=== PATIENT | female | born 1995 | race African-American/Black ===

== ENCOUNTER 2022-06-24 16:18 | Emergency (ER) | payer OTHER, SELFPAY ==
--- NOTE | 2022-06-24 16:21 | ED.SKABFB ---
HPI - Skin/Abscess/Foreign Bdy General Chief complaint: Skin/Abscess/Foreign Body Stated complaint: rash Time Seen by Provider: 06/24/22 16:21 Source: patient Mode of arrival: ambulatory Limitations: no limitations History of Present Illness HPI narrative: Pauline is a 27-year-old female patient presenting to the clinic today with complaints of a rash on her face. She reports she developed a rash approximately 3 days ago. States that the rash is a little irritating and itchy when she touches it otherwise it does not hurt. Related Data Allergies Allergy/AdvReac Type Severity Reaction Status Date / Time No Known Allergies Allergy Mild Verified 07/24/10 15:40 Review of Systems Review of Systems: Pertinent positives per HPI. Patient denies any fever, chills, headache, visual changes, dizziness, cough, runny nose, sore throat, shortness of breath, chest pain, palpitations, nausea, vomiting, diarrhea, constipation, abdominal pain, or any urinary issues. PMFSH Comments At the time of my signature, I reviewed and agree with the nursing past medical, surgical, social, and family history. There is no relevant family history pertinent to the patient complaint. Exam Narrative: General: Well-developed, well nourished, in no apparent distress Head: Normocephalic, atraumatic. Cardio: Regular rate and rhythm, s1 and s2 normal, no murmur appreciated. Resp: Clear to auscultation bilaterally, no rhonchi, rales, wheezing or rubs. Integumentary: [place], warm, and dry, intact without lesion, several acne pustules scattered on face Course Course Emergency Course: Portions of this record may have been created with voice recognition software. Level of Care: Express Care Visit Vital Signs Vital signs: Vital signs reviewed MDM - Skin/Abscess/Foreign Bdy MDM Narrative Medical decision making narrative: At the time of visit patient is resting comfortably on the exam table. I suspect patient may have acne. Prescription for benzyl peroxide and clindamycin gel was given and will have her follow-up with her PCP next week Differential Diagnosis Differential diagnosis: Likely abscess of skin or subcutaneous tissue, eczema, contact dermatitis and other (Acne vulgaris) Discharge Plan Discharge Clinical Impression: Acne vulgaris Patient Disposition: Home, Self-Care Condition: Stable Instructions: Antibiotic Form, Benzoyl Peroxide (On the skin) Additional Instructions: Wash face twice daily with benzyl peroxide and apply clindamycin gel Moisturize face daily using Cetaphil, Aquaphor, or Lubriderm Follow-up with your PCP in 1 week if symptoms persist or sooner if they worsen Prescriptions: New clindamycin phosphate 1 % gel 1 applic topical BID 30 Days Qty: 60 0RF benzoyl peroxide 4 % cleanser 1 applic topical BID 30 Days Qty: 150 0RF Follow-up/Referrals: UNKNOWN,DOCTOR [Non-Staff] - Time of Disposition: 16:47 Quality NIHSS Nursing Documentation ED NIHSS nursing documentation: reviewed/agree
[2022-06-24 16:29] VITALS: BP 109/64; PULSE 86; RESP 16; TEMP 36.5; O2SAT 100
== END 2022-06-24 16:54 | disposition home or self-care (01) ==
PROVIDERS: Emergency Provider Nurse Practitioner Family
DX: L70.0 Acne vulgaris (principal)
CPT/HCPCS: 99213; G0463

== ENCOUNTER 2023-08-19 08:28 | Emergency (ER) | payer OTHER, SELFPAY ==
[2023-08-19 08:32] VITALS: BP 121/68; PULSE 86; RESP 16; TEMP 36.4; O2SAT 100
[2023-08-19 08:56] VITALS: O2SAT 100
--- NOTE | 2023-08-19 09:01 | ED.URI ---
HPI - URI/Sore Throat General Chief Complaint: Upper Respiratory Infection Stated Complaint: strep throat? Time Seen by Provider: 08/19/23 08:45 History of Present Illness HPI Narrative: With a 28-year-old female presents to the emergency room for evaluation of a sore throat has been present for days. Patient denies fever, sinus congestion or of cough. Patient has been exposed to no known contacts of strep throat. Related Data Allergies Allergy/AdvReac Type Severity Reaction Status Date / Time amoxicillin [From Augmentin] AdvReac Nausea and Verified 08/19/23 08:58 Vomiting clavulanic acid AdvReac Nausea and Verified 08/19/23 08:58 [From Augmentin] Vomiting Review of Systems Review of Systems: CONSTITUTIONAL: Denies fever, chills, or sweats. EYES: Denies visual changes, redness, or discharge. ENT: Reports sore CARDIOVASCULAR: Denies chest pain, palpitations, or edema. RESPIRATORY: Denies cough or dyspnea. GASTROINTESTINAL: Denies abdominal pain, nausea, vomiting, or diarrhea. GENITOURINARY: Denies dysuria or hematuria. SKIN: Denies rash or itching. MUSCULOSKELETAL: Denies back pain, joint pain, or myalgia. NEUROLOGIC: Denies headache, numbness, dizziness, or weakness. PSYCHIATRIC: Denies anxiety or depression. Exam Narrative: GENERAL: Well-appearing, well-nourished, no physical limitations, and in no acute distress. HEAD: Normocephalic, atraumatic. EYES: Conjunctivae normal, PERRLA and EOMI. ENT: External nose normal, Nares clear, no rhinorrhea or epistaxis. Mucous membranes moist. Oropharynx without exudate, multiple tonsiliths NECK: Supple. CHEST: Clear to auscultation. No respiratory distress. No wheezes rales or rhonchi. HEART: Regular rate and rhythm. No murmur heard. Normal peripheral pulses. EXTREMITIES: Normal range of motion. No edema. No clubbing or cyanosis SKIN: Warm, dry, no rash. No noted wounds NEURO: No focal deficits. Alert and oriented x3. MAEW. CN's II-XI intact bilaterally, normal gait PSYCH: Cooperative. Normal mood and affect. Course Vital Signs Vital signs: Vital Signs Temperature 36.4 C 08/19/23 08:32 Pulse Rate 86 04/18/24 08:32 Respiratory Rate 16 08/19/23 08:32 Blood Pressure 121/68 08/19/23 08:32 Pulse Oximetry 100 08/19/23 08:32 Oxygen Delivery Room Air 08/19/23 08:32 Temperature 36.4 C 08/19/23 08:32 Pulse Rate 86 08/19/23 08:32 Respiratory Rate 16 08/19/23 08:32 Blood Pressure 121/68 08/19/23 08:32 Pulse Oximetry 100 08/19/23 08:56 Oxygen Delivery Room Air 08/19/23 08:56 MDM - URI/Sore Throat Lab Data Labs: Lab Results 08/19/23 08/19/23 Range/Units 08:39 09:33 Monoscreen Negative (Negative) Group A Strep (PCR) Not detected (Negative) Discharge Plan Discharge Clinical Impression: [place] Patient Disposition: Home, Self-Care Condition: Stable Instructions: Antibiotic Form Prescriptions: No Action clindamycin phosphate 1 % gel 1 applic topical BID 30 Days Qty: 60 0RF benzoyl peroxide 4 % cleanser 1 applic topical BID 30 Days Qty: 150 0RF Follow-up/Referrals: UNKNOWN,DOCTOR [Non-Staff] - Time of Disposition: 10:29
[2023-08-19 09:14] LABS: Strep Group A RT-PCR NOT DETECTED (Negative)
[2023-08-19 10:21] LABS: Monoscreen Negative (Negative); Negative Monotest Control Negative (Negative); Positive Monotest Control Positive (Positive)
[2023-08-19 10:30] VITALS: BP 129/80; PULSE 82; RESP 18; O2SAT 100
== END 2023-08-19 10:36 | disposition home or self-care (01) ==
PROVIDERS: Emergency Medicine; Emergency Provider Nurse Practitioner Family; Referring Provider Emergency Medicine
DX: J03.90 Acute tonsillitis, unspecified (principal)
CPT/HCPCS: 36415; 86308; 87651; 99283

== ENCOUNTER 2024-06-15 14:02 | Outpatient (CLI) | payer OTHER, SELFPAY ==
--- NOTE | ~2024-06-15 | US_ITS ---
EXAMINATION: US pelvic complete w TV DATE: 06/15/2024 15:08 INDICATION: Excessive and frequent menstruation TECHNIQUE: Multiple transabdominal and endovaginal sonographic images of the pelvis were obtained. COMPARISON: None. FINDINGS: The uterus measures 10.1 x 4.2 x 5.3 cm. The endometrial complex measures 14 mm in thickness. There are a few anechoic nabothian cysts at the cervix measuring up to 7 mm. The right ovary measures 2.3 x 1.9 x 1.6 cm. The left ovary measures 3.1 x 2.3 x 2.3 cm. Vascular flow identified at both ovaries o n color Doppler. There are prominent bilateral parametrial vessels. There is no free fluid in the pel vis. IMPRESSION: 1. Likely incidental prominent bilateral parametrial vessels and a few small nabothian cysts the cerv ix. Otherwise unremarkable pelvic ultrasound. Reviewed, dictated and finalized at location A. IONARY FIREMAN IMPRESSION: 1. Likely incidental prominent bilateral parametrial vessels and a few small na bothian cysts the cervix. Otherwise unremarkable pelvic ultrasound.
--- OUTSIDE RECORDS SUMMARY | 2024-06-15 14:08 | XMS_ITS | Patient Health Summary ---
Author Organization [facility] Address [address] [place] [address] Care Team Providers Care Internet Consultant Name Role Phone Pcp, Quin Mejia Im-Fm Primary Care Provider Unavailable Note from [facility],non-owned Affiliates and Associated Physician Practices is amultiple site organization consisting of ambulatory clinics and hospital sitesin [place], [place], [place] and [place]. This disclosure is being madepursuant to the Care Everywhere program and may not contain all information available regarding this patient. Last updated 18.[facility] Allergies * Amoxicillin-Pot Clavulanate(Vomiting) -Low Criticality Medications * Be aware that medications may not be up to date on this document. Alwaysverify current medications with the patient. * Multiple Vitamin (MULTI-VITAMIN DAILY PO) Take 2 Pieces by mouth once daily Active Problems Problem Noted Date Diagnosed Date Iron deficiency anemia 07/16/2021 Mechanical complication due to intrauterine contraceptive device Resolved Problems Problem Noted Date Diagnosed Date Resolved Date Gestational thrombocytopenia 09/11/2015 03/03/2021 IUGR (intrauterine growth restriction) 07/17/2015 09/25/2015 Encounter for supervision of normal first in second trimester 06/11/2015 09/25/2015 Small for gestational age fe tus affecting management of mother 09/25/2015 Encounter for supervision of normal first in third trimester 03/03/2021 Post-term , 40-42 weeks of gestation 03/03/2021 Arrest of descent, delivered , current hospitalization 03/03/2021 S/P 03/03/2021 Immunizations * Covid Pfizer primary monovalent 12+ yr 0.3mL Purple cap(Given 09/19/2020) * DTP(Given 07/20/1994, 1993, 1993, 1993) * DTaP VACCINE IM (6wk-6yrs)(Given 08/19/1998) * HEP A PED/ADULT VACCINE(Given 09/27/2007) * HEP A PEDS 2 DOSE(Given 12/30/2000) * HEP B VACCINE(Given 11/28/2007) * HEP B VACCINE, PED/ADOL(Given 09/27/2007) * HIB VACCINE(Given 1993, 1993, 1993) * Human Papilloma Virus Quadrivalent Vaccine(Given 04/10/2009) * INFLUENZA VACCINE(Given 02/01/2020) * INFLUENZA VACCINE, QUADR. (FLUZONE; FLULAVAL; FLUARIX; AFLURIA QUADRIVALENT; 6MO+), 0.5 ML (IIV4)(Given 04/11/2019, 04/06/2018, 06/11/2015) * MENINGOCOCCAL CONJUGATE (MCV4P)(Given 04/10/2009) * MMR(Given 08/19/1998, 02/11/1994) * POLIO OPV(Given 08/19/1998, 07/20/1994, 1993, 1993, 1993) * TDAP (7yrs+)(Given 08/07/2015, 04/10/2009, 09/27/2007) * VARICELLA(Given 04/10/2009) Social History Tobacco Use Types Packs/Day Years Used Date Smoking Tobacco: Never Smokeless Tobacco: Never Tobacco Cessation:Counseling Given: Not Answered Alcohol Use Standard Drinks/Week Comments No 0 (1 standard drink = 0.6 oz pur e alcohol) PHQ-2 Answer Date Recorded PHQ2 TOTAL SCORE 0 08/24/2022 Sex and Gender Information Value Date Recorded Sex Assigned at Not on file Gender Identity Not on file Sexual Orientation Not on file Last Filed Vital Signs Vital Sign Reading Time Taken Comments Blood Pressure 116/62 03/31/2023 10:18 AM BUILDING CERTIFIER Pulse 76 08/24/2022 9:25 AM CDT Temperature 36.6 C (97.8 F) 08/24/2022 8:51 AM CDT Respiratory Rate 16 08/24/2022 8:51 AM CDT Oxygen Saturation 100% 08/24/2022 8:51 AM CDT Inhaled Oxygen Concentration - - Weight 96.1 kg (211 lb 12.8 oz) 023 10:18 AM BUILDING CERTIFIER Height 170.2 cm (5' 7 ) 03/31/2023 10:1 8 AM BUILDING CERTIFIER Body Mass Index 33.17 03/31/2023 10:18 AM BUILDING CERTIFIER Procedures * US PELVIS W TRANSVAG NON OB(Performed 05/12/2023) Performed for Menorrhagia with regular cycle * URINALYSIS W/MICROSCOPIC REFLEX TO CULTURE(Performed 09/10/2022) Performed for Urinary incontinence, unspecified type * CULTURE URINE REFLEXED III(Performed 09/10/2022) * URINALYSIS W/MICROSCOPIC REFLEX TO CULTURE(Performed 09/01/2022) * CULTURE URINE(Performed 09/01/2022) * CULTURE URINE REFLEXED II(Performed 09/01/2022) * US PELVIS W TRANSVAG W DOP NON OB(Performed 04/08/2022) Performed for Menorrhagia with regular cycle * US PELVIS W TRANSVAG W DOP NON OB(Performed 02/06/2022) Performed for Menorrhagia with regular cycle, Urinary incontinence, unspecified type * URINALYSIS MICROSCOPIC ONLY REFLEXED(Performed 01/26/2022) Performed for Urinary incontinence, unspecified type * CULTURE URINE(Performed 01/26/2022) Performed for Urinary incontinence, unspecified type * URINALYSIS REFLEX MICROSCOPIC REFLEX CULTURE(Performed 01/20/2022) Performed for Urinary incontinence, unspecified type * PAP IG LB+HPV APTIMA(Performed 03/03/2021) Performed for Well woman exam with routine gynecological exam * TRICHOMONAS RAPID TEST(Performed 03/03/2021) Performed for Well woman exam with routine gynecological exam * CHLAMYDIA + GC AMPLIFIED PROBE(Performed 03/03/2021) Performed for Well woman exam with routine gynecological exam * CARDIAC RHYTHM STRIP ORDER(Performed 11/07/2018) * PATHOLOGY TISSUE EXAM (STL)(Performed 11/02/2018) Performed for Diagnosis unknown * DILATION AND CURETTAGE (D&C) / SUCTION(Performed 11/02/2018) Performed for Diagnosis unknown * HCG URINE QUALITATIVE - POCT (IP) INTERFACED(Performed 11/02/2018) * HCG URINE QUAL POCT NOTIFICATION(Performed 11/02/2018) Performed for Preop examination * WA REMOVE INTRAUTERINE DEVICE(Performed 10/30/2018) Performed for Attempted IUD removal, unsuccessful * HCG URINE QUALITATIVE - POINT OF CARE (AMB)(Performed 10/28/2018) Performed for Attempted IUD removal, unsuccessful * HEPATITIS SCREEN ACUTE(Performed 01/07/2018) Performed for Healthcare maintenance * RPR(Performed 01/07/2018) Performed for Healthcare maintenance * HIV-1 HIV-2 ANTIBODY + HIV P24 AG PANEL(Performed 01/07/2018) Performed for Healthcare maintenance * TRICHOMONAS RAPID TEST(Performed 01/07/2018) Performed for Healthcare maintenance * CHLAMYDIA + GC AMPLIFIED PROBE(Performed 01/07/2018) Performed for Healthcare maintenance * HCG URINE QUALITATIVE - POCT (IP) SLH(Performed 01/29/2017) * PAP LB RFLX HPV ASCU(Performed 12/29/2016) Performed for Well woman exam * HPV DNA PROBE HIGH RISK(Performed 12/29/2016) Performed for Well woman exam * CHLAMYDIA + GC AMPLIFIED PROBE(Performed 12/29/2016) Performed for Well woman exam * PATHOLOGY/GENETICS HISTORICAL-ONBASE(Performed 12/29/2016) * CBC W AUTO DIFFERENTIAL(Performed 12/24/2015) * HCG URINE QUALITATIVE - POINT OF CARE(Performed 12/24/2015) * LAB RESULTS ORDER(Performed 11/18/2015) * IMAGING/RADIOLOGY/XRAY RESULTS ORDER(Performed 11/18/2015) * CBC W AUTO DIFFERENTIAL(Performed 11/14/2015) * GENTAMICIN LEVEL RANDOM(Performed 11/14/2015) * CROSSMATCH RBC LEUKOREDUCED(Performed 11/13/2015) Performed for Post-term , 40-42 weeks of gestation ([facility]), Encounter for supervision of normal first in third trimester ([facility]), Gestational thrombocytopenia, third trimester ([facility]) * CROSSMATCH RBC LEUKOREDUCED(Performed 11/13/2015) Performed for Post-term , 40-42 weeks of gestation ([facility]), Encounter for supervision of normal first in third trimester ([facility]), Gestational thrombocytopenia, third trimester ([facility]) * PATHOLOGY TISSUE EXAM (STL)(Performed 11/13/2015) Performed for Diagnosis unknown * BLOOD GASES CORD GALINDO (ISTAT)(Performed 11/13/2015) * BLOOD GASES CORD ART (ISTAT)(Performed 11/13/2015) * NEURAXIAL BLOCK(Performed 11/12/2015) * TYPE + SCREEN PANEL(Performed 11/11/2015) * CBC W AUTO DIFFERENTIAL(Performed 11/11/2015) * CBC W AUTO DIFFERENTIAL(Performed 11/06/2015) * GLUCOSE PROTEIN KETONE URINE - POINT OF CAR(Performed 11/06/2015) * CBC W AUTO DIFFERENTIAL(Performed 10/30/2015) * GLUCOSE PROTEIN KETONE URINE - POINT OF CAR(Performed 10/30/2015) * PLATELET COUNT AUTO(Performed 10/23/2015) * GLUCOSE PROTEIN KETONE URINE - POINT OF CAR(Performed 10/23/2015) * GLUCOSE PROTEIN KETONE URINE - POINT OF CAR(Performed 10/16/2015) * CBC W AUTO DIFFERENTIAL(Performed 10/09/2015) * CULTURE STREP B(Performed 10/09/2015) * GLUCOSE PROTEIN KETONE URINE - POINT OF CAR(Performed 10/09/2015) * GLUCOSE PROTEIN KETONE URINE - POINT OF CAR(Performed 09/25/2015) * GLUCOSE PROTEIN KETONE URINE - POINT OF CAR(Performed 09/11/2015) * GLUCOSE PROTEIN KETONE URINE - POINT OF CAR(Performed 08/21/2015) * GLUCOSE CHALLENGE(Performed 08/07/2015) * HIV-1 HIV-2 ANTIBODY + HIV P24 AG PANEL(Performed 08/07/2015) * RPR(Performed 08/07/2015) * CBC W AUTO DIFFERENTIAL(Performed 08/07/2015) * SONOGRAM - COMPLETE(Performed 08/07/2015) Performed for Encounter for supervision of normal first in second trimester ([facility]) * GLUCOSE PROTEIN KETONE URINE - POINT OF CAR(Performed 08/07/2015) * GLUCOSE PROTEIN KETONE URINE - POINT OF CAR(Performed 07/17/2015) * SONOGRAM - COMPLETE(Performed 07/17/2015) * SONOGRAM - COMPLETE(Performed 06/11/2015) * SECTION (EMERGENCY) Results * US PELVIS W TRANSVAG NON OB (05/12/2023 12:59 PM BUILDING CERTIFIER) Anatomical Region Laterality Modality Pelvis Ultrasound 05/12/2023 2:45 PM BUILDING CERTIFIER Impressions 05/12/2023 2:52 PM BUILDING CERTIFIER IMPRESSION: Endometrium measures about 1.1 cm. Otherwise, unremarkable ultrasound of the uterus and both ovaries, visualized only transvaginally. Edited by Jaz Pollack on 05/12/2023 2:51 PM > Interpreting Provider: Alma Lim MD on 05/12/2023 2:52 PM Narrative 05/12/2023 2:52 PM BUILDING CERTIFIER ULTRASOUND OF THE PELVIS WITH TRANSVAGINAL EVALUATION DATE: 05/12/2023 12:59 PM HISTORY: N92.0: Excessive and frequent menstruation with regular cycle. COMPARISON: None available. FINDINGS: TRANSABDOMINAL STUDY: Multiple transverse, longitudinal and oblique images of the pelvis were obtained with the bladder suboptimally distended. Anteverted uterus identified. The ovaries are not visualized. No free fluid seen. TRANSVAGINAL STUDY: After the patient voided, transvaginal ultrasound showed the endometrium measuring 1.1 cm. The uterus measures 9.0 x 4.9 x 4.7 cm. The left ovary measures 2.2 x 2.5 x 2.3 cm. The right ovary measures 1.9 x 1.5 x 1.7 cm. No free fluid seen. Procedure Note Alma Lim MD - 05/12/2023 ULTRASOUND OF THE PELVIS WITH TRANSVAGINAL EVALUATION DATE: 05/12/2023 12:59 PM HISTORY: N92.0: Excessive and frequent menstruation with regular cycle. COMPARISON: None available. FINDINGS: TRANSABDOMINAL STUDY: Multiple transverse, longitudinal and obliqueimages of the pelvis were obtained with the bladder suboptimally distended. Anteverted uterus identified. The ovaries are not visualized. No freefluid seen. TRANSVAGINAL STUDY: After the patient voided, transvaginal ultrasound showed the endometrium measuring 1.1 cm. The uterus measures 9.0 x 4.9 x 4.7 cm. The left ovary measures 2.2 x 2.5 x 2.3 cm. The right ovary measures 1.9 x 1.5 x 1.7 cm. No free fluid seen. IMPRESSION: Endometrium measures about 1.1 cm. Otherwise, unremarkable ultrasound of the uterus and both ovaries, visualized only transvaginally. Edited by Jaz Pollack on 05/12/2023 2:51 PM > Interpreting Provider: Alma Lim MD on 05/12/2023 2:52 PM Todd Pettit MD US ORDERABLES * CULTURE URINE REFLEXED III (09/10/2022 8:36 AM CDT) Reflexive Urine Culture See Below [facility] Comment: NO CULTURE INDICATED Test Performed at: [address] [address] NEYMAR POLLACK MD 09/10/2022 8:36 AM CDT 09/10/2022 8:36 AM CDT Jeannette Mcghee MD LAB - MICROBIOLOGY O RDERABLES Performing Organization Address City/[facility]/ZIP Co de Phone Number [address] [address] * (ABNORMAL) URINALYSIS W/MICROSCOPIC REFLEX TO CULTURE (09/10/2022 8:36 AM CDT) Only the most recent of2 resultswithin the time period is included. Pathologist [facility] Color UA DARK YELLOW YELLOW [facility] Appearance CLEAR CLEAR [facility] Specific [place] UA 1.029 1.001 - 1.035 [facility] pH UA 7.5 5.0 - 8.0 [facility] Glucose UA NEGATIVE NEGATIVE [facility] Bilirubin UA NEGATIVE NEGATIVE [facility] Ketone UA TRACE(A) NEGATIVE [facility] Blood UA NEGATIVE NEGATIVE [facility] Protein UA TRACE(A) NEGATIVE [facility] Nitrite NEGATIVE NEGATIVE [facility] Leukocyte Esterase NEGATIVE NEGATIVE [facility] WBC UA 0-5 < OR = 5 /HPF [facility] RBC UA NONE SEEN < OR = 2 /HPF [facility] Epithelial Cell UA 0-5 < OR = 5 /HPF [facility] Bacteria UA NONE SEEN NONE SEEN /HPF [facility] Hyaline Casts NONE SEEN NONE SEEN /LPF [facility] Comment: Test Performed at: [address] [id number] NEYMAR POLLACK MD Urine URINE SPECIMEN OBTAINED BY CLEAN CATCH PROCEDURE / Unknown 09/10/2022 8:36 AM CDT 09/10/2022 8:36 AM CDT Jeannette Mcghee MD LAB - URINALYSIS ORD ERABLES Performing Organization Address [facility] Co de Phone Number [address] [address] * CULTURE URINE REFLEXED II (09/01/2022 8:10 AM CDT) [facility] Reflexive Urine Culture See Below [facility] Comment: CULTURE INDICATED - RESULTS TO FOLLOW Test Performed at: [facility] [address] NEYMAR POLLACK MD 09/01/2022 8:10 AM CDT 09/01/2022 8:11 AM CDT Victorina Leahy APRN-SLIDE FASTENER REPAIRER LAB - MICROBIO LOGY ORDERABLES Performing Organization Address [facility] de Phone Number [address] [address] * CULTURE URINE (09/01/2022 8:10 AM CDT) Only the most recent of2 resultswithin the time period is included. Culture [facility] Comment: CULTURE, URINE, ROUTINE Micro Number: [id number] Test Status: Final Specimen Source: Urine Specimen Quality: Adequate Result: No Growth Test Performed at: [facility] [address] NEYMAR POLLACK MD 09/01/2022 8:10 AM CDT 09/01/2022 8:11 AM CDT Victorina Leahy APRN-SLIDE FASTENER REPAIRER LAB - MICROBIO LOGY ORDERABLES Performing Organization Address [facility] de Phone Number [place] [phone] * US PELVIS W TRANSVAG W DOP NON OB (04/08/2022 11:39 AM BUILDING CERTIFIER) Only the most recent of2 resultswithin the time period is included. Anatomical Region Laterality Modality Pelvis Ultrasound 04/08/2022 11:4 2 AM BUILDING CERTIFIER Impressions 04/08/2022 11:44 AM BUILDING CERTIFIER IMPRESSION: Thickening of the endometrium without discrete endometrial or uterine mass. 2.1 cm resolving hemorrhagic cyst within the ovary. > Interpreting Provider: Ar Diop MD on 04/08/2022 11:44 AM Narrative 04/08/2022 11:44 AM BUILDING CERTIFIER Procedure: US PELVIS W TRANSVAG W DOP NON OB Exam Date: 04/08/2022 11:39 AM Location: [facility] INDICATION: N92.0: Excessive and frequent menstruation with regular cycle FINDINGS: The study is compared to the exam from January 2022. The uterus measured 0.8 x 5.2 x 6.5 cm. There is no uterine mass. Endometrial stripe is thickened measuring 2.3 mm. There is no endometrial mass. The right ovary measured 3.5 x 1.7 x 3.7 cm. There is no mass. Normal color Doppler and spectral waveforms are noted. The left ovary measured 4.5 x 2.7 x 1.8 cm. There appears to be a 2.1 cm resolving hemorrhagic cyst within the left ovary. Normal color Doppler and spectral waveforms are noted. No significant free fluid is seen within the pelvis. Procedure Note Ar Diop MD - 04/08/2022 Procedure: US PELVIS W TRANSVAG W DOP NON OB Exam Date: 1:39 AM Location: [facility] INDICATION: N92.0: Excessive and frequent menstruation with regularcycle FINDINGS: The study is compared to the exam from January 2022. The uterus measured 0.8 x 5.2 x 6.5 cm. There is no uterine mass. Endometrial stripe is thickened measuring 2.3 mm. There is noendometrial mass. The right ovary measured 3.5 x 1.7 x 3.7 cm. There is no mass. Normalcolor Doppler and spectral waveforms are noted. The left ovary measured 4.5 x 2.7 x 1.8 cm. There appears to be a 2.1 cm resolving hemorrhagic cyst within the left ovary. Normal color Dopplerand spectral waveforms are noted. No significant free fluid is seen within the pelvis. IMPRESSION: Thickening of the endometrium without discrete endometrial or uterinemass. 2.1 cm resolving hemorrhagic cyst within the ovary. > Interpreting Provider: Ar Diop MD on 04/08/2022 11:44 AM Jeannette Mcghee MD US ORDERABLES * URINALYSIS MICROSCOPIC ONLY REFLEXED (01/26/2022 10:21 AM CDT) WBC UA None seen 0 - 5 /hpf [facility] INSURANCE BILL RBC UA None seen 0 - 2 /hpf [facility] INSURANCE BILL Epithelial Cells (non renal) 0-10 0 - 10 /hpf [facility] INSURANCE BILL Epithelial Cells (renal) NOT AVAILABLE [facility] INSURANCE BILL Comment:Result cannot be obt ained for this observation. Casts ua None seen None seen /lpf [facility] INSURANCE BILL Casts UA NOT AVAILABLE [facility] INSURANCE BILL Comment:Result cannot be obt ained for this observation. Crystals UA NOT AVAILABLE [facility] INSURANCE BILL Comment:Result cannot be obt ained for this observation. Crystals UA NOT AVAILABLE [facility] INSURANCE BILL Comment:Result cannot be obt ained for this observation. Mucus UA NOT AVAILABLE [facility] INSURANCE BILL Comment:Result cannot be obt ained for this observation. Bacteria UA None seen None seen/Few [facility] INSURANCE BILL Yeast UA NOT AVAILABLE [facility] INSURANCE BILL Comment:Result cannot be obt ained for this observation. Trichomonas UA NOT AVAILABLE [facility] BILL Comment:Result cannot be obt ained for this observation. Comment Urine NOT AVAILABLE [facility] INSURANCE BILL Comment:Result cannot be obt ained for this observation. 01/26/2022 10:2 1 AM CDT 01/26/2022 Narrative Resulting Agency Comment [facility] [address] [id number] Jeannette Mcghee MD LAB - URINALYSIS ORD ERABLES [facility] INSURANCE BILL [address] [place] [address] * (ABNORMAL) URINALYSIS REFLEX MICROSCOPIC REFLEX CULTURE (01/20/2022 3:30 PM CDT) Specific [place] UA 1.012 1.005 - 1.030 [facility] INSURANCE BILL pH UA 7.5 5.0 - 7.5 [facility] INSURANCE BILL Color UA Yellow Yellow [facility] INSURANCE BILL Appearance Clear Clear [facility] INSURANCE BILL Leukocyte UA Trace(A) Negative [facility] INSURANCE BILL Protein UA Negative Negative/Tr tam [facility] INSURANCE BILL Glucose UA Negative Negative [facility] INSURANCE BILL Ketone UA Negative Negative [facility] INSURANCE BILL Occult Blood Urine Negative Negative [facility] INSURANCE BILL Bilirubin UA Negative Negative [facility] INSURANCE BILL Urobilinogen 0.2 0.2 - 1.0 mg/dL [facility] INSURANCE BILL Nitrite UA Negative Negative [facility] INSURANCE BILL Microscopic Examination Urine See below: [facility] INSURANCE BILL Comment:Microscopic was dona cated and was performed. Microscopic Examination Urine NOT AVAILABLE [facility] INSURANCE BILL Comment:Result cannot be obt ained for this observation. Urinalysis Reflex [facility] INSURANCE BILL Comment:This specimen has re flexed to a Urine Culture. Urine URINE SPECIMEN OBTAINED BY CLEAN CATCH PROCEDURE / Unknown 01/20/2022 3:30 PM CDT 01/26/2022 Narrative Resulting Agency Comment [facility] performed at: [facility] [address] [id number] Jeannette Mcghee MD LAB - URINALYSIS ORD ERABLES Performing Organization Address City/[facility]/ZIP Co de Phone Number [facility] [employer] INSURANCE BILL [address] [place] [address] * CHLAMYDIA + GC AMPLIFIED PROBE (STL) (03/03/2021 2:01 PM CDT) Chlamydia Amplified Probe Negative Negative 03/03/2021 10:40 PM CDT [facility] GC Amplified Probe Negative Negative 03/03/2021 10:40 PM CDT [facility] Microbiology PART OF UTERINE CERVIX / Unknown Collection / Unknown 03/03/2021 2:01 PM CDT 03/03/2021 2:15 PM CDT Narrative [facility] - 03/03/2021 10:40 PM CDT Results based on detection/no detection of ribosomal RNA by amplified method. Anuradha Kumar MD LAB - MICROBIOLOGY O RDERABLES [facility] [address] [place] [address], [facility] [phone] * PAP IG LB+HPV APTIMA (03/03/2021 2:01 PM CDT) Diagnosis Comment 03/07/2021 5:08 AM CDT [facility] ([facility]) Comment:NEGATIVE FOR INTRAEP ITHELIAL LESION OR MALIGNANCY. Specimen Adequacy Comment 5:08 AM CDT [facility] ([facility]) Comment: Satisfactory for evaluation. Endocervical and/or squamous metaplastic cells (endocervical component) are present. Performed by Comment 03/07/2021 5:08 AM CDT [facility] ([facility]) Comment:Yann Miles, Cyto technologist (ASCP) Comment . 03/07/2021 5:08 AM CDT [facility] ([facility]) Note Comment 03/07/2021 5:08 AM CDT [facility] ([facility]) Comment: The Pap smear is a screening test designed to aid in the detection of premalignant and malignant conditions of the uterine cervix. It is not a diagnostic procedure and should not be used as the sole means of detecting cervical cancer. Both false-positive and false-negative reports do occur. [facility] CPT Code Automation Comment 03/07/2021 5:08 AM CDT [facility] ([facility]) Comment: This liquid based ThinPrep(R) pap test was screened with the use of an image guided system. Human papillomavirus Aptima Negative Negative 03/07/2021 5:08 AM CDT [facility] ([facility]) Comment: This nucleic acid amplification test detects fourteen high-risk HPV types (16,18,31,33,35,39,45,51,52,56,58,59,66,68) without differentiation. Pathology/Cytolo gy PART OF UTERINE CERVIX / Unknown Collection / Unknown 03/03/2021 2:01 PM CDT 03/03/2021 2:14 PM CDT Narrative [facility] ([facility]) - 03/07/2021 5:08 AM CDT Performed at: 01 - [address] [id number] Marking Room Supervisor: Joy Pyle MD, Phone: [phone] Performed at: 02 - [facility] [id number] Marking Room Supervisor: Joy Pyle MD, Phone: [phone] Specimen Comment: No. of containers..01 ThinPrep Vial Anuradha Kumar MD LAB - PATHOLOGY/CYTO LOGY ORDERABLES [facility] ([facility]) [address] [place] [address] * TRICHOMONAS RAPID TEST (03/03/2021 2:01 PM CDT) Only the most recent of2 resultswithin the time period is included. Trichomonas Rapid Test Negative Negative 03/03/2021 2:45 PM CDT [facility] Microbiology VAGINAL SWAB / Unknown Collection / Unknown 03/03/2021 2:01 PM CDT 03/03/2021 2:15 PM CDT Anuradha Kumar MD LAB - MICROBIOLOGY O RDERABLES [facility] [address] [place] [address] * CARDIAC RHYTHM STRIP ORDER (11/07/2018 12:24 PM CDT) Narrative 11/07/2018 12:24 PM CDT Ordered by an unspecified provider. Scanned Document CARDIAC SERVICES ORD ERABLES * GROSS + MICRO EXAM (STL) (11/02/2018 1:38 PM CDT) Only the most recent of2 resultswithin the time period is included. Case Report Surgical Pathology Report Case: [id number] Authorizing Provider: Anuradha Kumar MD Collected: 11/02/2018 01:38 PM Ordering Location: [facility]TRA Received: 11/02/2018 02:06 PM Pathologist: Sandi Vick MD Specimen: IUD, For gross only please 11/04/2018 10:16 AM CDT [facility] Final Diagnosis 1. Foreign object, intrauterine device, removal: -- Intrauterine device /AQ/jam 11/04/2018 10:16 AM CDT [facility] Clinical History 23 year old female 11/04/2018 10:16 AM CDT [facility] Gross Description The requisition and specimen labels are identified with the patient's name, Pauline Gallego. Specimen A intrauterine device, for gross examination only consists of a T-shaped white plastic copper device with horizontal arm measuring 3.1 cm and vertical arm measuring 2.9 cm. There is a metallic wire attached measuring 2.2 cm. No soft tissue is identified attached to the specimen. No sections are taken. /KS/jam 11/04/2018 10:16 AM CDT [facility] Disclaimer All histochemical and/or immunohistochemical results are interpreted with controls that demonstrate appropriate staining reactions before reporting results. Note on use of immunocytochemistry reagents: This test was developed and its performance characteristic determined by [facility] [facility] Department of Laboratory Medicine. It has not been cleared or approved by the U.S. Food and Drug Administration (FDA). The FDA has determined that such clearance or approval is not necessary. The test is used for clinical purpose. It should not be regarded as investigational or for research. This laboratory is certified to perform high complexity testing. 11/04/2018 10:16 AM CDT [facility] Embedded Images 11/04/2018 10:16 AM CDT [facility] Pathology/Cytolo gy INTRAUTERINE CONTRACEPTIVE DEVICE SUBMITTED SPECIMEN / Unknown 11/02/2018 1:38 PM CDT 11/02/2018 2:06 PM CDT Anuradha Kumar MD LAB - PATHOLOGY/CYTO LOGY ORDERABLES [facility] [address] [place] [phone] * HCG URINE QUALITATIVE - POCT (IP) INTERFACED (11/02/2018 12:09 PM CDT) HCG Qual Urine Negative Negative 11/02/2018 12:11 PM CDT [facility] Urine URINE / Unknown 11/02/2018 1 2:09 PM CDT 11/02/2018 12:11 PM CDT Anuradha Kumar MD LAB - POINT OF CARE ORDERABLES [facility] [address] [place] [id number] * HCG URINE QUAL POCT NOTIFICATION (11/02/2018 11:59 AM CDT) Comment Notification Label Only - See Separate Report 11/02/2018 1:00 PM CDT [facility] Urine URINE / Unknown 11/02/2018 1 1:59 AM CDT 11/02/2018 11:59 AM CDT Carlos Pina MD LAB - URINALYSIS OR DERABLES Performing Organization Address City/[facility]/ZIP Co de Phone Number [facility] [address] [place] [address] * [place] REMOVE INTRAUTERINE DEVICE (10/30/2018 6:24 PM CDT) Narrative Lisa Contreras MD - 10/30/2018 6:24 PM CDT Lisa Contreras MD 10/30/2018 6:24 PM See PN Lisa Contreras MD PROCEDURE/MINOR SURG ICAL ORDERABLES * HCG URINE QUALITATIVE - POINT OF CARE (AMB) (10/28/2018) Pathologist [facility] HCG Qual Urine Negative Negative QC Verified Yes Yes Urine URINE / Unknown 10/28/2018 Lisa Contreras MD LAB - POINT OF CARE ORDERABLES * HIV-1 HIV-2 ANTIBODY + HIV P24 AG PANEL (01/07/2018 1:40 PM CDT) Only the most recent of2 resultswithin the time period is included. Pathologist [facility] HIV1/2 Ab + P24 Ag Non Reactive Non Reactive 01/07/2018 4:39 PM CDT [facility] Blood BLOOD SPECIMEN / Unknown Venipuncture / Unknown 01/07/2018 1:40 PM CDT 01/07/2018 1:47 PM CDT Narrative [facility] - 01/07/2018 4:39 PM CDT No Laboratory evidence of HIV infection. Terrie Saez MD LAB - CHEMISTRY HUGO JENKINS [facility] [address] [place] [address] * RPR (01/07/2018 1:40 PM CDT) Only the most recent of2 resultswithin the time period is included. RPR Non Reactive Non Reactive 01/08/2018 11:32 AM CDT [facility] Blood BLOOD SPECIMEN / Unknown Venipuncture / Unknown 01/07/2018 1:40 PM CDT 01/07/2018 1:47 PM CDT Terrie Saez MD LAB - CHEMISTRY HUGO GREGORY Performing Organization Address City/[facility]/ZIP Co de Phone Number [facility] [address] [place] [address] * CHLAMYDIA + GC AMPLIFIED PROBE (01/07/2018 1:40 PM CDT) Only the most recent of2 resultswithin the time period is included. [facility] Chlamydia Amplified Probe Negative Negative 01/10/2018 10:24 AM CDT [facility] GC Amplified Probe Negative Negative 01/10/2018 10:24 AM CDT [facility] Microbiology ENTIRE ENDOCERVIX / Unknown Collection / Unknown 01/07/2018 1:40 PM CDT 01/07/2018 1:47 PM CDT Narrative [facility] - 01/10/2018 10:24 AM CDT Results based on detection/no detection of ribosomal RNA by amplified method. Terrie Saez MD LAB - MICROBIOLOGY O RDERABLES Performing Organization Address City/[facility]/ZIP Co de Phone Number [facility] [address] [phone] * HEPATITIS SCREEN ACUTE (01/07/2018 1:40 PM CDT) Pathologist [facility] HAV Antibody IgM Non Reactive Non Reactive 01/07/2018 3:12 PM CDT [facility] HBsAg Non Reactive Non Reactive 01/07/2018 3:12 PM CDT [facility] HBc Antibody IgM Non Reactive Non Reactive 01/07/2018 3:12 PM CDT [facility] HCV Antibody Screen Non Reactive Non Reactive 01/07/2018 3:12 PM CDT [facility] HCV S/C Ratio 0.05 0.00 - 0.79 01/07/2018 3:12 PM CDT [facility] Comment: Fpabig-dz-faeykm ratio (S/CO) <0.80: Non Reactive Blood BLOOD SPECIMEN / Unknown Venipuncture / Unknown 01/07/2018 1:40 PM CDT 01/07/2018 1:47 PM CDT Narrative [facility] - 01/07/2018 3:12 PM CDT Non Reactive - Antibodies to Hepatitis C virus (HCV) were not detected, result does not exclude early acute HCV infection. Non Reactive - Antibodies to Hepatitis C virus (HCV) were not detected, result does not exclude early acute HCV infection. Terrie Saez MD LAB - CHEMISTRY ORDE GREGORY [facility] [address] [place] [phone] * HCG URINE QUALITATIVE - POCT (IP) [facility] (01/29/2017) Test Urine [facility] Comment:neg Urine specimen (specimen) 01/29/2017 Lisa Contreras MD LAB - POINT OF CARE ORDERABLES Performing Organization Address [facility]/ZIP Co de Phone Number [facility] * (ABNORMAL) PAP LB RFLX HPV ASCU (12/29/2016 10:29 AM CDT) Diagnosis Comment(A) 01/12/2017 8:11 PM CDT [facility] ([facility]) Comment: EPITHELIAL CELL ABNORMALITY. ATYPICAL SQUAMOUS CELLS OF UNDETERMINED SIGNIFICANCE. Recommendation Comment(A) 01/12/2017 8:11 PM CDT [facility] ([facility]) Comment:Suggest follow up as clinically appropriate. Specimen Adequacy Comment 017 8:11 PM CDT [facility] ([facility]) Comment: Satisfactory for evaluation. Endocervical and/or squamous metaplastic cells (endocervical component) are present. Areas of partially obscuring blood are present. Performed by Comment 01/12/2017 8:11 PM CDT [facility] ([facility]) Comment:Giselle Bateman, Cyto technologist (ASCP) Electronically Signed by Comment 01/12/2017 8:11 PM CDT [facility] ([facility]) Comment:Ann Santos MD, Pa thologist Comment . 01/12/2017 8:11 PM CDT [facility] Pathologist Provided ICD10 Comment 01/12/2017 8:11 PM CDT [facility] ([facility]) Comment:R87.610 Note Comment 01/12/2017 8:11 PM CDT [facility] Comment: The Pap smear is a screening test designed to aid in the detection of premalignant and malignant conditions of the uterine cervix. It is not a diagnostic procedure and should not be used as the sole means of detecting cervical cancer. Both false-positive and false-negative reports do occur. Note Comment 01/12/2017 8:11 PM CDT [facility] ([facility]) Comment:See below for HPV te sting results. Pathology/Cytolo gy PART OF UTERINE CERVIX / Unknown Collection / Unknown 12/29/2016 10:29 AM CDT 12/29/2016 10:43 AM CDT Narrative [facility] ([facility]) - 01/12/2017 8:11 PM CDT Performed at: [address] [place] [id number] Marking Room Supervisor: Joy Pyle MD, Phone: [phone] Specimen Comment: Source.............Cervix Specimen Comment: LMP / Prev Treat...None Specimen Comment: No. of containers..01 ThinPrep Vial Lisa Contreras MD LAB - PATHOLOGY/CYTO LOGY ORDERABLES [facility] ([facility]) [address] [place] [address] * HPV DNA PROBE HIGH RISK (12/29/2016 10:29 AM CDT) Human papillomavirus High Risk Negative Negative 01/12/2017 8:11 PM CDT [facility] Comment: This high-risk HPV test detects thirteen high-risk types (16/18/31/33/35/39/45/51/52/56/58/59/68) without differentiation. Pathology/Cytolo gy PART OF UTERINE CERVIX / Unknown Collection / Unknown 12/29/2016 10:29 AM CDT 12/29/2016 10:43 AM CDT Narrative [facility] ([facility]) - 01/12/2017 8:11 PM CDT Performed at: [address] [id number] Marking Room Supervisor: Joy Pyle MD, Phone: [phone] Lisa Contreras MD LAB - MICROBIOLOGY O NORMA [facility] ([facility]) [address] [place] [address] * PATHOLOGY/GENETICS HISTORICAL-ONBASE (12/29/2016) 12/29/2016 Historical Provider LAB - CHEMISTRY O [facility]MA [facility] [address] [place] [address], [facility] * (ABNORMAL) CBC W AUTO DIFFERENTIAL (12/24/2015 1:44 PM CDT) Only the most recent of7 resultswithin the time period is included. WBC 3.0(L) 4.4 - 10.7 x10E9/L 12/24/2015 2:00 PM CDT [facility] WBC Corrected x10E9/L 12/24/2015 2:00 PM CDT [facility] RBC 4.38 3.80 - 5.20 x10E12/L 12/24/2015 2:00 PM CDT [facility] Hemoglobin 12.3 12.0 - 15.6 gm/dL 12/24/2015 2:00 PM CDT [facility] Hematocrit 38.6 35.9 - 45.5 % 12/24/2015 2:00 PM CDT [facility] MCV 88.1 80.7 - 98.3 fl 12/24/2015 2:00 PM CDT [facility] MCH 28.1 26.7 - 34.0 pg 12/24/2015 2:00 PM CDT [facility] MCHC 31.9 30.8 - 35.9 gm/dL 12/24/2015 2:00 PM CDT [facility] Platelet Count 149(L) 153 - 416 x10E9/L 12/24/2015 2:00 PM CDT [facility] RDW-CV 13.0 12.1 - 14.9 % 12/24/2015 2:00 PM T [facility] MPV 10.8 9.4 - 12.9 fl 12/24/2015 2:00 PM T [facility] Neutrophils % 37.4(L) 44.0 - 73.0 % 12/24/2015 2:00 PM T [facility] Lymphocytes % 48.5(H) 20.0 - 43.0 % 12/24/2015 2:00 PM T [facility] Monocytes % 5.4 5.0 - 13.0 % 12/24/2015 2:00 PM T [facility] Eosinophils % 8.1(H) 0.0 - 6.0 % 12/24/2015 2:00 PM [facility] Basophils % 0.3 0.0 - 2.0 % 12/24/2015 2:00 PM [facility] Immature Granulocytes 0.3 0 - 1 % 12/24/2015 2:00 PM [facility] Neutrophil Absolute 1.11(L) 2.01 - 7.14 x10E9/L 12/24/2015 2:00 PM T [facility] Lymphocytes Absolute 1.44 1.07 - 3.94 x10E9/L 12/24/2015 2:00 PM T [facility] Monocytes Absolute 0.16(L) 0.26 - 1.07 x10E9/L 12/24/2015 2:00 PM T [facility] Eosinophils Absolute 0.24 0 - 0.47 x10E9/L 12/24/2015 2:00 PM [facility] Basophils Absolute 0.01 0 - 0.08 x10E9/L 12/24/2015 2:00 PM [facility] Immature Granulocytes Absolute 0.01 0.00 - 0.06 x10E9/L 12/24/2015 2:00 PM [facility] nRBC Auto 0 /100 WBC 12/24/2015 2:00 PM [facility] Blood BLOOD SPECIMEN / Unknown Venipuncture / Unknown 12/24/2015 1:44 PM CDT 12/24/2015 1:52 PM CDT Ekaterina Joseph WAREHOUSE SUPERVISOR 3RD SHIFT-SLIDE FASTENER REPAIRER LAB - HEMATOLO GY ORDERABLES Performing Organization Address [facility]/ZIP Co de Phone Number [facility] [address] [place] [address] * HCG URINE QUALITATIVE - POINT OF CARE (IP) (12/24/2015 1:29 PM CDT) HCG Qual Urine Negative Negative [facility] POCT TESTING QC Verified Yes Yes [facility] POC T TESTING Urine specimen (specimen) URINE / Unknown 12/24/2015 1:29 PM CDT Roula Moses WAREHOUSE SUPERVISOR 3RD SHIFT-SLIDE FASTENER REPAIRER LAB - POINT OF CA RE ORDERABLES Performing Organization Address [facility] Co de Phone Number [facility] POCT TESTING [address] [place] [address] * LAB RESULTS ORDER (11/18/2015 10:36 PM CDT) Narrative 11/18/2015 10:36 PM CDT Ordered by an unspecified provider. Scanned Document LAB - THERAPEUTIC DR UG MONITORING ORDERABLES * IMAGING/RADIOLOGY/XRAY RESULTS ORDER (11/18/2015 8:48 PM CDT) Anatomical Region Laterality Modality Other Narrative 11/18/2015 8:48 PM CDT Ordered by an unspecified provider. Scanned Document IMAGING * GENTAMICIN LEVEL RANDOM (11/14/2015 12:24 AM CDT) Gentamicin Random 2.7 ug/mL 11/14/2015 1:14 AM CDT [facility] Blood BLOOD SPECIMEN / Unknown Venipuncture / Unknown 11/14/2015 12:24 AM CDT 11/14/2015 1:02 AM CDT Shanice Sepulveda MD LAB - CHEMISTRY O RDERABLES Performing Organization Address City/[facility]/ZIP Co de Phone Number [facility] [address] [place] [address] * CROSSMATCH RBC (11/13/2015 6:45 AM CDT) Only the most recent of2 resultswithin the time period is included. Pathologist [facility] Unit Donor # [id number] 11/15/2015 7:02 AM CDT [facility] Product Code E0336 11/15/2015 7:02 AM CDT [facility] Unit Description E0336 RBC, LR, CPD>AS1 11/15/2015 7:02 AM CDT [facility] ABO Donor Type A 11/15/2015 7:02 AM CDT [facility] Rh Type Unit POS 11/15/2015 7:02 AM CDT [facility] Crossmatch Interpretation Compatible 11/15/2015 7:02 AM T [facility] Unit Status Returned 11/15/2015 7:02 AM T [facility] Miscellaneous samples (specimen) BLOOD SPECIMEN / Unknown Venipuncture / Unknown 11/13/2015 6:45 AM CDT 11/13/2015 6:50 AM CDT Carlos Pina MD LAB - BLOOD BANK OR DERABLES [facility] [address] * (ABNORMAL) BLOOD GASES CORD GALINDO (ISTAT) (11/13/2015 6:26 AM CDT) [facility] pH Cord Venous POCT 7.26(L) 7.28 - 7.40 pH 11/13/2015 6:33 AM T [facility] pCO2 Cord Venous POCT 46(H) 35 - 45 mmHg 11/13/2015 6:33 AM [facility] pO2 Cord Venous POCT 21(L) 22 - 33 mmHg 11/13/2015 6:33 AM T [facility] HCO3 Cord Arterial POCT 21(L) 22 - 24 mmol/L 11/13/2015 6:33 AM [facility] BE Cord Venous POCT Calc -6 -6 - 2 mmol/L 11/13/2015 6:33 AM [facility] TCO2 Cord Venous POCT 22 22 - 30 mmol/L 11/13/2015 6:33 AM [facility] O2 Saturation % Cord Venous Calc POCT 28 % 11/13/2015 6:33 AM CDT [facility] Site CORD GALINDO 11/13/2015 6:33 AM CDT [facility] Sample iSTAT CORD V 11/13/2015 6:33 AM CDT [facility] Blood CORD BLOOD SPECIMEN / Unknown 11/13/2015 6:26 AM CDT 11/13/2015 6:33 AM CDT Shanice Sepulveda MD LAB - POINT OF CA RE ORDERABLES Performing Organization Address [facility] Co de Phone Number [facility] [address] [place] [address] * (ABNORMAL) BLOOD GASES CORD ART (ISTAT) (11/13/2015 6:22 AM CDT) pH Cord Arterial POCT 7.17(L) 7.20 - 7.34 pH 11/13/2015 6:33 AM [facility] pCO2 Cord Arterial POCT 61.5(H) 45 - 55 mmHg 11/13/2015 6:33 AM T [facility] pO2 Cord Arterial POCT <5(LL) 12 - 25 mmHg 11/13/2015 6:33 AM T [facility] HCO3 Cord Arterial POCT 22.5 15 - 29 mmol/L 11/13/2015 6:33 AM T [facility] BE Cord Arterial POCT -7(L) -2.9 - 8.3 mmol/L 11/13/2015 6:33 AM T [facility] TCO2 Cord Arterial POCT 24 mmol/L 11/13/2015 6:33 AM T [facility] O2 Saturation Cord Art % Calc POCT % 11/13/2015 6:33 AM CDT [facility] Site CORD ART 11/13/2015 6:33 AM CDT [facility] Sample iSTAT CORD A 11/13/2015 6:33 AM T [facility] Blood CORD BLOOD SPECIMEN / Unknown 11/13/2015 6:22 AM CDT 11/13/2015 6:33 AM CDT Shanice Sepulveda MD LAB - POINT OF CA RE ORDERABLES [facility] [address] [place] [phone] * NEURAXIAL BLOCK (11/12/2015 2:50 PM CDT) Narrative Deon Escalante APRN-CRNA - 11/12/2015 2:50 PM CDT Deon Escalante APRN-CRNA 11/12/2015 2:50 PM NEURAXIAL BLOCK Patient Location: OB Pre Procedure Indication: labor analgesia Anticoagulation /Antithrombosis Status Confirmed: Yes Preanesthetic Checklist: patient identified, IV checked, site marked, risks and benefits discussed, surgical consent verified, monitors and equipment checked, pre-op evaluation done, timeout performed, informed consent obtained and questions answered / anesthesia plan accepted Monitors: BP and Pulse Ox Patient Condition: awake Patient Position: sitting Procedure Block Performed: epidural Prep: Betadine Sterile Field: mask, cap/hat, sterile field established and sterile gloves Approach: midline Skin Numbed with: lidocaine 1% Epidural Needle Type: Tuohy Needle Gauge: 18 Needle Length: 3.5 in Placement Site: L3-L4 Number of Attempts: 1 Loss of ResistanceTechnique: air Loss of Resistance: 9 cm Catheter Length at Skin: 15 cm CSF Aspirated from Catheter: negative Blood Aspirated from Catheter: negative Test Dose: lidocaine 1.5% with 1 200 k epinephrine 3 ml at 11/12/2015 2:41 PM Test Dose Response: negative Local Anesthetic: ropivacaine 0.2% 10 ml Events CSF return negative injection not painful no paresthesia Degree of Difficulty: none Position Post Procedure: left uterine displacement Vital signs monitored and stable throughout. See Anesthesia Intraop record for details. Block Start Time: 11/12/2015 2:37 PM Block End Time: 11/12/2015 2:41 PM Block Performed by: Joshua Escalante CRNA Shanice Sepulveda MD GENERAL ANESTHESI A ORDERABLES * TYPE + SCREEN PANEL (11/11/2015 10:03 PM CDT) ABO A 11/11/2015 11:24 PM CDT [facility] Rh Type Positive 11/11/2015 11:24 PM CDT [facility] Comment:History check perfor med. Retype required. Antibody Screen Negative 11/11/2015 11:24 PM CDT [facility] Miscellaneous samples (specimen) BLOOD SPECIMEN / Unknown Venipuncture / Unknown 11/11/2015 10:03 PM CDT 11/11/2015 10:41 PM CDT Elzbieta Momin MD LAB - BLOOD BANK ORD ERABLES Performing Organization Address [facility] Co de Phone Number [facility] [address] [place] [address] * GLUCOSE PROTEIN KETONE URINE - POINT OF CAR (11/06/2015 8:38 AM CDT) Only the most recent of10 resultswithin the time period is included. Glucose UA neg Negative [facility] POCT TESTING Protein UA neg Negative [facility] POCT TESTING Ketone UA neg Negative [facility] POCT TESTING QC Verified Yes Yes [facility] POC T TESTING Urine specimen (specimen) URINE / Unknown 11/06/2015 8:38 AM CDT Judson Cole MD LAB - POINT OF CARE ORDERABLES Performing Organization Address [facility] Co de Phone Number [facility] POCT TESTING [address] [place] [address] * (ABNORMAL) PLATELET COUNT AUTO (10/23/2015 9:19 AM CDT) Platelet Count 109(L) 153 - 416 x10E9/L 10/23/2015 9:29 AM CDT [facility] Blood BLOOD SPECIMEN / Unknown Venipuncture / Unknown 10/23/2015 9:19 AM CDT 10/23/2015 9:25 AM CDT Elzbieta Momin MD LAB - HEMATOLOGY ORD ERABLES Performing Organization Address City/[facility]/ZIP Co de Phone Number [facility] [address] [place] [address] * CULTURE STREP B (10/09/2015 9:00 AM CDT) Culture Negative for Beta Hemolytic Streptococcus Group B TAHIRA 10/12/2015 9:05 AM CDT [facility] Microbiology MISCELLANEOUS SAMPLES / Unknown Collection / Unknown 10/09/2015 9:00 AM CDT 10/09/2015 9:04 AM CDT Katelynn Alvarado MD LAB - MICROBIOLOGY O RDERABLES Performing Organization Address City/[facility]/ZIP Co de Phone Number [facility] [address] [phone] * GLUCOSE CHALLENGE (08/07/2015 9:19 AM CDT) [facility] Glucose Challenge 77 64 - 140 mg/dL 08/07/2015 10:33 AM CDT [facility] Glucose Challenge Time 08/07/2015 10:33 AM CDT [facility] Blood BLOOD SPECIMEN / Unknown Venipuncture / Unknown 08/07/2015 9:19 AM CDT 08/07/2015 9:55 AM CDT Michelle Bingham MD LAB - CHEMISTRY HUGO JENKINS Performing Organization Address City/[facility] Co de Phone Number [facility] [address] [place] [address] * SONOGRAM - COMPLETE (08/07/2015 8:47 AM CDT) Only the most recent of3 resultswithin the time period is included. Anatomical Region Laterality Modality Other 08/07/2015 8:47 AM CDT Narrative 08/07/2015 10:52 AM CDT [facility] PHONE: FAX: Pat. Name: PAULINE GALLEGO Pat. No: [id number] Study Date: 08/07/2015 8:47am , Age: 09 1995, 20 Pregnancies: 1 Height: 67 in Weight: 220 lb LMP: 01/21/2015 GA by LMP: 28w2d GA by 1st: 27w2d GA by US: 26w6d GA Selected: 27w2d (From First S) DAMIÁN: 11/04/2015 Referring MD: [facility] Worker: Saima Santiago RDMS/LIVE CPT4: 13798 BMI: 34.45 Hist/Ind: Small for gestational age MEASUREMENTS & AGE GROWTH EVALUATION Measurement GA Range Srce %for GA Ratios ----- ---- ------- BPD 6.7 cm 27w0d (92f9c-94j7m) Hadl BPD 45% FL/BPD 0.77 (0.71 - 0.87) HC 24.6 cm 26w5d (90f4h-72o5l) Hadl HC 37% FL/AC 0.24 (0.20 - 0.24) AC 21.9 cm 26w3d (67g5q-10o8a) Hadl AC 31% HC/AC 1.12 (1.00 - 1.18) FL 5.2 cm 27w4d (12t9h-47h3p) Hadl FL 55% CI 0.76 (0.70 - 0.86) HL 4.5 cm 26w6d (01b1v-52f1p) Adi HL 42% GA for sonogram 26w6d (20f0d-45w0x) Weight Estimate: based on (BPD,HC,AC,FL) Avg Weight: 990 gm (846-1135) [place]lock : 2lbs, 2oz Normal: 1099 gm (824-1374) Hadloc Wt% 31% for 27w2d Heart Rate: 138 bpm Amniotic Fluid Index: 14.9cm (09.5-22.7) Q1: 5.2cm Q2: 5.4cm Q3: 1.6cm Q4: 2.7cm CLINICAL SUMMARY Study Number: 3 A single fetus is identified in cephalic presentation. The measurements today are consistent with appropriate growth compared to previous examination. The DAMIÁN selected is based on a prior ultrasound examination. The amniotic fluid volume is within normal limits. The placenta is anterior. No major malformations are seen. The patient was advised that ultrasound does not allow detection of all structural or chromosomal abnormalities. IMPRESSION: Single, live, IUP 27w2d No anomalies identified Appropriate interval growth q Normal fluid assessment RECOMMEND: Follow up ultrasound as clinically indicated Thank you for allowing us the opportunity to care for your patient. Larry Bennett MD <Electronic Signature> 08/07/2015 10:48am Ronaldo Truong MD [facility] ORDERABLES Care Teams Internet Consultant Relationship Specialty Start Date End Date Quin Winter [facility] PCP - General 11/12/22
--- OUTSIDE RECORDS SUMMARY | 2024-06-15 14:08 | XMS_ITS | Clinical Summary ---
Author Organization [facility] Address [address] [place] [phone] Care Team Providers Care Hand Driller Name Role Phone No, Physician Primary Care Provider [phone] Allergies Active Allergy Reactions Criticality Noted Date Comments Amoxicillin-Pot Clavulanate Vomiting Low 05/26/2018 Clavulanic Acid Stomach upset Low 05/18/2018 Stomach/GI Upset Iron Dextran Other (See comments) Medium 11/06/2021 Itchy throat and rigors Medications ergocalciferol (VITAMIN D) 50,000 unit capsuleIndicati ons:Vitamin D Deficiency Take 1 capsule (50,000 Units total) by mouth every 30 (thirty) days 12 capsule 03/17/2024 Active ergocalciferol (VITAMIN D) 50,000 unit capsuleIndicati ons:Vitamin D Deficiency Take 1 capsule (50,000 Units total) by mouth once a week 4 capsule 02/16/2024 Active Active Problems Problem Noted Date Diagnosed Date Iron deficiency anemia 07/16/2021 Arrest of descent, delivered, current hospitaliz ation 07/10/2018 S/P 07/10/2018 Morbid obesity due to excess calories 05/26/2018 Overview (05/26/2018): Added automatically from request for surgery [id number] 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[facility]/HCC) 6 Overview (07/10/2018): Overview: Platelets 132 on 08/07/15 112 at 36w 109 on 10/22 Repeat on 11/05 105k Will treat if below 100k Resolved Problems Problem Noted Date Diagnosed Date Resolved Date Encounter for supervision of normal first in third trimester 07/10/2018 12/16/2018 Overview (07/10/2018): Overview: 19 wk scan A+/I/-/- NR GCT 77 GBS neg Pap: negative cytology and HPV 05/06/13 Morbid obesity 05/26/2018 10/09/2018 Encounters Date Type Department Care Team Description 05/31/2024 12:15 PM SIX PACK PACKER [facility] [address] [place] [address] Iron deficiency anemia, unspecified iron deficiency anemia type (Primary Dx) 05/18/2024 Telephone [facility]ology [address] [place] [phone] Shanon Ortiz RN 05/18/2024 Orders Only [facility]ology [address] [place] [phone] Shanon Ortiz RN Iron deficiency anemia, unspecified iron deficiency anemia type (Primary Dx) 05/16/2024 Orders Only [facility] [address] [place] [phone] Nasra Anguiano Iron deficiency anemia, unspecified iron deficiency anemia type (Primary Dx) 03/17/2024 Orders Only [facility]ology [address] [place] [phone] Shanon Ortiz RN Iron deficiency anemia, unspecified iron deficiency anemia type (Primary Dx) from Last 3 Months Immunizations Name Administration Dates Next Due DTP 07/20/1994, 4,1993,03/25 DTaP 08/19/1998 HPV, Quadrivalent 04/10/2009 Hep A, Pediatric 12/30/2000 Hep A, Unspecified 09/27/2007 Hep B, Adolescent or Pediatric 09/27/2007 Hep B, Unspecified 11/28/2007 HiB 1993,1993,1993 Influenza, Quadrivalent, Spl it, Preservative Free, Intramuscular 04/11/2019,04/06/2018,06/11/2015 Influenza, Unspecified 02/01/2020 MMR 08/19/1998,02/11/1994 Meningococcal MCV4P (Menactra) 04/10/2009 OPV 08/19/1998, 5,1993,05/12,1993 Pfizer SARS-CoV-2 Monovalent Vaccination (12+ Yrs) PURPLE 09/19/2020,08/28/2020 Tdap 08/07/2015,04/10/2009,09/27/2007 Varicella 04/10/2009 Surgical History Surgery Date Site/Laterality Comments SECTION 05/03/2015 - 05/02/2016 HYMENECTOMY 05/03/2010 - 05/02/2011 INTRAUTERINE DEVICE INSERTION removal SLEEVE GASTROPLASTY Medical History Medical History Date Comments Obesity Family History Medical History Relation Name Comments overweight Brother Hypertension Father morbid obesity Father Thyroid cancer Mother overweight Mother overweight Sister Relation Name Status Comments Brother Father Mother Sister Social History Tobacco Use Types Packs/Day Years Used Date Smoking Tobacco: Unknown Hookah Passive Smoke Exposure: Never Smokeless Tobacco: Never Tobacco Cessation:Counseling Given: Not Answered Comments:Socially - 1-2 times in a year Alcohol Use Standard Drinks/Week Comments No 0 (1 standard drink = 0.6 oz pur e alcohol) AUDIT-C Answer Date Recorded Q1: How often do you have a drink containing alc ohol? Monthly or less 01/21/2023 Average Number of Drinks Not on file 023 Frequency of Binge Drinking Not on file 01/02 Comments No Sex and Gender Information Value Date Recorded Sex Assigned at Not on file Legal Sex Female 11:25 AM SIX PACK PACKER Gender Identity Not on file Sexual Orientation Not on file Obstetrics History Para Term AB IAB SAB Ectopic Multiple Livin g Live Births 1 Date Outcome GA Total Labor Labor/2nd/3rd Weight Sex Type Anes PTL Clau A1 A5 Name Clin Last Filed Vital Signs Vital Sign Reading Time Taken Comments Blood Pressure 103/68 05/31/2024 3:00 PM SIX PACK PACKER Pulse 93 05/31/2024 3:00 PM SIX PACK PACKER Temperature 37 C (98.6 F) 05/31/2024 3:00 PM SIX PACK PACKER Respiratory Rate 16 05/31/2024 3:00 PM SIX PACK PACKER Oxygen Saturation 100% 05/31/2024 3:00 PM SIX PACK PACKER Inhaled Oxygen Concentration - - Weight 97.4 kg (214 lb 12.8 oz) 025 12:18 PM SIX PACK PACKER Height 170.2 cm (5' 7 ) 02/15/2024 9:39 AM CDT Body Mass Index 33.64 02/15/2024 9:39 AM CDT Plan of Treatment Health Maintenance Due Date Last Done Comments Depression Screening 1995 Hepatitis C Screening 1995 HPV Vaccines (2 - 3-dose series) 05/08/2009 04/10/2009 Varicella Vaccines (2 of 2 - 13+ 2-dose series) 05/08/2009 04/10/2009 Regular Well Visit/Exam 18-64 2011 Cervical Cancer Screening 12/18/2020 12/19/2019 Covid-19 Vaccine ( season) 2024 05/07/2021, 09/19/2020, 08/28/2020 Influenza Vaccine (#1) 2024 , 04/11/2019, 04/06/2018, Additional history exists DTaP/Tdap/Td Vaccine (9 - Td or Tdap) 08/06/2025 08/07/2015, 04/10/2009, 09/27/2007, Additional history exists Pneumococcal vaccine <65 Aged Out No longer eligible based on patient's age to complete this topic Procedures Procedure Name Priority Date/Time Associated Diagnosis Comments IRON PROFILE W/ IBC Routine 05/17/2024 3:04 PM SIX PACK PACKER Iron deficiency anemia, unspecified iron deficiency anemia type RETICULOCYTES Routine 05/17/2024 3:04 PM SIX PACK PACKER Iron deficiency anemia, unspecified iron deficiency anemia type FERRITIN Routine 05/17/2024 3:04 PM SIX PACK PACKER Iron deficiency anemia, unspecified iron deficiency anemia type CBC WITH AUTO DIFFERENTIAL Routine 05/17/2024 3:04 PM SIX PACK PACKER Iron deficiency anemia, unspecified iron deficiency anemia type RETICULOCYTES Routine 03/16/2024 9:15 AM SIX PACK PACKER Iron deficiency anemia, unspecified iron deficiency anemia type IRON PROFILE W/ IBC Routine 03/16/2024 9 :15 AM SIX PACK PACKER Iron deficiency anemia, unspecified iron deficiency anemia type FERRITIN Routine 03/16/2024 9:15 AM SIX PACK PACKER Iron deficiency anemia, unspecified iron deficiency anemia type CBC WITH AUTO DIFFERENTIAL Routine 03/16/2024 9:15 AM SIX PACK PACKER Iron deficiency anemia, unspecified iron deficiency anemia type PAP ONLY Routine 12/19/2019 12:00 PM CDT from Last 3 Months or Most Recently Relevant to Health Maintenance Results * (ABNORMAL) Iron profile w/ IBC (05/17/2024 3:04 PM SIX PACK PACKER) Iron 22(L) 40 - 190 mcg/dL [facility] TIBC 370 250 - 450 mcg/dL (calc) [facility] Iron saturation 6(L) 16 - 45 % (calc) [facility] Blood 05/17/2024 3:04 PM SIX PACK PACKER 05/17/2024 3:04 PM SIX PACK PACKER us Lisa Eagle PULMONOLOGY PHYSICIAN LAB BLOOD ORDERABLES F inal Result [facility] [address] [place] [address] * (ABNORMAL) CBC with auto differential (05/17/2024 3:04 PM SIX PACK PACKER) WBC 4.3 3.8 - 10.8 Thousand/u L [facility] RBC, POC 4.14 3.80 - 5.10 Million/uL [facility] Hgb 11.1(L) 11.7 - 15.5 g/dL [facility] Hct 35.5 35.0 - 45.0 % [facility] MCV 85.7 80.0 - 100.0 fL [facility] MCH 26.8(L) 27.0 - 33.0 pg [facility] MCHC 31.3(L) 32.0 - 36.0 g/dL [facility] Comment: For adults, a slight decrease in the calculated MCHC value (in the range of 30 to 32 g/dL) is most likely not clinically significant; however, it should be interpreted with caution in correlation with other red cell parameters and the patient's clinical condition. Rdw 15.7(H) 11.0 - 15.0 % [facility] Platelets 263 140 - 400 Thousand/u L [facility] MPV 10.5 7.5 - 12.5 fL [facility] Neutrophils, abs 2,335 1,500 - 7,800 cells/uL [facility] Lymphocytes, abs 1,595 850 - 3,900 cells/uL [facility] Monocyte abs 228 200 - 950 cells/uL [facility] Eosinophils, abs 120 15 - 500 cells/uL [facility] Basophils, abs 22 0 - 200 cells/uL [facility] Neutrophils 54.3 % [facility] Lymphocyte pct 37.1 % [facility] Monocytes 5.3 % [facility] Eosinophils 2.8 % [facility] Basophils 0.5 % [facility] Blood 05/17/2024 3:04 PM SIX PACK PACKER 05/17/2024 3:04 PM SIX PACK PACKER us Lisa Eagle PULMONOLOGY PHYSICIAN LAB BLOOD ORDERABLES F inal Result [facility] [address] [address] [phone] * Reticulocyte Count (05/17/2024 3:04 PM SIX PACK PACKER) Pathologist [facility] Reticulocyte count, automated 0.9 % [facility] Reticulocyte, absolute 37,260 20,000 - 80,000 cells/uL [facility] Blood 05/17/2024 3:04 PM SIX PACK PACKER 05/17/2024 3:04 PM SIX PACK PACKER Lisa Eagle PULMONOLOGY PHYSICIAN LAB BLOOD ORDERABLES F inal Result Performing Organization Address [facility]/ZIP Co de Phone Number [facility] [address] [place] [address] * (ABNORMAL) Ferritin (05/17/2024 3:04 PM SIX PACK PACKER) Pathologist [facility] Ferritin 8(L) 16 - 154 ng/mL [facility] Comment: Your request to have a duplicate copy faxed has been acknowledged. Queued to: [id number] Blood 05/17/2024 3:04 PM SIX PACK PACKER 05/17/2024 3:04 PM SIX PACK PACKER Lisa Eagle NP LAB BLOOD ORDERABLES F inal Result Performing Organization Address [facility] de Phone Number [facility] [address] [place] [address] * Iron profile w/ IBC (03/16/2024 9:15 AM SIX PACK PACKER) [facility] Iron Bind.Cap.(TIBC) 321 250 - 450 ug/dL [facility] - 01 UIBC 238 131 - 425 ug/dL [facility] - 01 Iron 83 27 - 159 ug/dL [facility] - 01 Iron saturation 26 15 - 55 % [facility] - 01 Blood 03/16/2024 9:15 AM SIX PACK PACKER 03/16/2024 Narrative [facility] - 03/17/2024 8:21 AM SIX PACK PACKER Performed at: 01 - [facility] [id number] Almond Grinder: Inocente James PhD, Phone: [phone] Fabienne Baker MD LAB BLOOD ORDERABLES Final Resul t Performing Organization Address City/[facility]/ZIP Co de Phone Number [facility] - 01 * (ABNORMAL) CBC with auto differential (03/16/2024 9:15 AM SIX PACK PACKER) [facility] WBC 2.4(LL) 3.4 - 10.8 x10E3/uL [facility] - 01 RBC 4.78 3.77 - 5.28 x10E6/uL [facility] - 01 Hgb 11.7 11.1 - 15.9 g/dL [facility] - 01 Hct 38.7 34.0 - 46.6 % [facility] - 01 MCV 81 79 - 97 fL [facility] - 01 MCH 24.5(L) 26.6 - 33.0 pg [facility] - 01 MCHC 30.2(L) 31.5 - 35.7 g/dL [facility] - 01 Rdw 21.9(H) 11.7 - 15.4 % [facility] - 01 Platelets 231 150 - 450 x10E3/uL [facility] - 01 Neutrophils pct 49 Not Estab. % [facility] - 01 Lymphs pct 38 Not Estab. % [facility] - 01 Monocytes pct 8 Not Estab. % [facility] - 01 Eosinophils pct 4 Not Estab. % [facility] - 01 Basophil pct 1 Not Estab. % [facility] - 01 Neutrophil abs 1.2(L) 1.4 - 7.0 x10E3/uL [facility] - 01 Lymphs (Absolute) 0.9 0.7 - 3.1 x10E3/uL [facility] - 01 Monocyte abs 0.2 0.1 - 0.9 x10E3/uL [facility] - 01 Eosinophils, abs 0.1 0.0 - 0.4 x10E3/uL [facility] - 01 Basophils, abs 0.0 0.0 - 0.2 x10E3/uL [facility] - 01 Immature Granulocytes 0 Not Estab. % [facility] - 01 Immature Grans (Abs) 0.0 0.0 - 0.1 x10E3/uL [facility] - 01 Blood 03/16/2024 9:15 AM SIX PACK PACKER 03/16/2024 Narrative [facility] - 03/17/2024 7:13 AM SIX PACK PACKER Performed at: [address] [place] [id number] Almond Grinder: Inocente James PhD, Phone: [phone] Fabienne Baker MD LAB BLOOD ORDERABLES Final Resul t Performing Organization Address [facility] de Phone Number [facility] - 01 * Reticulocyte Count (03/16/2024 9:15 AM SIX PACK PACKER) Reticulocyte Count 0.9 0.6 - 2.6 % [facility] - 01 Blood 03/16/2024 9:15 AM SIX PACK PACKER 03/16/2024 Narrative [facility] - 03/17/2024 7:13 AM SIX PACK PACKER Performed at: [address] [place] [id number] Almond Grinder: Inocente James PhD, Phone: [phone] Fabienne Baker MD LAB BLOOD ORDERABLES Final Resul t Performing Organization Address [facility] de Phone Number [facility] - 01 * Ferritin (03/16/2024 9:15 AM SIX PACK PACKER) Ferritin 88 15 - 150 ng/mL [facility] - 01 Blood 03/16/2024 9:15 AM SIX PACK PACKER 03/16/2024 Narrative [facility] - 03/17/2024 8:21 AM SIX PACK PACKER Performed at: [address] [place] [id number] Almond Grinder: Inocente James PhD, Phone: [phone] Faibenne Baker MD LAB BLOOD ORDERABLES Final Resul t Performing Organization Address [facility] Co de Phone Number [facility] - 01 * Pap Only (12/19/2019 12:00 PM CDT) 12/19/2019 12:0 0 PM CDT 12/19/2019 12:41 PM CDT Narrative 12/22/2019 2:30 PM CDT EPIC results best viewed via link to PDF [facility] [place] [address] CYTOPATHOLOGY REPORT FINAL Patient Name: RASTA WARE Gender: F : 1995 (Age: 24) Address: [address] [place] [address] Hospital #: [id number] Service: SAW REPAIRER Location: [facility] Patient Type: [facility] Ref Lab Taken: 12/19/2019 Received: 12/19/2019 Accessioned: 12/20/2019 Reported: 12/22/2019 Physician(s): Mary Faulkner M.D. FINAL INTERPRETATION SOURCE OF SPECIMEN: Liquid based Thin Prep pap STATEMENT OF ADEQUACY: - Satisfactory for evaluation - Endocervical cells/transformation zone sample present GENERAL CATEGORY: - Negative for squamous intraepithelial lesion or malignancy cad/12/22/2019 14:30 Leni Braga M.S.,LUCIANO(ASCP) Report Electronically Reviewed and Signed Out By Leni Braga M.S.,LUCIANO(ASCP) 12/22/2019 14:30:17 Cervicovaginal Cytology (Pap Test) Disclaimer: The Pap test is a screening test used to detect cervical cancer and its precursors; it is not a diagnostic procedure. False negative and false positive results do occur. Pap test results should be interpreted in the context of pertinent clinical information and biopsy results as indicated. Gross Description A. Liquid based Thin Prep pap: Cervical/vaginal - Screening ThinPrep Clinical Diagnosis and History Last Menstrual Period: Not Provided. ICD-9 code Z12.4, Z11.3, N76.0 per requisition. Report Images and scanned documents, if included only viewable in PDF version The performance characteristics of some immunohistochemical stains, in-situ hybridization and fluorescence in-situ hybridization tests and immunophenotyping by flow cytometry cited in this report (if any) were determined by the Surgical Pathology Department at [facility] as part of an ongoing ethanol quality leader program and in compliance with federally mandated regulations drawn from the Clinical Laboratory Improvement Act of 1988 (CLIA '88). Some of these tests rely on the use of analyte specific reagents and are subject to specific labeling requirements by the US Food and Drug Administration. Such diagnostic tests may only be performed in a facility that is certified by the Department of Health and Human Services as a high complexity laboratory under CLIA '88. The FDA has determined that such clearance or approval is not necessary. This test is used for clinical purposes. It should not be regarded as investigational or for research. Nevertheless, federal rules concerning the medical use of analyte specific reagents require that the following disclaimer be attached to the report: This test was developed and its performance characteristics determined by the Surgical Pathology Department of [facility]. It has not been cleared or approved by the U. S. Food and Drug Administration. Mary Faulkner MD LAB CYTOLOGY ORDERABLES Fin al Result from Last 3 Months or Most Recently Relevant to Health Maintenance Insurance [employer] [employer] [employer] Address: [facility] [id number] [place] [address] [facility] [employer] [facility] Advance Directives For more information, please contact: [phone] * Full Code (Latest Code Status on File) Date Activated Date Inactivated Comments 12/16/2018 8:56 PM 12/20/2018 6:08 PM * Full Code Date Activated Date Inactivated Comments 07/06/2018 2:35 PM 07/06/2018 8:21 PM Care Teams Hand Driller Relationship Specialty Start Date End Date No, Physician PCP - General 01/03/20
--- OUTSIDE RECORDS SUMMARY | 2024-06-15 14:08 | XMS_ITS | Clinical Summary ---
Author Organization [facility] Address [address] [place] [address] Care Team Providers Care Air Tube Releaser Name Role Phone Pcp, Quin Mejia Im-Fm Primary Care Provider Unavailable Source Comments [facility],non-owned Affiliates and Associated Physician Practices is amultiple site organization consisting of ambulatory clinics and hospital sitesin [place], [place], [place] and [place]. This disclosure is being madepursuant to the Care Everywhere program and may not contain all information available regarding this patient. Last updated 18.[facility] Allergies Active Allergy Reactions Criticality Noted Date Comments Amoxicillin-Pot Clavulanate Vomiting Low 05/26/19 19 Medications * Be aware that medications may not be up to date on this document. Alwaysverify current medications with the patient. Medication Sig Dispensed Refills Start Date End Date Status Multiple Vitamin (MULTI-VITAMIN DAILY PO) Take 2 Pieces by mouth once daily Active Active Problems Patient Care Coordination No te Formatting of this note migh t be different from the original. NOPP-CC 2015 Problem Noted Date Diagnosed Date Iron deficiency anemia 07/16/2021 Mechanical complication due to intrauterine contraceptive device Resolved Problems Problem Noted Date Diagnosed Date Resolved Date Gestational thrombocytopenia 09/11/2015 03/03/2021 Overview (11/06/2015): Platelets 132 on 08/07/15 112 at 36w 109 on 10/22 Repeat on 11/05 105k Will treat if below 100k IUGR (intrauterine growth restriction) 07/17/2015 09/25/2015 Encounter for supervision of normal first in second trimester 06/11/2015 09/25/2015 Small for gestational age fe tus affecting management of mother 09/25/2015 Encounter for supervision of normal first in third trimester 03/03/2021 Overview (11/28/2015): 19 wk scan A+/I/-/- NR GCT 77 GBS neg Pap: negative cytology and HPV 05/06/13 Post-term , 40-42 weeks of gestation 03/03/2021 Arrest of descent, delivered , current hospitalization 03/03/2021 S/P 03/03/2021 Immunizations Name Administration Dates Next Due Scioderm primary monoval ent 12+ yr 0.3mL Purple cap 09/19/2020 DTP 07/20/1994, 4,1993,03/25 DTaP VACCINE IM (6wk-6yrs) 08/19/1998 HEP A PED/ADULT VACCINE 09/27/2007 HEP A PEDS 2 DOSE 12/30/2000 HEP B VACCINE 11/28/2007 HEP B VACCINE, PED/ADOL 09/27/2007 HIB VACCINE 1993,1993,1993 Human Papilloma Virus Rasheeda valent Vaccine 04/10/2009 INFLUENZA VACCINE 02/01/2020 INFLUENZA VACCINE, QUADR. (F LUZONE; FLULAVAL; FLUARIX; AFLURIA QUADRIVALENT; 6MO+), 0.5 ML (IIV4) 04/11/2019,04/06/2018,06/11/2015 MENINGOCOCCAL CONJUGATE (MCV4P) 04/10/2009 MMR 08/19/1998,02/11/1994 POLIO OPV 08/19/1998, 5,1993,05/12,1993 TDAP (7yrs+) 08/07/2015,04/10/2009,09/27/2007 VARICELLA 04/10/2009 Family History Medical History Relation Name Comments Arthritis - Osteo Father Hyperlipidemia Father Hypertension Maternal Grandmother Thyroid Disease Mother Relation Name Status Comments Brother 1 Alive Brother 2 Alive Father Alive Maternal Grandmother Alive Mother Alive Sister 1 Alive Sister 2 Alive Social History Tobacco Use Types Packs/Day Years [...] Comments Blood Pressure 116/62 03/31/2023 10:18 AM REIMBURSEMENT SPEC Pulse 76 08/24/2022 9:25 AM CDT Temperature 36.6 C (97.8 F) 08/24/2022 8:51 AM CDT Respiratory Rate 16 08/24/2022 8:51 AM CDT Oxygen Saturation 100% 08/24/2022 8:51 AM CDT Inhaled Oxygen Concentration - - Weight 96.1 kg (211 lb 12.8 oz) 023 10:18 AM REIMBURSEMENT SPEC Height 170.2 cm (5' 7 ) 03/31/2023 10:1 8 AM REIMBURSEMENT SPEC Body Mass Index 33.17 03/31/2023 10:18 AM REIMBURSEMENT SPEC Plan of Treatment Health Maintenance Due Date Last Done Comments HEPATITIS B VACCINE (3 of 3 - 3-dose series) 01/23/2008 11/28/2007, 09/27/2007 HPV VACCINE (2 - 3-dose series) 05/08/2009 04/10/2009 COVID-19 VACCINE ( season) 2024 05/07/2021, 09/19/2020, 08/28/2020 INFLUENZA VACCINE (#1) 2024 , 04/11/2019, 04/06/2018, Additional history exists DEPRESSION SCREENING 05/03/2024 08/24/2022, 01/21/20 22 DTAP/TDAP/TD VACCINES (9 - Td or Tdap) 08/06/2025 08/07/2015, 04/10/2009, 09/27/2007, Additional history exists PAP with HPV 03/03/2026 03/03/2021, 12/29/2016 ZOSTER VACCINE (1 of 2) 2043 HIB VACCINE Aged Out 1993, 05/03, 1993 No longer eligible based on patient's age to complete this topic MENINGOCOCCAL VACCINE Completed 04/10/2009 HEPATITIS C SCREENING Completed 01/07/2018 HIV SCREENING Completed 01/07/2018, 08/07/2015 MENINGOCOCCAL (Group B) VACCINE Aged Out No longer eligible based on patient's age to complete this topic PNEUMOCOCCAL VACCINE Aged Out No long er eligible based on patient's age to complete this topic Procedures Procedure Name Priority Date/Time Associated Diagnosis Comments PAP IG LB+HPV APTIMA Routine 03/03/2021 2:01 PM CDT Well woman exam with routine gynecological exam HEPATITIS SCREEN ACUTE Routine 01/07/2018 1:40 PM CDT Healthcare maintenance HIV-1 HIV-2 ANTIBODY + HIV P24 AG PANEL Routine 01/07/2018 1:40 PM CDT Healthcare maintenance from Last 3 Months or Most Recently Relevant to Health Maintenance Results * PAP IG LB+HPV APTIMA (03/03/2021 2:01 PM CDT) Diagnosis Comment 03/07/2021 5:08 AM CDT [facility] ([facility]) Comment:NEGATIVE FOR INTRAEP ITHELIAL LESION OR MALIGNANCY. Specimen Adequacy Comment 5:08 AM CDT [facility] ([facility]) Comment: Satisfactory for evaluation. Endocervical and/or squamous metaplastic cells (endocervical component) are present. Performed by Comment 03/07/2021 5:08 AM CDT [facility] ([facility]) Comment:Yann Miles, Cyto technologist (ASCP) Comment . 03/07/2021 5:08 AM CDT [facility] ([facility]) Note Comment 03/07/2021 5:08 AM CDT [facility] ([facility]) Comment: The Pap smear is a screening test designed to aid in the detection of premalignant and malignant conditions of the uterine cervix. It is not a diagnostic procedure and should not be used as the sole means of detecting cervical cancer. Both false-positive and false-negative reports do occur. IGLBP CPT Code Automation Comment 03/07/2021 5:08 AM CDT [facility] ([facility]) Comment: This liquid based ThinPrep(R) pap test was screened with the use of an image guided system. Human papillomavirus Aptima Negative Negative 03/07/2021 5:08 AM CDT [facility] ([facility]) Comment: This nucleic acid amplification test detects fourteen high-risk HPV types (16,18,31,33,35,39,45,51,52,56,58,59,66,68) without differentiation. Pathology/Cytolo gy PART OF UTERINE CERVIX / Unknown Collection / Unknown 03/03/2021 2:01 PM CDT 03/03/2021 2:14 PM CDT Narrative [facility] ([facility]) - 03/07/2021 5:08 AM CDT Performed at: 01 - [address] [id number] Electronic Gluer: Joy Pyle MD, Phone: [phone] Performed at: 02 - [address] [id number] Electronic Gluer: Joy Pyle MD, Phone: [phone] Specimen Comment: No. of containers..01 ThinPrep Vial Anuradha Kumar MD LAB - PATHOLOGY/CYTO LOGY ORDERABLES Performing Organization Address City/[facility]/ZIP Co de Phone Number [facility] ([facility]) [address] [place] [address] * HIV-1 HIV-2 ANTIBODY + HIV P24 AG PANEL (01/07/2018 1:40 PM CDT) HIV1/2 Ab + P24 Ag Non Reactive Non Reactive 01/07/2018 4:39 PM CDT [facility] Blood BLOOD SPECIMEN / Unknown Venipuncture / Unknown 01/07/2018 1:40 PM CDT 01/07/2018 1:47 PM CDT Narrative [facility] - 01/07/2018 4:39 PM CDT No Laboratory evidence of HIV infection. Terrie Saez MD LAB - CHEMISTRY HUGO JENKINS [facility] [address] [place] [id number] * HEPATITIS SCREEN ACUTE (01/07/2018 1:40 PM CDT) HAV Antibody IgM Non Reactive Non Reactive 01/07/2018 3:12 PM CDT [facility] HBsAg Non Reactive Non Reactive 01/07/2018 3:12 PM CDT [facility] HBc Antibody IgM Non Reactive Non Reactive 01/07/2018 3:12 PM CDT [facility] HCV Antibody Screen Non Reactive Non Reactive 01/07/2018 3:12 PM CDT [facility] HCV S/C Ratio 0.05 0.00 - 0.79 01/07/2018 3:12 PM CDT [facility] Comment: Dtfkpp-yb-igyllf ratio (S/CO) <0.80: Non Reactive Blood BLOOD SPECIMEN / Unknown Venipuncture / Unknown 01/07/2018 1:40 PM CDT 01/07/2018 1:47 PM CDT Narrative [facility] - 01/07/2018 3:12 PM CDT Non Reactive - Antibodies to Hepatitis C virus (HCV) were not detected, result does not exclude early acute HCV infection. Non Reactive - Antibodies to Hepatitis C virus (HCV) were not detected, result does not exclude early acute HCV infection. Terrie Saez MD LAB - CHEMISTRY HUGO JENKINS [facility] Organization Address City/State/ZIP Co de Phone Number [facility] [address] [phone] from Last 3 Months or Most Recently Relevant to Health Maintenance Advance Directives * Full Code (Latest Code Status on File) Date Activated Date Inactivated Comments 11/13/2015 5:38 AM 11/17/2015 2:07 PM * Full Code Date Activated Date Inactivated Comments 11/11/2015 9:48 PM 11/13/2015 5:38 AM Care Teams Air Tube Releaser Relationship Specialty Start Date End Date Quin Winter Russ PCP - General 11/12/22
--- OUTSIDE RECORDS SUMMARY | 2024-06-15 14:08 | XMS_ITS | Encounter Summary ---
Author Organization [facility] Address [address] [place] [address] Phone Care Team Providers Care Tape Recording Machine Operator Name Role Phone No, Physician Primary Care Provider [phone] Miscellaneous, Not In File Primary Care Provider Unavailable No, Physician Primary Care Provider Karen Mosley MD Primary Care Provider [phone] No, Physician Primary Care Provider [phone] Encounter Details Date Type Department Care Team (Late st Contact Info) Description 07/20/2018 Documentation 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 Gender Identity Not on file Sexual Orientation Not on file documented as of this encounter Plan of Treatment Not on file documented as of this encounter Visit Diagnoses Not on filedocumented in this encounter Additional Health Concerns Infection Onset Date Last Indicated Resolved Time COVID: Suspected 02/07/2020 02/07/2020 02/08/2020 1:03 PM CDT COVID19 02/07/2020 02/07/2020 02/21/2020 3:07 AM CDT documented as of this encounter Care Teams Tape Recording Machine Operator Relationship Specialty Start Date End Date No, Physician PCP - General 11/30/17 12/04/18 Miscellaneous, Not In File PCP - General 12/05/18 9 No, Physician PCP - General 12/06/18 07/13/19 Karen Mosley MD [address] [place] [address] DR Francisca SHELTON [address] [place] [id number] PCP - General Internal Medicine 07/14/19 01/02/20 No, Physician PCP - General 01/03/20 documented as of this encounter
--- OUTSIDE RECORDS SUMMARY | 2024-06-15 14:08 | XMS_ITS | Encounter Summary ---
Author Organization [facility] Address [address] [place] [address] Phone Care Team Providers Care Dispersion Mixer Name Role Phone No, Physician Primary Care Provider [phone] Miscellaneous, Not In File Primary Care Provider Unavailable No, Physician Primary Care Provider [phone] Karen Mosley MD Primary Care Provider [phone] No, Physician Primary Care Provider [phone] Encounter Details Date Type Department Care Team (Late st Contact Info) Description 09/01/2018 Telephone [facility] Pain Management [address] [place] [address] Penelope Alan Social History Tobacco Use Types Packs/Day Years Used Date Smoking Tobacco: Never Smokeless Tobacco: Never Alcohol Use Standard Drinks/Week Comments No 0 (1 standard drink = 0.6 oz pur e alcohol) Comments Unknown Sex and Gender Information Value Date Recorded Sex Assigned at Not on file 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
--- OUTSIDE RECORDS SUMMARY | 2024-06-15 14:08 | XMS_ITS | Referral Summary ---
Author Organization [facility] Address [address] [place] [address] Care Team Providers Care Coating And Embossing Unit Operator Name Role Phone Pcp, Quin Mejia Im-Fm Primary Care Provider Unavailable Source Comments [facility],non-owned Affiliates and Associated Physician Practices is amultiple site organization consisting of ambulatory clinics and hospital sitesin [place], [place], [place] and [place]. This disclosure is being madepursuant to the Care Everywhere program and may not contain all information available regarding this patient. Last updated 18.[facility] Allergies Active Allergy Reactions Criticality Noted Date [...] 03/03/2021 Immunizations Name Administration Dates Next Due [employer]ceuticals primary monoval ent 12+ yr 0.3mL Purple [...] 08/19/1998, 5,1993,05/12,1993 TDAP (7yrs+) 08/07/2015,04/10/2009,09/27/2007 VARICELLA 04/10/2009 Social History Tobacco Use Types Packs/Day Years [...] Comments Blood Pressure 116/62 03/31/2023 10:18 AM COMPONENT LAB TECH Pulse 76 08/24/2022 9:25 AM CDT Temperature 36.6 C (97.8 F) 08/24/2022 8:51 AM CDT Respiratory Rate 16 08/24/2022 8:51 AM CDT Oxygen Saturation 100% 08/24/2022 8:51 AM CDT Inhaled Oxygen Concentration - - Weight 96.1 kg (211 lb 12.8 oz) 023 10:18 AM COMPONENT LAB TECH Height 170.2 cm (5' 7 ) 03/31/2023 10:1 8 AM COMPONENT LAB TECH Body Mass Index 33.17 03/31/2023 10:18 AM COMPONENT LAB TECH Functional Status Functional Status Response Date of Assess ment Is person deaf or have serious hearing difficult y? No 11/11/2015 Is person blind or have serious difficulty seein g? No 11/11/2015 Does person have serious dif ficulty walking/climbing stairs? No 11/11/2015 Does person have difficulty dressing/bathing? No 11/11/2015 Does person have difficulty doing errands alone? No 11/11/2015 Cognitive Status Response Date of Assessm ent Does person have difficulty concentrating/remembering/making decisions? No 11/11/2015 Plan of Treatment Not on file Procedures Procedure Name Priority Date/Time Associated Diagnosis [...] Diagnosis Comment 03/07/2021 5:08 AM CDT [facility] ([facility]) Comment:NEGATIVE FOR INTRAEP ITHELIAL LESION OR MALIGNANCY. Specimen Adequacy Comment 021 5:08 AM CDT [facility] ([facility]) Comment: Satisfactory for evaluation. Endocervical and/or squamous metaplastic cells (endocervical component) are present. Performed by Comment 03/07/2021 5:08 AM CDT [facility] ([facility]) Comment:Yann Miles, Cyto technologist (ASCP) Comment . 03/07/2021 5:08 AM CDT [facility] ([facility]) Note Comment 03/07/2021 5:08 AM CDT [facility] ([facility]) Comment: The Pap smear is a screening test designed to aid in the detection of premalignant and malignant conditions of the uterine cervix. It is not a diagnostic procedure and should not be used as the sole means of detecting cervical cancer. Both false-positive and false-negative reports do occur. IGLBP CPT Code Automation Comment 03/07/2021 5:08 AM CDT [facility] ([facility]) Comment: This liquid based ThinPrep(R) pap test was screened with the use of an image guided system. Human papillomavirus Aptima Negative Negative 03/07/2021 5:08 AM CDT [facility] ([facility]) Comment: This nucleic acid amplification test detects fourteen high-risk HPV types (16,18,31,33,35,39,45,51,52,56,58,59,66,68) without differentiation. Pathology/Cytolo gy PART OF UTERINE CERVIX / Unknown Collection / Unknown 03/03/2021 2:01 PM CDT 03/03/2021 2:14 PM CDT Narrative [facility] ([facility]) - 03/07/2021 5:08 AM CDT Performed at: 01 - [address] [id number] Global Engineering Manager: Joy Pyle MD, Phone: [phone] Performed at: 02 - [address] [id number] Global Engineering Manager: Joy Pyle MD, Phone: [phone] Specimen Comment: No. of containers..01 ThinPrep Vial Anuradha Kumar MD LAB - PATHOLOGY/CYTO LOGY ORDERABLES [facility] ([facility]) [address] [place] [address] * HIV-1 HIV-2 ANTIBODY + HIV P24 AG PANEL (01/07/2018 1:40 PM CDT) [facility] HIV1/2 Ab + P24 Ag Non Reactive Non Reactive 01/07/2018 4:39 PM CDT [facility] Blood BLOOD SPECIMEN / Unknown Venipuncture / Unknown 01/07/2018 1:40 PM CDT 01/07/2018 1:47 PM CDT Narrative [facility] - 01/07/2018 4:39 PM CDT No Laboratory evidence of HIV infection. Terrie Saez MD LAB - CHEMISTRY HUGO JENKINS [facility] [address] [place] [id number] * HEPATITIS SCREEN ACUTE (01/07/2018 1:40 PM CDT) [facility] HAV Antibody IgM Non Reactive Non Reactive 01/07/2018 3:12 PM CDT [facility] HBsAg Non Reactive Non Reactive 01/07/2018 3:12 PM CDT [facility] HBc Antibody IgM Non Reactive Non Reactive 01/07/2018 3:12 PM CDT [facility] HCV Antibody Screen Non Reactive Non Reactive 01/07/2018 3:12 PM CDT [facility] HCV S/C Ratio 0.05 0.00 - 0.79 01/07/2018 3:12 PM CDT [facility] Comment: Tnehjy-bz-cketzd ratio (S/CO) <0.80: Non Reactive Blood BLOOD SPECIMEN / Unknown Venipuncture / Unknown 01/07/2018 1:40 PM CDT 01/07/2018 1:47 PM CDT Narrative [facility] - 01/07/2018 3:12 PM CDT Non Reactive - Antibodies to Hepatitis C virus (HCV) were not detected, result does not exclude early acute HCV infection. Non Reactive - Antibodies to Hepatitis C virus (HCV) were not detected, result does not exclude early acute HCV infection. Terrie Saez MD LAB - CHEMISTRY HUGO Benitez Organization Address City/State/ZIP Co de Phone Number [facility] [address] [place], [place] [phone] from Last 3 Months or Most Recently Relevant to Health Maintenance Advance Directives * Full Code (Latest Code Status on File) Date Activated Date Inactivated Comments 11/13/2015 5:38 AM 11/17/2015 2:07 PM * Full Code Date Activated Date Inactivated Comments 11/11/2015 9:48 PM 11/13/2015 5:38 AM Care Teams Coating And Embossing Unit Operator Relationship Specialty Start Date End Date PcpQuin PCP - General 11/12/22
--- OUTSIDE RECORDS SUMMARY | 2024-06-15 14:09 | XMS_ITS | Referral Summary ---
Author Organization [facility] Address [address] [place] [id number] Care Team Providers Care Worm Packer Name Role Phone No, Physician Primary Care Provider [phone] Encounters Date Type Department Care Team Description 05/31/2024 12:15 PM ARCHITECTURAL TECHNOLOGIST [facility] [address] [place] [id number] Iron deficiency anemia, unspecified iron deficiency anemia type (Primary Dx) 05/18/2024 Telephone [facility] [address] [place] [phone] Shanon Ortiz RN 05/18/2024 Orders Only [facility] [address] [place] [phone] Shanon Ortiz RN Iron deficiency anemia, unspecified iron deficiency anemia type (Primary Dx) 05/16/2024 Orders Only [facility] [address] [place] [phone] Nasra Anguiano Iron deficiency anemia, unspecified iron deficiency anemia type (Primary Dx) 03/17/2024 Orders Only [facility] [address] [place] [phone] Shanon Ortiz RN Iron deficiency anemia, unspecified iron deficiency anemia type (Primary Dx) from Last 3 Months Allergies Active Allergy Reactions Criticality Noted Date [...] (05/26/2018): Added automatically from request for surgery [id number] 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[facility]) 6 Overview (07/10/2018): Overview: Platelets 132 on [...] and HPV 05/06/13 Morbid obesity 05/26/2018 10/09/2018 Immunizations Name Administration Dates Next Due DTP [...] Yrs) PURPLE 09/19/2020,08/28/2020 Tdap 08/07/2015,04/10/2009,09/27/2007 Varicella 04/10/2009 Social History Tobacco Use Types Packs/Day [...] on file Legal Sex Female 11:25 AM ARCHITECTURAL TECHNOLOGIST Gender Identity Not on file Sexual Orientation Not on file Last Filed Vital Signs Vital Sign Reading Time Taken Comments Blood Pressure 103/68 05/31/2024 3:00 PM ARCHITECTURAL TECHNOLOGIST Pulse 93 05/31/2024 3:00 PM ARCHITECTURAL TECHNOLOGIST Temperature 37 C (98.6 F) 05/31/2024 3:00 PM ARCHITECTURAL TECHNOLOGIST Respiratory Rate 16 05/31/2024 3:00 PM ARCHITECTURAL TECHNOLOGIST Oxygen Saturation 100% 05/31/2024 3:00 PM ARCHITECTURAL TECHNOLOGIST Inhaled Oxygen Concentration - - Weight 97.4 kg (214 lb 12.8 oz) 025 12:18 PM ARCHITECTURAL TECHNOLOGIST Height 170.2 cm (5' 7 ) 02/15/2024 9:39 AM CDT Body Mass Index 33.64 02/15/2024 9:39 AM CDT Plan of Treatment Not on file Procedures Procedure Name Priority Date/Time Associated Diagnosis Comments IRON PROFILE W/ IBC Routine 05/17/2024 3 :04 PM ARCHITECTURAL TECHNOLOGIST Iron deficiency anemia, unspecified iron deficiency anemia type RETICULOCYTES Routine 05/17/2024 3:04 PM ARCHITECTURAL TECHNOLOGIST Iron deficiency anemia, unspecified iron deficiency anemia type FERRITIN Routine 05/17/2024 3:04 PM ARCHITECTURAL TECHNOLOGIST Iron deficiency anemia, unspecified iron deficiency anemia type CBC WITH AUTO DIFFERENTIAL Routine 05/17/2024 3:04 PM ARCHITECTURAL TECHNOLOGIST Iron deficiency anemia, unspecified iron deficiency anemia type RETICULOCYTES Routine 03/16/2024 9:15 AM ARCHITECTURAL TECHNOLOGIST Iron deficiency anemia, unspecified iron deficiency anemia type IRON PROFILE W/ IBC Routine 03/16/2024 9 :15 AM ARCHITECTURAL TECHNOLOGIST Iron deficiency anemia, unspecified iron deficiency anemia type FERRITIN Routine 03/16/2024 9:15 AM ARCHITECTURAL TECHNOLOGIST Iron deficiency anemia, unspecified iron deficiency anemia type CBC WITH AUTO DIFFERENTIAL Routine 03/16/2024 9:15 AM ARCHITECTURAL TECHNOLOGIST Iron deficiency anemia, unspecified iron deficiency anemia type PAP ONLY Routine 12/19/2019 12:00 PM CDT from Last 3 Months or Most Recently Relevant to Health Maintenance Results * (ABNORMAL) Iron profile w/ IBC (05/17/2024 3:04 PM ARCHITECTURAL TECHNOLOGIST) Iron 22(L) 40 - 190 mcg/dL [facility] TIBC 370 250 - 450 mcg/dL (calc) [facility] Iron saturation 6(L) 16 - 45 % (calc) [facility] Blood 05/17/2024 3:04 PM ARCHITECTURAL TECHNOLOGIST 05/17/2024 3:04 PM ARCHITECTURAL TECHNOLOGIST us Lisa Eagle WHARF LABORER LAB BLOOD ORDERABLES F inal Result [facility] [address] [address] [phone] * (ABNORMAL) CBC with auto differential (05/17/2024 3:04 PM ARCHITECTURAL TECHNOLOGIST) Pathologist [facility] WBC 4.3 3.8 - 10.8 Thousand/u L [...] [facility] Blood 05/17/2024 3:04 PM ARCHITECTURAL TECHNOLOGIST 05/17/2024 3:04 PM ARCHITECTURAL TECHNOLOGIST Lisa Eagle WHARF LABORER LAB BLOOD ORDERABLES F inal Result Performing Organization Address [facility] de Phone Number [facility] [address] [place] [address] * Reticulocyte Count (05/17/2024 3:04 PM ARCHITECTURAL TECHNOLOGIST) [facility] Reticulocyte count, automated 0.9 % [facility] Reticulocyte, absolute 37,260 20,000 - 80,000 cells/uL [facility] Blood 05/17/2024 3:04 PM ARCHITECTURAL TECHNOLOGIST 05/17/2024 3:04 PM ARCHITECTURAL TECHNOLOGIST Lisa Eagle WHARF LABORER LAB BLOOD ORDERABLES F inal Result Performing Organization Address [facility] Phone Number [facility] [address] [place] [address] * (ABNORMAL) Ferritin (05/17/2024 3:04 PM ARCHITECTURAL TECHNOLOGIST) [facility] Ferritin 8(L) 16 - 154 ng/mL [facility] Comment: Your request to have a duplicate copy faxed has been acknowledged. Queued to: [id number] Blood 05/17/2024 3:04 PM ARCHITECTURAL TECHNOLOGIST 05/17/2024 3:04 PM ARCHITECTURAL TECHNOLOGIST Lisa Eagle WHARF LABORER LAB BLOOD ORDERABLES F inal Result Performing Organization Address [facility] de Phone Number [facility] [address] [place] [address] * Iron profile w/ IBC (03/16/2024 9:15 AM ARCHITECTURAL TECHNOLOGIST) [facility] Iron Bind.Cap.(TIBC) 321 250 - 450 ug/dL [facility] - 01 UIBC 238 131 - 425 ug/dL [facility] - 01 Iron 83 27 - 159 ug/dL [facility] - 01 Iron saturation 26 15 - 55 % [facility] - 01 Blood 03/16/2024 9:15 AM ARCHITECTURAL TECHNOLOGIST 03/16/2024 Narrative [facility] - 03/17/2024 8:21 AM ARCHITECTURAL TECHNOLOGIST Performed at: - [address] [id number] Pick Up Worker: Inocente James PhD, Phone: [phone] us Fabienne Baker MD LAB BLOOD ORDERABLES Final Resul t [facility] - 01 * (ABNORMAL) CBC with auto differential (03/16/2024 9:15 AM ARCHITECTURAL TECHNOLOGIST) WBC 2.4(LL) 3.4 - 10.8 x10E3/uL [facility] [...] [facility] - 01 Blood 03/16/2024 9:15 AM ARCHITECTURAL TECHNOLOGIST 03/16/2024 Narrative [facility] - 03/17/2024 7:13 AM ARCHITECTURAL TECHNOLOGIST Performed at: [address] [id number] Pick Up Worker: Inocente James PhD, Phone: [phone] Fabienne Baker MD LAB BLOOD ORDERABLES Final Resul t Performing Organization Address [facility] de Phone Number [facility] - * Reticulocyte Count (03/16/2024 9:15 AM ARCHITECTURAL TECHNOLOGIST) Reticulocyte Count 0.9 0.6 - 2.6 % [facility] - 01 Blood 03/16/2024 9:15 AM ARCHITECTURAL TECHNOLOGIST 03/16/2024 Narrative [facility] - 03/17/2024 7:13 AM ARCHITECTURAL TECHNOLOGIST Performed at: [address] [id number] Pick Up Worker: Inocente James PhD, Phone: [phone] Fabienne Baker MD LAB BLOOD ORDERABLES Final Resul t Performing Organization Address [facility] Co de Phone Number [facility] - * Ferritin (03/16/2024 9:15 AM ARCHITECTURAL TECHNOLOGIST) Ferritin 88 15 - 150 ng/mL [facility] - 01 Blood 03/16/2024 9:15 AM ARCHITECTURAL TECHNOLOGIST 03/16/2024 Narrative [facility] - 03/17/2024 8:21 AM ARCHITECTURAL TECHNOLOGIST Performed at: [address] [place] [id number] Pick Up Worker: Inocente James PhD, Phone: [phone] Fabienne Baker MD LAB BLOOD ORDERABLES Final Resul t [facility] - 01 * Pap Only (12/19/2019 12:00 PM CDT) 12/19/2019 12:0 0 PM CDT 12/19/2019 12:41 PM CDT Narrative 12/22/2019 2:30 PM CDT EPIC results best viewed via link to PDF [facility] [place] [address] CYTOPATHOLOGY REPORT FINAL Patient Name: PAULINE WARE Gender: F : 1995 (Age: 24) Address: [address] [place] [address] Hospital #: [id number] Service: DIRECTOR LEARNING SERVICES Location: [facility] Patient Type: [facility] Ref Lab Taken: 12/19/2019 Received: 12/19/2019 Accessioned: [...] determined by the Surgical Pathology Department at [facility] as part of an ongoing design quality engineer program and in compliance with federally mandated [...] determined by the Surgical Pathology Department of [facility]. It has not been cleared or approved by the U. S. Food and Drug Administration. Mary Faulkner MD LAB CYTOLOGY ORDERABLES Fin al Result from Last 3 Months or Most Recently Relevant to Health Maintenance Insurance [facility] Advance Directives For more information, please contact: [phone] * Full Code (Latest Code Status on File) Date Activated Date Inactivated Comments 12/16/2018 8:56 PM 12/20/2018 6:08 PM * Full Code Date Activated Date Inactivated Comments 07/06/2018 2:35 PM 07/06/2018 8:21 PM Care Teams Worm Packer Relationship Specialty Start Date End Date No, Physician PCP - General 01/03/20
--- OUTSIDE RECORDS SUMMARY | 2024-06-15 14:09 | XMS_ITS | Clinical Summary ---
Author Organization [facility] Address [address] [place] [address] Care Team Providers Care Pediatrics Physician Name Role Phone Unavailable Primary Care Provider Unavailabl e Immunizations Immunization Administration Dates Next Due Covid-19, Mrna, Lnp-s, Pf, 30 Mcg/0.3 Ml Dose (P fizer) 05/07/2021 Social History Tobacco Use Types Packs/Day Years Used Date Smoking Tobacco: Never Assessed Comments Unknown Sex and Gender Information Value Date Recorded Sex Assigned at Not on file Legal Sex Female 12:40 AM CDT Gender Identity Not on file Sexual Orientation Not on file Plan of Treatment Health Maintenance Due Date Last Done Comments Hepatitis C Virus (HCV) Screening 1995 Hepatitis B Immunization (3 of 3 - 3-dose series) 01/23/2008 11/28/2007, 09/27/2007 HPV/Cotest 2023 Influenza Immunization (#1) 2024 10/0 05/2019, 04/11/2019, 04/06/2018, Additional history exists SARS-COV-2 Immunization ( season) 2024 05/07/2021, 09/19/2020 Cervical Cancer Screening (CCS) 03/03/2024 Pap Smear 03/03/2024 03/03/2021 Respiratory Syncytial Virus (RSV) Immunization (Adult) (1 - 1-dose 75+ series) 01/14/2068 Meningococcal Immunization (ACWY) Completed 04/10/2009 DTaP/Tdap/Td Immunization Discontinued 2015, 04/10/2009, 09/27/2007, Additional history exists TdaP Immunization Completed 08/07/2015, , 09/27/2007 Pneumococcal Immunization Combined Aged Out No longer eligible based on patient's age to complete this topic Rotavirus Immunization Aged Out No lo nger eligible based on patient's age to complete this topic
== END 2024-06-15 14:03 | disposition home or self-care (01) ==
PROVIDERS: Visit Provider Obstetrics & Gynecology
DX: N92.0 Excessive and frequent menstruation with regular cycle (principal)
CPT/HCPCS: 76830; 76856

== ENCOUNTER 2024-06-20 08:37 | Emergency (ER) | payer OTHER, SELFPAY ==
--- OUTSIDE RECORDS SUMMARY | 2024-06-20 08:41 | XMS_ITS | Encounter Summary ---
Author Organization [facility] Address [address] [place] [address] Phone Care Team Providers Care Manager Winter Name Role Phone No, Physician Primary Care Provider [phone] Miscellaneous, Not In File Primary Care Provider Unavailable No, Physician Primary Care Provider [phone] Karen Mosley MD Primary Care Provider [phone] No, Physician Primary Care Provider [phone] Encounter Details Date Type Department Care Team (Late st Contact Info) Description 09/01/2018 Telephone [facility] [address] [place] [phone] [address] Alan Social History Tobacco Use Types Packs/Day Years Used Date Smoking Tobacco: Never Smokeless Tobacco: Never Alcohol Use Standard Drinks/Week Comments No 0 (1 standard drink = 0.6 oz pur e alcohol) Comments Unknown Sex and Gender Information Value Date Recorded Sex Assigned at Not on file Legal Sex Female 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
--- OUTSIDE RECORDS SUMMARY | 2024-06-20 08:41 | XMS_ITS | Patient Health Summary ---
Author Organization [facility] Address [address] [place] [address] Care Team Providers Care Adult Neuropsychologist Name Role Phone Pcp, Quin Mejia Im-Fm Primary Care Provider Unavailable Note from [facility],non-owned Affiliates and Associated Physician Practices is amultiple site organization consisting of ambulatory clinics and hospital sitesin [place], [place], [place] and [place]. This disclosure is being madepursuant to the Care Everywhere program and may not contain all information available regarding this patient. Last updated 18.[facility] Allergies * Amoxicillin-Pot Clavulanate(Vomiting) -Low Criticality Medications [...] Comments Blood Pressure 116/62 03/31/2023 10:18 AM PERFUME AND TOILET WATER MAKER Pulse 76 08/24/2022 9:25 AM CDT Temperature 36.6 C (97.8 F) 08/24/2022 8:51 AM CDT Respiratory Rate 16 08/24/2022 8:51 AM CDT Oxygen Saturation 100% 08/24/2022 8:51 AM CDT Inhaled Oxygen Concentration - - Weight 96.1 kg (211 lb 12.8 oz) 023 10:18 AM [employer] Height 170.2 cm (5' 7 ) 03/31/2023 10:1 8 AM [employer] AND [employer] WATER [employer]KER Body Mass Index 33.17 03/31/2023 10:18 AM [employer] AND TOILET WATER MAKER Procedures * US PELVIS W TRANSVAG NON [...] NOTIFICATION(Performed 11/02/2018) Performed for Preop examination * NM REMOVE INTRAUTERINE DEVICE(Performed 10/30/2018) Performed for Attempted [...] for Post-term , 40-42 weeks of gestation ([facility]), Encounter for supervision of normal first in third trimester ([facility]), Gestational thrombocytopenia, third trimester ([facility]) * CROSSMATCH RBC LEUKOREDUCED(Performed 11/13/2015) Performed for Post-term , 40-42 weeks of gestation ([facility]), Encounter for supervision of normal first in third trimester ([facility]), Gestational thrombocytopenia, third trimester ([facility]) * PATHOLOGY TISSUE EXAM (STL)(Performed 11/13/2015) Performed [...] W TRANSVAG NON OB (05/12/2023 12:59 PM PER[employer] TOILE[employer] WATER [employer]KER) Anatomical Region Laterality Modality Pelvis Ultrasound 05/12/2023 2:45 PM [employer]KER Impressions 05/12/2023 2:52 PM [employer] TOILE[employer] WATER MAKER IMPRESSION: Endometrium measures about 1.1 cm. Otherwise, unremarkable ultrasound of the uterus and both ovaries, visualized only transvaginally. Edited by Jaz Pollack on 05/12/2023 2:51 PM > Interpreting Provider: Alma Lim MD on 05/12/2023 2:52 PM Narrative 05/12/2023 2:52 PM PER[employer]ME [employer] TOILE[employer] WATER [employer]KER ULTRASOUND OF THE PELVIS WITH TRANSVAGINAL EVALUATION [...] Comment: NO CULTURE INDICATED Test Performed at: [address] [address] NEYMAR POLLACK MD 09/10/2022 8:36 AM CDT 09/10/2022 8:36 AM CDT Jeannette Mcghee MD LAB - MICROBIOLOGY O RDERABLES Performing Organization Address City/[facility]/ZIP Co de Phone Number [address] [address] * (ABNORMAL) URINALYSIS W/MICROSCOPIC REFLEX TO CULTURE (09/10/2022 8:36 AM CDT) Only the most recent of2 resultswithin the time period is included. Pathologist [facility] Color UA DARK YELLOW YELLOW [facility] Appearance CLEAR CLEAR [facility] Specific Herman UA 1.029 1.001 - 1.035 [facility] pH [...] SEEN /LPF [facility] Comment: Test Performed at: [address] [address] NEYMAR POLLACK MD Urine URINE SPECIMEN OBTAINED BY CLEAN CATCH PROCEDURE / Unknown 09/10/2022 8:36 AM CDT 09/10/2022 8:36 AM CDT Jeannette Mcghee MD LAB - URINALYSIS ORD ERABLES Performing Organization Address [facility] Co de Phone Number [address] [address] * CULTURE URINE REFLEXED II (09/01/2022 8:10 AM CDT) [facility] Reflexive Urine Culture See Below [facility] Comment: CULTURE INDICATED - RESULTS TO FOLLOW Test Performed at: [facility] [address] NEYMAR POLLACK MD 09/01/2022 8:10 AM CDT 09/01/2022 8:11 AM CDT Victorina Leahy APRN-CUT PLUG PACKER LAB - MICROBIO LOGY ORDERABLES Performing Organization Address [facility] de Phone Number [address] [address] * CULTURE URINE (09/01/2022 8:10 AM CDT) Only the most recent of2 resultswithin the time period is included. Culture [facility] Comment: CULTURE, URINE, ROUTINE Micro Number: [id number] Test Status: Final Specimen Source: Urine Specimen Quality: Adequate Result: No Growth Test Performed at: [facility] [address] NEYMAR POLLACK MD 09/01/2022 8:10 AM CDT 09/01/2022 8:11 AM CDT Victorina Leahy APRN-CUT PLUG PACKER LAB - MICROBIO LOGY ORDERABLES Performing Organization Address [facility] de Phone Number [place] [phone] * US PELVIS W TRANSVAG W DOP NON OB (04/08/2022 11:39 AM PERFUME AND TOILET WATER MAKER) Only the most recent of2 resultswithin the time period is included. Anatomical Region Laterality Modality Pelvis Ultrasound 04/08/2022 11:4 2 AM PERFUME AND TOILET WATER MAKER Impressions 04/08/2022 11:44 AM PERFUME AND TOILET WATER MAKER IMPRESSION: Thickening of the endometrium without discrete endometrial or uterine mass. 2.1 cm resolving hemorrhagic cyst within the ovary. > Interpreting Provider: Ar Diop MD on 04/08/2022 11:44 AM Narrative 04/08/2022 11:44 AM PER[employer]ME AND TOILE[employer] WATER MAKER Procedure: US PELVIS W TRANSVAG W DOP NON OB Exam Date: 04/08/2022 11:39 AM Location: [facility] INDICATION: N92.0: Excessive and frequent menstruation [...] NON OB Exam Date: 1:39 AM Location: [facility] INDICATION: N92.0: Excessive and frequent menstruation [...] Resulting Agency Comment [facility] performed at: [facility] [address] [id number] Jeannette Mcghee MD LAB - URINALYSIS ORD ERABLES [facility] INSURANCE BILL [address] [place] [address] * (ABNORMAL) URINALYSIS REFLEX MICROSCOPIC REFLEX CULTURE (01/20/2022 3:30 PM CDT) Specific Herman UA 1.012 1.005 - 1.030 [facility] INSURANCE [...] Resulting Agency Comment Lab Testing performed at: [facility] [address] [phone] Jeannette Mcghee MD LAB - URINALYSIS ORD ERABLES Performing Organization Address City/[facility]/ZIP Co de Phone Number [facility] INSURANCE BILL [address] [place] [address] * CHLAMYDIA + GC AMPLIFIED PROBE (STL) (03/03/2021 2:01 PM CDT) Chlamydia Amplified Probe Negative Negative 03/03/2021 10:40 PM CDT [facility] GC Amplified Probe Negative Negative 03/03/2021 10:40 PM CDT [facility] Microbiology PART OF UTERINE CERVIX / Unknown Collection / Unknown 03/03/2021 2:01 PM CDT 03/03/2021 2:15 PM CDT Narrative [facility] - 03/03/2021 10:40 PM CDT Results based on detection/no detection of ribosomal RNA by amplified method. Anuradha Kumar MD LAB - MICROBIOLOGY O RDERABLES [facility] [address] [place] [address], [facility] [phone] * PAP IG LB+HPV APTIMA (03/03/2021 2:01 PM CDT) Diagnosis Comment 03/07/2021 5:08 AM CDT [facility] ([facility]) Comment:NEGATIVE FOR INTRAEP ITHELIAL LESION OR MALIGNANCY. Specimen Adequacy Comment 5:08 AM CDT [facility] ([facility]) Comment: Satisfactory for evaluation. Endocervical and/or squamous metaplastic cells (endocervical component) are present. Performed by Comment 03/07/2021 5:08 AM CDT [facility] ([facility]) Comment:Yann Miles, Cyto technologist (ASCP) Comment . 03/07/2021 5:08 AM CDT [facility] ([facility]) Note Comment 03/07/2021 5:08 AM CDT [facility] ([facility]) Comment: The Pap smear is a screening test designed to aid in the detection of premalignant and malignant conditions of the uterine cervix. It is not a diagnostic procedure and should not be used as the sole means of detecting cervical cancer. Both false-positive and false-negative reports do occur. [facility] CPT Code Automation Comment 03/07/2021 5:08 AM CDT [facility] ([facility]) Comment: This liquid based ThinPrep(R) pap test was screened with the use of an image guided system. Human papillomavirus Aptima Negative Negative 03/07/2021 5:08 AM CDT [facility] ([facility]) Comment: This nucleic acid amplification test detects fourteen high-risk HPV types (16,18,31,33,35,39,45,51,52,56,58,59,66,68) without differentiation. Pathology/Cytolo gy PART OF UTERINE CERVIX / Unknown Collection / Unknown 03/03/2021 2:01 PM CDT 03/03/2021 2:14 PM CDT Narrative [facility] ([facility]) - 03/07/2021 5:08 AM CDT Performed at: 01 - [address] [id number] Sap Hana Architect: Joy Pyle MD, Phone: [phone] Performed at: 02 - [facility] [id number] S[employer] [place] Architect: Joy Pyle MD, Phone: [phone] Specimen Comment: No. of containers..01 ThinPrep Vial Anuradha Kumar MD LAB - PATHOLOGY/CYTO LOGY ORDERABLES [facility] ([facility]) [address] [place] [address] * TRICHOMONAS RAPID TEST (03/03/2021 2:01 PM CDT) Only the most recent of2 resultswithin the time period is included. Trichomonas Rapid Test Negative Negative 03/03/2021 2:45 PM CDT [facility] Microbiology VAGINAL SWAB / Unknown Collection / Unknown 03/03/2021 2:01 PM CDT 03/03/2021 2:15 PM CDT Anuradha Kumar MD LAB - MICROBIOLOGY O RDERABLES [facility] [address] [place] [address] * CARDIAC RHYTHM STRIP ORDER (11/07/2018 12:24 PM CDT) Narrative 11/07/2018 12:24 PM CDT Ordered by an unspecified provider. Scanned Document CARDIAC SERVICES ORD ERABLES * GROSS + MICRO EXAM (STL) (11/02/2018 1:38 PM CDT) Only the most recent of2 resultswithin the time period is included. Case Report Surgical Pathology Report Case: [id number] Authorizing Provider: Anuradha Kumar MD Collected: 11/02/2018 01:38 PM Ordering Location: [facility] INTRA Received: 11/02/2018 02:06 PM Pathologist: Sandi Vick MD Specimen: IUD, For gross only please 11/04/2018 10:16 AM CDT [facility] Final Diagnosis 1. Foreign object, intrauterine device, removal: -- Intrauterine device /AQ/jam 11/04/2018 10:16 AM CDT [facility] Clinical History 23 year old female 11/04/2018 10:16 AM CDT [facility] Gross Description The requisition and specimen [...] are taken. /KS/jam 11/04/2018 10:16 AM CDT [facility] Disclaimer All histochemical and/or immunohistochemical results are interpreted with controls that demonstrate appropriate staining reactions before reporting results. Note on use of immunocytochemistry reagents: This test was developed and its performance characteristic determined by [facility], Department of Laboratory Medicine. It has not been cleared or approved by the U.S. Food and Drug Administration (FDA). The FDA has determined that such clearance or approval is not necessary. The test is used for clinical purpose. It should not be regarded as investigational or for research. This laboratory is certified to perform high complexity testing. 11/04/2018 10:16 AM CDT [facility] Embedded Images 11/04/2018 10:16 AM CDT [facility] Pathology/Cytolo gy INTRAUTERINE CONTRACEPTIVE DEVICE SUBMITTED SPECIMEN / Unknown 11/02/2018 1:38 PM CDT 11/02/2018 2:06 PM CDT Anuradha Kumar MD LAB - PATHOLOGY/CYTO LOGY ORDERABLES [facility] [address] [place] [phone] * HCG URINE QUALITATIVE - POCT (IP) INTERFACED (11/02/2018 12:09 PM CDT) HCG Qual Urine Negative Negative 11/02/2018 12:11 PM CDT [facility] Urine URINE / Unknown 11/02/2018 1 2:09 PM CDT 11/02/2018 12:11 PM CDT Anuradha Kumar MD LAB - POINT OF CARE ORDERABLES [facility] [address] [place] [id number] * HCG URINE QUAL POCT NOTIFICATION (11/02/2018 11:59 AM CDT) Comment Notification Label Only - See Separate Report 11/02/2018 1:00 PM CDT [facility] Urine URINE / Unknown 11/02/2018 1 1:59 AM CDT 11/02/2018 11:59 AM CDT Carlos Pina MD LAB - URINALYSIS OR DERABLES Performing Organization Address City/[facility]/ZIP Co de Phone Number [facility] [address] [place] [address] * NM REMOVE INTRAUTERINE DEVICE (10/30/2018 6:24 PM CDT) Narrative Lisa Contreras MD - 10/30/2018 6:24 PM CDT Lisa Contreras MD 10/30/2018 6:24 PM See PN Lisa Contreras MD PROCEDURE/MINOR SURG ICAL ORDERABLES * HCG URINE QUALITATIVE - POINT OF CARE (AMB) (10/28/2018) Pathologist [facility] HCG Qual Urine Negative Negative QC Verified Yes Yes Urine URINE / Unknown 10/28/2018 Lisa Contreras MD LAB - POINT OF CARE ORDERABLES * HIV-1 HIV-2 ANTIBODY + HIV P24 AG PANEL (01/07/2018 1:40 PM CDT) Only the most recent of2 resultswithin the time period is included. Pathologist [facility] HIV1/2 Ab + P24 Ag Non Reactive Non Reactive 01/07/2018 4:39 PM CDT [facility] Blood BLOOD SPECIMEN / Unknown Venipuncture / Unknown 01/07/2018 1:40 PM CDT 01/07/2018 1:47 PM CDT Narrative [facility] - 01/07/2018 4:39 PM CDT No Laboratory evidence of HIV infection. Terrie Saez MD LAB - CHEMISTRY HUGO JENKINS [facility] [address] [place] [address] * RPR (01/07/2018 1:40 PM CDT) Only the most recent of2 resultswithin the time period is included. RPR Non Reactive Non Reactive 01/08/2018 11:32 AM CDT [facility] Blood BLOOD SPECIMEN / Unknown Venipuncture / Unknown 01/07/2018 1:40 PM CDT 01/07/2018 1:47 PM CDT Terrie Saez MD LAB - CHEMISTRY HUGO GREGORY Performing Organization Address City/[facility]/ZIP Co de Phone Number [facility] [address] [place] [address] * CHLAMYDIA + GC AMPLIFIED PROBE (01/07/2018 1:40 PM CDT) Only the most recent of2 resultswithin the time period is included. [facility] Chlamydia Amplified Probe Negative Negative 01/10/2018 10:24 AM CDT [facility] GC Amplified Probe Negative Negative 01/10/2018 10:24 AM CDT [facility] Microbiology ENTIRE ENDOCERVIX / Unknown Collection / Unknown 01/07/2018 1:40 PM CDT 01/07/2018 1:47 PM CDT Narrative [facility] - 01/10/2018 10:24 AM CDT Results based on detection/no detection of ribosomal RNA by amplified method. Terrie Saez MD LAB - MICROBIOLOGY O RDERABLES Performing Organization Address City/[facility]/ZIP Co de Phone Number [facility] [address] [phone] * HEPATITIS SCREEN ACUTE (01/07/2018 1:40 PM CDT) Pathologist [facility] HAV Antibody IgM Non Reactive Non Reactive 01/07/2018 3:12 PM CDT [facility] HBsAg Non Reactive Non Reactive 01/07/2018 3:12 PM CDT [facility] HBc Antibody IgM Non Reactive Non Reactive 01/07/2018 3:12 PM CDT [facility] HCV Antibody Screen Non Reactive Non Reactive 01/07/2018 3:12 PM CDT [facility] HCV S/C Ratio 0.05 0.00 - 0.79 01/07/2018 3:12 PM CDT [facility] Comment: Blhgcn-ly-xkvwru ratio (S/CO) <0.80: Non Reactive Blood BLOOD SPECIMEN / Unknown Venipuncture / Unknown 01/07/2018 1:40 PM CDT 01/07/2018 1:47 PM CDT Narrative [facility] - 01/07/2018 3:12 PM CDT Non Reactive - Antibodies to Hepatitis C virus (HCV) were not detected, result does not exclude early acute HCV infection. Non Reactive - Antibodies to Hepatitis C virus (HCV) were not detected, result does not exclude early acute HCV infection. Terrie Saez MD LAB - CHEMISTRY ORDE GREGORY [facility] [address] [place] [phone] * HCG URINE QUALITATIVE - POCT (IP) [facility] (01/29/2017) Test Urine [facility] Comment:neg Urine specimen (specimen) 01/29/2017 Lisa Contreras MD LAB - POINT OF CARE ORDERABLES Performing Organization Address [facility]/ZIP Co de Phone Number [facility] * (ABNORMAL) PAP LB RFLX HPV ASCU (12/29/2016 10:29 AM CDT) Diagnosis Comment(A) 01/12/2017 8:11 PM CDT [facility] ([facility]) Comment: EPITHELIAL CELL ABNORMALITY. ATYPICAL SQUAMOUS CELLS OF UNDETERMINED SIGNIFICANCE. Recommendation Comment(A) 01/12/2017 8:11 PM CDT [facility] ([facility]) Comment:Suggest follow up as clinically appropriate. Specimen Adequacy Comment 017 8:11 PM CDT [facility] ([facility]) Comment: Satisfactory for evaluation. Endocervical and/or squamous metaplastic cells (endocervical component) are present. Areas of partially obscuring blood are present. Performed by Comment 01/12/2017 8:11 PM CDT [facility] ([facility]) Comment:Giselle Bateman, Cyto technologist (ASCP) Electronically Signed by Comment 01/12/2017 8:11 PM CDT [facility] ([facility]) Comment:Ann Santos MD, Pa thologist Comment . 01/12/2017 8:11 PM CDT [facility]) Pathologist Provided ICD10 Comment 01/12/2017 8:11 PM CDT [facility] ([facility]) Comment:R87.610 Note Comment 01/12/2017 8:11 PM CDT [facility]) Comment: The Pap smear is a screening test designed to aid in the detection of premalignant and malignant conditions of the uterine cervix. It is not a diagnostic procedure and should not be used as the sole means of detecting cervical cancer. Both false-positive and false-negative reports do occur. Note Comment 01/12/2017 8:11 PM CDT [facility] ([facility]) Comment:See below for HPV te sting results. Pathology/Cytolo gy PART OF UTERINE CERVIX / Unknown Collection / Unknown 12/29/2016 10:29 AM CDT 12/29/2016 10:43 AM CDT Narrative [facility] ([facility]) - 01/12/2017 8:11 PM CDT Performed at: [address] [place] [id number] Sap Hana Architect: Joy Pyle MD, Phone: [phone] Specimen Comment: Source.............Cervix Specimen Comment: LMP / Prev Treat...None Specimen Comment: No. of containers..01 ThinPrep Vial Lisa Contreras MD LAB - PATHOLOGY/CYTO LOGY ORDERABLES [facility] ([facility]) [address] [place] [address] * HPV DNA PROBE HIGH RISK (12/29/2016 10:29 AM CDT) Human papillomavirus High Risk Negative Negative 01/12/2017 8:11 PM CDT [facility]) Comment: This high-risk HPV test detects thirteen high-risk types (16/18/31/33/35/39/45/51/52/56/58/59/68) without differentiation. Pathology/Cytolo gy PART OF UTERINE CERVIX / Unknown Collection / Unknown 12/29/2016 10:29 AM CDT 12/29/2016 10:43 AM CDT Narrative [facility] ([facility]) - 01/12/2017 8:11 PM CDT Performed at: [address] [id number] Sap Hana Architect: Joy Pyle MD, Phone: [phone] Lisa Contreras MD LAB - MICROBIOLOGY O NORMA [facility] ([facility]) [address] [place] [address] * PATHOLOGY/GENETICS HISTORICAL-ONBASE (12/29/2016) 12/29/2016 Historical Provider LAB - CHEMISTRY O NOR[place] [facility] [address] [place] [address], [facility] * (ABNORMAL) CBC W AUTO DIFFERENTIAL (12/24/2015 1:44 PM CDT) Only the most recent of7 resultswithin the time period is included. WBC 3.0(L) 4.4 - 10.7 x10E9/L 12/24/2015 2:00 PM CDT [facility] WBC Corrected x10E9/L 12/24/2015 2:00 PM CDT [facility] RBC 4.38 3.80 - 5.20 x10E12/L 12/24/2015 2:00 PM CDT [facility] Hemoglobin 12.3 12.0 - 15.6 gm/dL 12/24/2015 2:00 PM CDT [facility] Hematocrit 38.6 35.9 - 45.5 % 12/24/2015 2:00 PM CDT [facility] MCV 88.1 80.7 - 98.3 fl 12/24/2015 2:00 PM CDT [facility] MCH 28.1 26.7 - 34.0 pg 12/24/2015 2:00 PM CDT [facility] MCHC 31.9 30.8 - 35.9 gm/dL 12/24/2015 2:00 PM CDT [facility] Platelet Count 149(L) 153 - 416 x10E9/L 12/24/2015 2:00 PM CDT [facility] RDW-CV 13.0 12.1 - 14.9 % 12/24/2015 2:00 PM T [facility] MPV 10.8 9.4 - 12.9 fl 12/24/2015 2:00 PM T [facility] Neutrophils % 37.4(L) 44.0 - 73.0 % 12/24/2015 2:00 PM T [facility] Lymphocytes % 48.5(H) 20.0 - 43.0 % 12/24/2015 2:00 PM T [facility] Monocytes % 5.4 5.0 - 13.0 % 12/24/2015 2:00 PM T [facility] Eosinophils % 8.1(H) 0.0 - 6.0 % 12/24/2015 2:00 PM [facility] Basophils % 0.3 0.0 - 2.0 % 12/24/2015 2:00 PM [facility] Immature Granulocytes 0.3 0 - 1 % 12/24/2015 2:00 PM [facility] Neutrophil Absolute 1.11(L) 2.01 - 7.14 x10E9/L 12/24/2015 2:00 PM T [facility] Lymphocytes Absolute 1.44 1.07 - 3.94 x10E9/L 12/24/2015 2:00 PM T [facility] Monocytes Absolute 0.16(L) 0.26 - 1.07 x10E9/L 12/24/2015 2:00 PM T [facility] Eosinophils Absolute 0.24 0 - 0.47 x10E9/L 12/24/2015 2:00 PM [facility] Basophils Absolute 0.01 0 - 0.08 x10E9/L 12/24/2015 2:00 PM [facility] Immature Granulocytes Absolute 0.01 0.00 - 0.06 x10E9/L 12/24/2015 2:00 PM [facility] nRBC Auto 0 /100 WBC 12/24/2015 2:00 PM [facility] Blood BLOOD SPECIMEN / Unknown Venipuncture / Unknown 12/24/2015 1:44 PM CDT 12/24/2015 1:52 PM CDT Ekaterina Joseph MANAGER ACCESS-CUT PLUG PACKER LAB - HEMATOLO GY ORDERABLES Performing Organization Address [facility]/ZIP Co de Phone Number [facility] [address] [place] [address] * HCG URINE QUALITATIVE - POINT OF CARE (IP) (12/24/2015 1:29 PM CDT) HCG Qual Urine Negative Negative [facility] POCT TESTING QC Verified Yes Yes [facility] POC T TESTING Urine specimen (specimen) URINE / Unknown 12/24/2015 1:29 PM CDT Roula Moses MANAGER [employer] [facility] [facility] - POINT OF CA RE ORDERABLES Performing Organization Address [facility] Co de Phone Number [facility] [address] [place] [address] * LAB RESULTS ORDER (11/18/2015 10:36 PM [...] Random 2.7 ug/mL 11/14/2015 1:14 AM CDT [facility] Blood BLOOD SPECIMEN / Unknown Venipuncture / Unknown 11/14/2015 12:24 AM CDT 11/14/2015 1:02 AM CDT Shanice Sepulveda MD LAB - CHEMISTRY O RDERABLES Performing Organization Address City/[facility]/ZIP Co de Phone Number [facility] [address] [place] [address] * CROSSMATCH RBC (11/13/2015 6:45 AM CDT) Only the most recent of2 resultswithin the time period is included. Pathologist [facility] Donor # [id number] [id number] 11/15/2015 7:02 AM CDT [facility] Product Code E0336 11/15/2015 7:02 AM CDT [facility] Unit Description [id number] RBC, LR, CPD>AS1 11/15/2015 7:02 AM CDT [facility] ABO Donor Type A 11/15/2015 7:02 AM CDT [facility] Rh Type Unit POS 11/15/2015 7:02 AM CDT [facility] Crossmatch Interpretation Compatible 11/15/2015 7:02 AM T [facility] Unit Status Returned 11/15/2015 7:02 AM T [facility] Miscellaneous samples (specimen) BLOOD SPECIMEN / Unknown Venipuncture / Unknown 11/13/2015 6:45 AM CDT 11/13/2015 6:50 AM CDT Carlos Pina MD LAB - BLOOD BANK OR DERABLES [facility] [address] * (ABNORMAL) BLOOD GASES CORD GALINDO (ISTAT) (11/13/2015 6:26 AM CDT) [facility] pH Cord Venous POCT 7.26(L) 7.28 - 7.40 pH 11/13/2015 6:33 AM T [facility] pCO2 Cord Venous POCT 46(H) 35 - 45 mmHg 11/13/2015 6:33 AM [facility] pO2 Cord Venous POCT 21(L) 22 - 33 mmHg 11/13/2015 6:33 AM T [facility] HCO3 Cord Arterial POCT 21(L) 22 - 24 mmol/L 11/13/2015 6:33 AM [facility] BE Cord Venous POCT Calc -6 -6 - 2 mmol/L 11/13/2015 6:33 AM [facility] TCO2 Cord Venous POCT 22 22 - 30 mmol/L 11/13/2015 6:33 AM [facility] O2 Saturation % Cord Venous Calc POCT 28 % 11/13/2015 6:33 AM CDT [facility] Site CORD GALINDO 11/13/2015 6:33 AM CDT [facility] Sample iSTAT CORD V 11/13/2015 6:33 AM CDT [facility] Blood CORD BLOOD SPECIMEN / Unknown 11/13/2015 6:26 AM CDT 11/13/2015 6:33 AM CDT Shanice Sepulveda MD LAB - POINT OF CA RE ORDERABLES Performing Organization Address [facility] Co de Phone Number [facility] [address] [place] [address] * (ABNORMAL) BLOOD GASES CORD ART (ISTAT) (11/13/2015 6:22 AM CDT) pH Cord Arterial POCT 7.17(L) 7.20 - 7.34 pH 11/13/2015 6:33 AM [facility] pCO2 Cord Arterial POCT 61.5(H) 45 - 55 mmHg 11/13/2015 6:33 AM T [facility] pO2 Cord Arterial POCT <5(LL) 12 - 25 mmHg 11/13/2015 6:33 AM T [facility] HCO3 Cord Arterial POCT 22.5 15 - 29 mmol/L 11/13/2015 6:33 AM T [facility] BE Cord Arterial POCT -7(L) -2.9 - 8.3 mmol/L 11/13/2015 6:33 AM T [facility] TCO2 Cord Arterial POCT 24 mmol/L 11/13/2015 6:33 AM T [facility] O2 Saturation Cord Art % Calc POCT % 11/13/2015 6:33 AM CDT [facility] Site CORD ART 11/13/2015 6:33 AM CDT [facility] Sample iSTAT CORD A 11/13/2015 6:33 AM T [facility] Blood CORD BLOOD SPECIMEN / Unknown 11/13/2015 6:22 AM CDT 11/13/2015 6:33 AM CDT Shanice Sepulveda MD LAB - POINT OF CA RE ORDERABLES [facility] [address] [place] [phone] * NEURAXIAL BLOCK (11/12/2015 2:50 PM CDT) [...] CDT) ABO A 11/11/2015 11:24 PM CDT [facility] Rh Type Positive 11/11/2015 11:24 PM CDT [facility] Comment:History check perfor med. Retype required. Antibody Screen Negative 11/11/2015 11:24 PM CDT [facility] Miscellaneous samples (specimen) BLOOD SPECIMEN / Unknown Venipuncture / Unknown 11/11/2015 10:03 PM CDT 11/11/2015 10:41 PM CDT Elzbieta Momin MD LAB - BLOOD BANK ORD ERABLES Performing Organization Address [facility] Co de Phone Number [facility] [address] [place] [address] * GLUCOSE PROTEIN KETONE URINE - POINT [...] POINT OF CARE ORDERABLES Performing Organization Address [facility] Co de Phone Number [facility] TEST[facility] [address] [place] [address] * (ABNORMAL) PLATELET COUNT AUTO (10/23/2015 9:19 AM CDT) Platelet Count 109(L) 153 - 416 x10E9/L 10/23/2015 9:29 AM CDT [facility] Blood BLOOD SPECIMEN / Unknown Venipuncture / Unknown 10/23/2015 9:19 AM CDT 10/23/2015 9:25 AM CDT Elzbieta Momin MD LAB - HEMATOLOGY ORD ERABLES Performing Organization Address City/[facility]/ZIP Co de Phone Number [facility] [address] [place] [address] * CULTURE STREP B (10/09/2015 9:00 AM CDT) Culture Negative for Beta Hemolytic Streptococcus Group B TAHIRA 10/12/2015 9:05 AM CDT [facility] MICRO[facility] Microbiology MISCELLANEOUS SAMPLES / Unknown Collection / Unknown 10/09/2015 9:00 AM CDT 10/09/2015 9:04 AM CDT Katelynn Alvarado MD LAB - MICROBIOLOGY O RDERABLES Performing Organization Address City/[facility]/ZIP Co de Phone Number [facility]CRO[facility] [address] [phone] * GLUCOSE CHALLENGE (08/07/2015 9:19 AM CDT) [facility] Glucose Challenge 77 64 - 140 mg/dL 08/07/2015 10:33 AM CDT [facility] Glucose Challenge Time 08/07/2015 10:33 AM CDT [facility] Blood BLOOD SPECIMEN / Unknown Venipuncture / Unknown 08/07/2015 9:19 AM CDT 08/07/2015 9:55 AM CDT Michelle Bingham MD LAB - CHEMISTRY HUOG JENKINS Performing Organization Address City/[facility] Co de Phone Number [facility] [address] [place] [address] * SONOGRAM - COMPLETE (08/07/2015 8:47 AM CDT) Only the most recent of3 resultswithin the time period is included. Anatomical Region Laterality Modality Other 08/07/2015 8:47 AM CDT Narrative 08/07/2015 10:52 AM CDT [facility] PHONE: FAX: Pat. Name: PAULINE GALLEGO Pat. No: [id number] Study Date: 08/07/2015 8:47am , Age: 09 1995, 20 Pregnancies: 1 Height: 67 in Weight: 220 lb LMP: 01/21/2015 GA by LMP: 28w2d GA by 1st: 27w2d GA by US: 26w6d GA Selected: 27w2d (From First S) DAMIÁN: 11/04/2015 Referring MD: MD NATALIIA Windows Desktop Support: Saima Santiago RDMS/LIVE CPT4: 27443 BMI: 34.45 Hist/Ind: Small for gestational age MEASUREMENTS & AGE GROWTH EVALUATION Measurement GA Range Srce %for GA Ratios ----- ---- ------- BPD 6.7 cm 27w0d (38v0q-70v6f) Hadl BPD 45% FL/BPD 0.77 (0.71 - 0.87) HC 24.6 cm 26w5d (20m9g-05y3a) Hadl HC 37% FL/AC 0.24 (0.20 - 0.24) AC 21.9 cm 26w3d (06o0m-24k9d) Hadl AC 31% HC/AC 1.12 (1.00 - 1.18) FL 5.2 cm 27w4d (00e9k-25e7y) Hadl FL 55% CI 0.76 (0.70 - 0.86) HL 4.5 cm 26w6d (31k4r-18w8m) Adi HL 42% GA for sonogram 26w6d (24i4l-47b7i) Weight Estimate: based on (BPD,HC,AC,FL) Avg Weight: [...] <Electronic Signature> 08/07/2015 10:48am Ronaldo Truong MD [facility] ORDERABLES Care Teams Adult Neuropsychologist Relationship Specialty Start Date End Date Quin Winter [facility] PCP - General 11/12/22
--- OUTSIDE RECORDS SUMMARY | 2024-06-20 08:41 | XMS_ITS | Clinical Summary ---
Author Organization [facility] Address [address] [place] [address] Care Team Providers Care Pcat Instructor Name Role Phone Unavailable Primary Care Provider [...]
--- OUTSIDE RECORDS SUMMARY | 2024-06-20 08:41 | XMS_ITS | Referral Summary ---
Author Organization [facility] Address [facility] [place] [address] Care Team Providers Care Assistant Baseball Coach Name Role Phone No, Physician Primary Care Provider [phone] Encounters Date Type Department Care Team Description 05/31/2024 12:15 PM WELDER PIPE MAKING [facility] [address] [place] [phone] Iron deficiency anemia, unspecified iron deficiency anemia type (Primary Dx) 05/18/2024 Telephone [facility] Hematology [address] [place] [phone] Shanon Ortiz RN 05/18/2024 Orders Only [facility]ematology [address] [place] [phone] Shanon Ortiz RN Iron deficiency anemia, unspecified iron deficiency anemia type (Primary Dx) 05/16/2024 Orders Only [facility]ematology [address] [place] [phone] Nasra Anguiano Iron deficiency anemia, unspecified [...] (05/26/2018): Added automatically from request for surgery [id number] 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[facility]) 6 Overview (07/10/2018): Overview: Platelets 132 on [...] HPV 05/06/13 Morbid obesity 05/26/2018 10/09/2018 Immunizations Immunization Administration Dates Next Due DTP 07/20/1994, 4,1993,03/25 [...] on file Legal Sex Female 11:25 AM WELDER PIPE MAKING Gender Identity Not on file Sexual Orientation Not on file Last Filed Vital Signs Vital Sign Reading Time Taken Comments Blood Pressure 103/68 05/31/2024 3:00 PM WELDER PIPE MAKING Pulse 93 05/31/2024 3:00 PM WELDER PIPE MAKING Temperature 37 C (98.6 F) 05/31/2024 3:00 PM WELDER PIPE MAKING Respiratory Rate 16 05/31/2024 3:00 PM WELDER PIPE MAKING Oxygen Saturation 100% 05/31/2024 3:00 PM WELDER PIPE MAKING Inhaled Oxygen Concentration - - Weight 97.4 kg (214 lb 12.8 oz) 025 12:18 PM WELDER PIPE MAKING Height 170.2 cm (5' 7 ) 02/15/2024 9:39 AM CDT Body Mass Index 33.64 02/15/2024 9:39 AM CDT Plan of Treatment Not on file Procedures Procedure Name Priority Date/Time Associated Diagnosis Comments IRON PROFILE W/ IBC Routine 05/17/2024 3 :04 PM WELDER PIPE MAKING Iron deficiency anemia, unspecified iron deficiency anemia type RETICULOCYTES Routine 05/17/2024 3:04 PM WELDER PIPE MAKING Iron deficiency anemia, unspecified iron deficiency anemia type FERRITIN Routine 05/17/2024 3:04 PM WELDER PIPE MAKING Iron deficiency anemia, unspecified iron deficiency anemia type CBC WITH AUTO DIFFERENTIAL Routine 05/17/2024 3:04 PM WELDER PIPE MAKING Iron deficiency anemia, unspecified iron deficiency anemia type PAP ONLY Routine 12/19/2019 12:00 PM CDT from Last 3 Months or Most Recently Relevant to Health Maintenance Results * (ABNORMAL) Iron profile w/ IBC (05/17/2024 3:04 PM WELDER PIPE MAKING) Pathologist [facility] Iron 22(L) 40 - 190 mcg/dL [facility] TIBC 370 250 - 450 mcg/dL (calc) [facility] Iron saturation 6(L) 16 - 45 % (calc) [facility] Blood 05/17/2024 3:04 PM WELDER PIPE MAKING 05/17/2024 3:04 PM WELDER PIPE MAKING us Lisa Eagle DEVELOPER ADVOCATE LAB BLOOD ORDERABLES F inal Result [facility] [address] [place] [address] * (ABNORMAL) CBC with auto differential (05/17/2024 3:04 PM WELDER PIPE MAKING) Pathologist [facility] WBC 4.3 3.8 - 10.8 Thousand/u L [...] [facility] Blood 05/17/2024 3:04 PM WELDER PIPE MAKING 05/17/2024 3:04 PM WELDER PIPE MAKING Lisa Eagle NP LAB BLOOD ORDERABLES F inal Result [facility] [address] [place] [address] * Reticulocyte Count (05/17/2024 3:04 PM WELDER PIPE MAKING) Reticulocyte count, automated 0.9 % [facility] Reticulocyte, absolute 37,260 20,000 - 80,000 cells/uL [facility] Blood 05/17/2024 3:04 PM WELDER PIPE MAKING 05/17/2024 3:04 PM WELDER PIPE MAKING Lisa Tyesha Eagle DEVELOPER ADVOCATE LAB BLOOD ORDERABLES F inal Result Performing Organization Address City/[facility]/ZIP Co de Phone Number [facility] [address] [facility] [place] [address] * (ABNORMAL) Ferritin (05/17/2024 3:04 PM WELDER PIPE MAKING) Ferritin 8(L) 16 - 154 ng/mL [facility] Comment: Your request to have a duplicate copy faxed has been acknowledged. Queued to: [id number] Blood 05/17/2024 3:04 PM WELDER PIPE MAKING 05/17/2024 3:04 PM WELDER PIPE MAKING Lisa Eagle DEVELOPER ADVOCATE LAB BLOOD ORDERABLES F inal Result Performing Organization Address [facility] Co de Phone Number [facility] [address] [place] [address] * Pap Only (12/19/2019 12:00 PM CDT) 12/19/2019 12:0 0 PM CDT 12/19/2019 12:41 PM CDT Narrative 12/22/2019 2:30 PM CDT EPIC results best viewed via link to PDF [facility] Lisa Moon [facility] [place] [address] CYTOPATHOLOGY REPORT FINAL Patient Name: RASTA WARE Gender: F : 1995 (Age: 24) Address: [address] [place] [address] Hospital #: [id number] Service: KILN OPERATOR Location: [facility] Patient Type: [facility] Ref Lab Taken: 12/19/2019 Received: 12/19/2019 Accessioned: 12/20/2019 Reported: 12/22/2019 Physician(s): Mary Faulkner M.D. FINAL INTERPRETATION SOURCE OF SPECIMEN: Liquid based Thin Prep pap STATEMENT OF ADEQUACY: - Satisfactory for evaluation - Endocervical cells/transformation zone sample present GENERAL CATEGORY: - Negative for squamous intraepithelial lesion or malignancy /12/22/2019 14:30 Leni Braga M.S.,CT(ASCP) Report Electronically Reviewed and Signed Out By [...] determined by the Surgical Pathology Department at [facility] as part of an ongoing supplier quality program and in compliance with federally mandated [...] determined by the Surgical Pathology Department of [facility]. It has not been cleared or approved by the U. S. Food and Drug Administration. Mary Faulkner MD LAB CYTOLOGY ORDERABLES Fin al Result from Last 3 Months or Most Recently Relevant to Health Maintenance Insurance [facility] [employer] Address: [address] [place] [address] [facility] [employer] [facility] Advance Directives For more information, please contact: [phone] * Full Code (Latest Code Status on File) Date Activated Date Inactivated Comments 12/16/2018 8:56 PM 12/20/2018 6:08 PM * Full Code Date Activated Date Inactivated Comments 07/06/2018 2:35 PM 07/06/2018 8:21 PM Care Teams Assistant Baseball Coach Relationship Specialty Start Date End Date No, Physician PCP - General 01/03/20
--- OUTSIDE RECORDS SUMMARY | 2024-06-20 08:41 | XMS_ITS | Encounter Summary ---
Author Organization [facility] Address [address] [place] [address] Phone Care Team Providers Care Aircraft Steel Fabricator Name Role Phone No, Physician Primary Care Provider [phone] Miscellaneous, Not In File Primary Care Provider Unavailable No, Physician Primary Care Provider [phone] Karen Mosley MD Primary Care Provider [phone] No, Physician Primary Care Provider [phone] Encounter Details Date Type Department Care Team (Late st Contact Info) Description 07/20/2018 Documentation [facility] Pain Management [facility] [place] [address] Penelope Alan Social History Tobacco Use Types Packs/Day Years Used Date Smoking Tobacco: Never Smokeless Tobacco: Never Alcohol Use Standard Drinks/Week Comments No 0 (1 standard drink = 0.6 oz pur e alcohol) Comments Unknown Sex and Gender Information Value Date Recorded Sex Assigned at Not on file Legal Sex Female 11:25 AM COMPUTER SYSTEMS HARDWARE ANALYST Gender Identity Not on file Sexual Orientation [...] documented as of this encounter Care Teams Aircraft Steel Fabricator Relationship Specialty Start Date End Date No, Physician PCP - General 11/30/17 12/04/18 Miscellaneous, Not In File PCP - General 12/05/18 9 No, Physician PCP - General 12/06/18 07/13/19 Karen Mosley MD [address] [place] [address] DR Francisca SHELTON [address] [place] [address] PCP - General Internal Medicine 07/14/19 01/02/20 No, Physician PCP - General 01/03/20 documented as of this encounter
--- OUTSIDE RECORDS SUMMARY | 2024-06-20 08:41 | XMS_ITS | Clinical Summary ---
Author Organization [facility] Address [address] [place] [address] Care Team Providers Care Community Dietitian Name Role Phone Unavailable Primary Care Provider Unavailabl e Social History Tobacco Use Types Packs/Day Years Used Date Smoking Tobacco: Never Assessed Comments Unknown Sex and Gender Information Value Date Recorded Sex Assigned at Not on file Legal Sex Female 11:04 AM OVERHEAD CRANE INSPECTOR Gender Identity Not on file Sexual Orientation Not on file Plan of Treatment Health Maintenance Due Date Last Done Comments HEPATITIS B VACCINES (1 of 3 - 19+ 3-dose series) 01/14/2012 CERVICAL CANCER SCREENING 2023 INFLUENZA VACCINE (#1) 2023 06/11/2015 DTAP/TDAP/TD VACCINES (2 - T d or Tdap) 08/06/2025 08/07/2015 HPV VACCINES Aged Out No longer eligi ble based on patient's age to complete this topic
--- OUTSIDE RECORDS SUMMARY | 2024-06-20 08:41 | XMS_ITS | Clinical Summary ---
Author Organization [facility] Address [address] [place] [address] Care Team Providers Care Podiatric Aide Name Role Phone Pcp, Quin Mejia Im-Fm Primary Care Provider Unavailable Source Comments [facility],non-owned Affiliates and Associated Physician Practices is amultiple site organization consisting of ambulatory clinics and hospital sitesin [place], [place] and [place]. This disclosure is being madepursuant to the Care Everywhere program and may not contain all information available regarding this patient. Last updated 18.[facility] Allergies Active Allergy Reactions Criticality Noted Date [...] 03/03/2021 Immunizations Name Administration Dates Next Due Doyenz primary monoval ent 12+ yr 0.3mL Purple [...] Comments Blood Pressure 116/62 03/31/2023 10:18 AM SATURATION EQUIPMENT OPERATOR Pulse 76 08/24/2022 9:25 AM CDT Temperature 36.6 C (97.8 F) 08/24/2022 8:51 AM CDT Respiratory Rate 16 08/24/2022 8:51 AM CDT Oxygen Saturation 100% 08/24/2022 8:51 AM CDT Inhaled Oxygen Concentration - - Weight 96.1 kg (211 lb 12.8 oz) 023 10:18 AM SATURATION EQUIPMENT OPERATOR Height 170.2 cm (5' 7 ) 03/31/2023 10:1 8 AM SATURATION EQUIPMENT OPERATOR Body Mass Index 33.17 03/31/2023 10:18 AM SATURATION EQUIPMENT OPERATOR Plan of Treatment Health Maintenance Due Date [...] Diagnosis Comment 03/07/2021 5:08 AM CDT [facility] ([facility]) Comment:NEGATIVE FOR INTRAEP ITHELIAL LESION OR MALIGNANCY. Specimen Adequacy Comment 5:08 AM CDT [facility] ([facility]) Comment: Satisfactory for evaluation. Endocervical and/or squamous metaplastic cells (endocervical component) are present. Performed by Comment 03/07/2021 5:08 AM CDT [facility] ([facility]) Comment:Yann Miles, Cyto technologist (ASCP) Comment . 03/07/2021 5:08 AM CDT [facility] ([facility]) Note Comment 03/07/2021 5:08 AM CDT [facility] ([facility]) Comment: The Pap smear is a screening test designed to aid in the detection of premalignant and malignant conditions of the uterine cervix. It is not a diagnostic procedure and should not be used as the sole means of detecting cervical cancer. Both false-positive and false-negative reports do occur. IGL[facility] CPT Code Automation Comment 03/07/2021 5:08 AM CDT [facility] ([facility]) Comment: This liquid based ThinPrep(R) pap test was screened with the use of an image guided system. Human papillomavirus Aptima Negative Negative 03/07/2021 5:08 AM CDT [facility] ([facility]) Comment: This nucleic acid amplification test detects fourteen high-risk HPV types (16,18,31,33,35,39,45,51,52,56,58,59,66,68) without differentiation. Pathology/Cytolo gy PART OF UTERINE CERVIX / Unknown Collection / Unknown 03/03/2021 2:01 PM CDT 03/03/2021 2:14 PM CDT Narrative [facility] ([facility]) - 03/07/2021 5:08 AM CDT Performed at: 01 - [address] [id number] Medical Records Manager: Joy Pyle MD, Phone: [phone] Performed at: 02 - [address] [id number] Medical Records Manager: Joy Pyle MD, Phone: [phone] Specimen Comment: No. of containers..01 ThinPrep Vial Anuradha Kumar MD LAB - PATHOLOGY/CYTO LOGY ORDERABLES Performing Organization Address City/[facility]/ZIP Co de Phone Number [facility] ([facility]) [address] [place] [address] * HIV-1 HIV-2 ANTIBODY + HIV P24 AG PANEL (01/07/2018 1:40 PM CDT) HIV1/2 Ab + P24 Ag Non Reactive Non Reactive 01/07/2018 4:39 PM CDT [facility] Blood BLOOD SPECIMEN / Unknown Venipuncture / Unknown 01/07/2018 1:40 PM CDT 01/07/2018 1:47 PM CDT Narrative [facility] - 01/07/2018 4:39 PM CDT No Laboratory evidence of HIV infection. Terrie Saez MD LAB - CHEMISTRY HUGO JENKINS [facility] [address] [place] [address] * HEPATITIS SCREEN ACUTE (01/07/2018 1:40 PM CDT) HAV Antibody IgM Non Reactive Non Reactive 01/07/2018 3:12 PM CDT [facility] HBsAg Non Reactive Non Reactive 01/07/2018 3:12 PM CDT [facility] HBc Antibody IgM Non Reactive Non Reactive 01/07/2018 3:12 PM CDT [facility] HCV Antibody Screen Non Reactive Non Reactive 01/07/2018 3:12 PM CDT [facility] HCV S/C Ratio 0.05 0.00 - 0.79 01/07/2018 3:12 PM CDT [facility] Comment: Liqqbv-mm-vopalx ratio (S/CO) <0.80: Non Reactive Blood BLOOD SPECIMEN / Unknown Venipuncture / Unknown 01/07/2018 1:40 PM CDT 01/07/2018 1:47 PM CDT Narrative [facility] - 01/07/2018 3:12 PM CDT Non Reactive - Antibodies to Hepatitis C virus (HCV) were not detected, result does not exclude early acute HCV infection. Non Reactive - Antibodies to Hepatitis C virus (HCV) were not detected, result does not exclude early acute HCV infection. Terrie Saez MD LAB - CHEMISTRY HUGO JENKINS [facility] Organization Address City/State/ZIP Co de Phone Number [facility] [address] [phone] from Last 3 Months or Most Recently Relevant to Health Maintenance Advance Directives * Full Code (Latest Code Status on File) Date Activated Date Inactivated Comments 11/13/2015 5:38 AM 11/17/2015 2:07 PM * Full Code Date Activated Date Inactivated Comments 11/11/2015 9:48 PM 11/13/2015 5:38 AM Care Teams Podiatric Aide Relationship Specialty Start Date End Date Quin Winter Russ PCP - General 11/12/22
--- OUTSIDE RECORDS SUMMARY | 2024-06-20 08:41 | XMS_ITS | Clinical Summary ---
Author Organization [facility] Address [address] [place] [id number] Care Team Providers Care Explosives Detonator Name Role Phone No, Physician Primary Care Provider [phone] Allergies Active Allergy Reactions Criticality Noted Date [...] (05/26/2018): Added automatically from request for surgery [id number] 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[facility]/HCC) 6 Overview (07/10/2018): Overview: Platelets 132 on [...] Department Care Team Description 05/31/2024 12:15 PM NAIL POLISH BRUSH MACHINE FEEDER [facility] [address] [place] [address] Iron deficiency anemia, unspecified iron deficiency anemia type (Primary Dx) 05/18/2024 Telephone [facility] [address] [place] [phone] Shanon Ortiz RN 05/18/2024 Orders Only [facility] [address] [place] [phone] Shanon Ortiz RN Iron deficiency anemia, unspecified iron deficiency anemia type (Primary Dx) 05/16/2024 Orders Only [facility] [address] [place] [phone] Nasra Anguiano Iron deficiency anemia, unspecified iron deficiency anemia type (Primary Dx) from Last 3 Months Immunizations Immunization Administration Dates Next Due DTP [...] on file Legal Sex Female 11:25 AM NAIL POLISH BRUSH MACHINE FEEDER Gender Identity Not on file Sexual Orientation Not on file Obstetrics History Para Term AB IAB SAB Ectopic Multiple Livin g Live Births 1 Date Outcome GA Total Labor Labor/2nd/3rd Weight Sex Type Anes PTL Clau A1 A5 Name Clin Last Filed Vital Signs Vital Sign Reading Time Taken Comments Blood Pressure 103/68 05/31/2024 3:00 PM NAIL POLISH BRUSH MACHINE FEEDER Pulse 93 05/31/2024 3:00 PM NAIL POLISH BRUSH MACHINE FEEDER Temperature 37 C (98.6 F) 05/31/2024 3:00 PM NAIL POLISH BRUSH MACHINE FEEDER Respiratory Rate 16 05/31/2024 3:00 PM NAIL POLISH BRUSH MACHINE FEEDER Oxygen Saturation 100% 05/31/2024 3:00 PM NAIL POLISH BRUSH MACHINE FEEDER Inhaled Oxygen Concentration - - Weight 97.4 kg (214 lb 12.8 oz) 025 12:18 PM NAIL POLISH BRUSH MACHINE FEEDER Height 170.2 cm (5' 7 ) 02/15/2024 [...] W/ IBC Routine 05/17/2024 3 :04 PM NAIL POLISH BRUSH MACHINE FEEDER Iron deficiency anemia, unspecified iron deficiency anemia type RETICULOCYTES Routine 05/17/2024 3:04 PM NAIL POLISH BRUSH MACHINE FEEDER Iron deficiency anemia, unspecified iron deficiency anemia type FERRITIN Routine 05/17/2024 3:04 PM NAIL POLISH BRUSH MACHINE FEEDER Iron deficiency anemia, unspecified iron deficiency anemia type CBC WITH AUTO DIFFERENTIAL Routine 05/17/2024 3:04 PM NAIL POLISH BRUSH MACHINE FEEDER Iron deficiency anemia, unspecified iron deficiency anemia type PAP ONLY Routine 12/19/2019 12:00 PM CDT from Last 3 Months or Most Recently Relevant to Health Maintenance Results * (ABNORMAL) Iron profile w/ IBC (05/17/2024 3:04 PM NAIL POLISH BRUSH MACHINE FEEDER) Pathologist [facility] Iron 22(L) 40 - 190 mcg/dL [facility] TIBC 370 250 - 450 mcg/dL (calc) [facility] Iron saturation 6(L) 16 - 45 % (calc) [facility] Blood 05/17/2024 3:04 PM NAIL POLISH BRUSH MACHINE FEEDER 05/17/2024 3:04 PM NAIL POLISH BRUSH MACHINE FEEDER us Lisa Eagle RESOURCING CONSULTANT LAB BLOOD ORDERABLES F inal Result [facility] [address] [facility] [place] [phone] * (ABNORMAL) CBC with auto differential (05/17/2024 3:04 PM NAIL POLISH BRUSH MACHINE FEEDER) Pathologist [facility] WBC 4.3 3.8 - 10.8 Thousand/u L [...] [facility] Blood 05/17/2024 3:04 PM NAIL POLISH BRUSH MACHINE FEEDER 05/17/2024 3:04 PM NAIL POLISH BRUSH MACHINE FEEDER Lisa Eagle RESOURCING CONSULTANT LAB BLOOD ORDERABLES F inal Result Performing Organization Address [facility] de Phone Number [facility] [address] [place] [address] * Reticulocyte Count (05/17/2024 3:04 PM NAIL POLISH BRUSH MACHINE FEEDER) [facility] Reticulocyte count, automated 0.9 % [facility] Reticulocyte, absolute 37,260 20,000 - 80,000 cells/uL [facility] Blood 05/17/2024 3:04 PM NAIL POLISH BRUSH MACHINE FEEDER 05/17/2024 3:04 PM NAIL POLISH BRUSH MACHINE FEEDER Lisa Eagle RESOURCING CONSULTANT LAB BLOOD ORDERABLES F inal Result Performing Organization Address [facility] de Phone Number [facility] [address] [place] [address] * (ABNORMAL) Ferritin (05/17/2024 3:04 PM NAIL POLISH BRUSH MACHINE FEEDER) Pathologist [facility] Ferritin 8(L) 16 - 154 ng/mL [facility] Comment: Your request to have a duplicate copy faxed has been acknowledged. Queued to: [id number] Blood 05/17/2024 3:04 PM NAIL POLISH BRUSH MACHINE FEEDER 05/17/2024 3:04 PM NAIL POLISH BRUSH MACHINE FEEDER Lisa Eagle RESOURCING CONSULTANT LAB BLOOD ORDERABLES F inal Result [facility] [address] [place] [phone] * Pap Only (12/19/2019 12:00 PM CDT) 12/19/2019 12:0 0 PM CDT 12/19/2019 12:41 PM CDT Narrative 12/22/2019 2:30 PM CDT EPIC results best viewed via link to PDF [facility] [place] [address] CYTOPATHOLOGY REPORT FINAL Patient Name: PAULINE WARE Gender: F : 1995 (Age: 24) Address: [address] [place] [address] Hospital #: [id number] Service: TAXI SERVICER Location: [facility] [address] Patient Type: [facility] Ref Lab Taken: 12/19/2019 Received: 12/19/2019 Accessioned: 12/20/2019 Reported: 12/22/2019 Physician(s): Mary Faulkner M.D. FINAL INTERPRETATION SOURCE OF SPECIMEN: Liquid based Thin Prep pap STATEMENT OF ADEQUACY: - Satisfactory for evaluation - Endocervical cells/transformation zone sample present GENERAL CATEGORY: - Negative for squamous intraepithelial lesion or malignancy cad/12/22/2019 14:30 Leni Braga M.S.,CT(ASCP) Report Electronically Reviewed [...] determined by the Surgical Pathology Department at [facility] as part of an ongoing bottle house quality control technician program and in compliance with federally mandated [...] determined by the Surgical Pathology Department of [facility]. It has not been cleared or approved by the U. S. Food and Drug Administration. Mary Faulkner MD LAB CYTOLOGY ORDERABLES Fin al Result from Last 3 Months or Most Recently Relevant to Health Maintenance Insurance [employer] Address: [facility] [id number] [place] [id number] [facility] Advance Directives For more information, please contact: [phone] * Full Code (Latest Code Status on File) Date Activated Date Inactivated Comments 12/16/2018 8:56 PM 12/20/2018 6:08 PM * Full Code Date Activated Date Inactivated Comments 07/06/2018 2:35 PM 07/06/2018 8:21 PM Care Teams Explosives Detonator Relationship Specialty Start Date End Date No, Physician PCP - General 01/03/20
--- OUTSIDE RECORDS SUMMARY | 2024-06-20 08:41 | XMS_ITS | Referral Summary ---
Author Organization [facility] [employer] Address [address] 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 This disclosure is being madepursuant to the Care Everywhere program and may not contain all information available regarding this patient. Last updated 18.[facility] [employer] Allergies Active Allergy Reactions Criticality Noted Date [...] 03/03/2021 Immunizations Name Administration Dates Next Due Lupatech primary monoval ent 12+ yr 0.3mL Purple [...] Comments Blood Pressure 116/62 03/31/2023 10:18 AM GRADUATE ENGINEER Pulse 76 08/24/2022 9:25 AM CDT Temperature 36.6 C (97.8 F) 08/24/2022 8:51 AM CDT Respiratory Rate 16 08/24/2022 8:51 AM CDT Oxygen Saturation 100% 08/24/2022 8:51 AM CDT Inhaled Oxygen Concentration - - Weight 96.1 kg (211 lb 12.8 oz) 023 10:18 AM GRADUATE ENGINEER Height 170.2 cm (5' 7 ) 03/31/2023 10:1 8 AM GRADUATE ENGINEER Body Mass Index 33.17 03/31/2023 10:18 AM GRADUATE ENGINEER Functional Status Functional Status Response Date of [...] Diagnosis Comment 03/07/2021 5:08 AM CDT [facility] ([facility]) Comment:NEGATIVE FOR INTRAEP ITHELIAL LESION OR MALIGNANCY. Specimen Adequacy Comment 021 5:08 AM CDT [facility] ([facility]) Comment: Satisfactory for evaluation. Endocervical and/or squamous metaplastic cells (endocervical component) are present. Performed by Comment 03/07/2021 5:08 AM CDT [facility] ([facility]) Comment:Yann Miles, Cyto technologist (ASCP) Comment . 03/07/2021 5:08 AM CDT [facility] ([facility]) Note Comment 03/07/2021 5:08 AM CDT [facility] ([facility]) Comment: The Pap smear is a screening test designed to aid in the detection of premalignant and malignant conditions of the uterine cervix. It is not a diagnostic procedure and should not be used as the sole means of detecting cervical cancer. Both false-positive and false-negative reports do occur. IGLBP CPT Code Automation Comment 03/07/2021 5:08 AM CDT [facility] ([facility]) Comment: This liquid based ThinPrep(R) pap test was screened with the use of an image guided system. Human papillomavirus Aptima Negative Negative 03/07/2021 5:08 AM CDT [facility] ([facility]) Comment: This nucleic acid amplification test detects fourteen high-risk HPV types (16,18,31,33,35,39,45,51,52,56,58,59,66,68) without differentiation. Pathology/Cytolo gy PART OF UTERINE CERVIX / Unknown Collection / Unknown 03/03/2021 2:01 PM CDT 03/03/2021 2:14 PM CDT Narrative [facility] ([facility]) - 03/07/2021 5:08 AM CDT Performed at: 01 - [address] [id number] Alumni Relations Coordinator: Joy Pyle MD, Phone: [phone] Performed at: 02 - [address] [id number] Alumni Relations Coordinator: Joy Pyle MD, Phone: [phone] Specimen Comment: No. of containers..01 ThinPrep Vial Anuradha Kumar MD LAB - PATHOLOGY/CYTO LOGY ORDERABLES [facility] ([facility]) [address] [place] [address] * HIV-1 HIV-2 ANTIBODY + HIV P24 AG PANEL (01/07/2018 1:40 PM CDT) [facility] HIV1/2 Ab + P24 Ag Non Reactive Non Reactive 01/07/2018 4:39 PM CDT [facility] Blood BLOOD SPECIMEN / Unknown Venipuncture / Unknown 01/07/2018 1:40 PM CDT 01/07/2018 1:47 PM CDT Narrative [facility] - 01/07/2018 4:39 PM CDT No Laboratory evidence of HIV infection. Terrie Saez MD LAB - CHEMISTRY HUGO JENKINS [facility] [address] [place] [id number] * HEPATITIS SCREEN ACUTE (01/07/2018 1:40 PM CDT) [facility] HAV Antibody IgM Non Reactive Non Reactive 01/07/2018 3:12 PM CDT [facility] HBsAg Non Reactive Non Reactive 01/07/2018 3:12 PM CDT [facility] HBc Antibody IgM Non Reactive Non Reactive 01/07/2018 3:12 PM CDT [facility] HCV Antibody Screen Non Reactive Non Reactive 01/07/2018 3:12 PM CDT [facility] HCV S/C Ratio 0.05 0.00 - 0.79 01/07/2018 3:12 PM CDT [facility] Comment: Hhyfri-ly-drvciw ratio (S/CO) <0.80: Non Reactive Blood BLOOD SPECIMEN / Unknown Venipuncture / Unknown 01/07/2018 1:40 PM CDT 01/07/2018 1:47 PM CDT Narrative [facility] - 01/07/2018 3:12 PM CDT Non Reactive - Antibodies to Hepatitis C virus (HCV) were not detected, result does not exclude early acute HCV infection. Non Reactive - Antibodies to Hepatitis C virus (HCV) were not detected, result does not exclude early acute HCV infection. Terrie Saez MD LAB - CHEMISTRY HUGO Benitez Organization Address City/State/ZIP Co de Phone Number 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
[2024-06-20 08:44] VITALS: BP 133/76; PULSE 121; RESP 18; TEMP 38.4; O2SAT 100
[2024-06-20 08:47] VITALS: O2SAT 100
--- OUTSIDE RECORDS SUMMARY | 2024-06-20 09:18 | XMS_ITS | Patient Health Summary ---
Author Organization [facility] Address [address] 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 This disclosure is being madepursuant to the Care Everywhere program and may not contain all information available regarding this patient. Last updated 18.[facility] Allergies * Amoxicillin-Pot Clavulanate(Vomiting) -Low Criticality Medications [...] Comments Blood Pressure 116/62 03/31/2023 10:18 AM MOTOR INSTALLER Pulse 76 08/24/2022 9:25 AM CDT Temperature 36.6 C (97.8 F) 08/24/2022 8:51 AM CDT Respiratory Rate 16 08/24/2022 8:51 AM CDT Oxygen Saturation 100% 08/24/2022 8:51 AM CDT Inhaled Oxygen Concentration - - Weight 96.1 kg (211 lb 12.8 oz) 023 10:18 AM MOTOR INSTALLER Height 170.2 cm (5' 7 ) 03/31/2023 10:1 8 AM MOTOR INSTALLER Body Mass Index 33.17 03/31/2023 10:18 AM MOTOR INSTALLER Procedures * US PELVIS W TRANSVAG NON [...] NOTIFICATION(Performed 11/02/2018) Performed for Preop examination * AR REMOVE INTRAUTERINE DEVICE(Performed 10/30/2018) Performed for Attempted [...] for Post-term , 40-42 weeks of gestation ([facility]), Encounter for supervision of normal first in third trimester ([facility]), Gestational thrombocytopenia, third trimester ([facility]) * CROSSMATCH RBC LEUKOREDUCED(Performed 11/13/2015) Performed for Post-term , 40-42 weeks of gestation ([facility]), Encounter for supervision of normal first in third trimester ([facility]), Gestational thrombocytopenia, third trimester ([facility]) * PATHOLOGY TISSUE EXAM (STL)(Performed 11/13/2015) Performed [...] W TRANSVAG NON OB (05/12/2023 12:59 PM MOTOR INSTALLER) Anatomical Region Laterality Modality Pelvis Ultrasound 05/12/2023 2:45 PM MOTOR INSTALLER Impressions 05/12/2023 2:52 PM MOTOR INSTALLER IMPRESSION: Endometrium measures about 1.1 cm. Otherwise, unremarkable ultrasound of the uterus and both ovaries, visualized only transvaginally. Edited by Jaz Pollack on 05/12/2023 2:51 PM > Interpreting Provider: Alma Lim MD on 05/12/2023 2:52 PM Narrative 05/12/2023 2:52 PM MOTOR INSTALLER ULTRASOUND OF THE PELVIS WITH TRANSVAGINAL EVALUATION [...] Comment: NO CULTURE INDICATED Test Performed at: [address] [address] NEYMAR POLLACK MD 09/10/2022 8:36 AM CDT 09/10/2022 8:36 AM CDT Jeannette Mcghee MD LAB - MICROBIOLOGY O RDERABLES Performing Organization Address City/[facility]/ZIP Co de Phone Number [address] [address] * (ABNORMAL) URINALYSIS W/MICROSCOPIC REFLEX TO CULTURE (09/10/2022 8:36 AM CDT) Only the most recent of2 resultswithin the time period is included. Pathologist [facility] Color UA DARK YELLOW YELLOW [facility] Appearance CLEAR CLEAR [facility] Specific [place] UA 1.029 1.001 - 1.035 [facility] pH [...] SEEN /LPF [facility] Comment: Test Performed at: [address] [address] NEYMAR POLLACK MD Urine URINE SPECIMEN OBTAINED BY CLEAN CATCH PROCEDURE / Unknown 09/10/2022 8:36 AM CDT 09/10/2022 8:36 AM CDT Jeannette Mcghee MD LAB - URINALYSIS ORD ERABLES Performing Organization Address [facility] Co de Phone Number [address] [address] * CULTURE URINE REFLEXED II (09/01/2022 8:10 AM CDT) [facility] Reflexive Urine Culture See Below [facility] Comment: CULTURE INDICATED - RESULTS TO FOLLOW Test Performed at: [facility] [address] NEYMAR POLLACK MD 09/01/2022 8:10 AM CDT 09/01/2022 8:11 AM CDT Victorina Leahy APRN-SHRIMP PACKER LAB - MICROBIO LOGY ORDERABLES Performing Organization Address [facility] de Phone Number [address] [address] * CULTURE URINE (09/01/2022 8:10 AM CDT) Only the most recent of2 resultswithin the time period is included. Culture [facility] Comment: CULTURE, URINE, ROUTINE Micro Number: [id number] Test Status: Final Specimen Source: Urine Specimen Quality: Adequate Result: No Growth Test Performed at: [facility] [address] NEYMAR POLLACK MD 09/01/2022 8:10 AM CDT 09/01/2022 8:11 AM CDT Victorina Leahy APRN-SHRIMP PACKER LAB - MICROBIO LOGY ORDERABLES Performing Organization Address [facility] de Phone Number [place] [phone] * US PELVIS W TRANSVAG W DOP NON OB (04/08/2022 11:39 AM MOTOR INSTALLER) Only the most recent of2 resultswithin the time period is included. Anatomical Region Laterality Modality Pelvis Ultrasound 04/08/2022 11:4 2 AM MOTOR INSTALLER Impressions 04/08/2022 11:44 AM MOTOR INSTALLER IMPRESSION: Thickening of the endometrium without discrete endometrial or uterine mass. 2.1 cm resolving hemorrhagic cyst within the ovary. > Interpreting Provider: Ar Diop MD on 04/08/2022 11:44 AM Narrative 04/08/2022 11:44 AM MOTOR INSTALLER Procedure: US PELVIS W TRANSVAG W DOP NON OB Exam Date: 04/08/2022 11:39 AM Location: [facility] INDICATION: N92.0: Excessive and frequent menstruation [...] NON OB Exam Date: 1:39 AM Location: [facility] INDICATION: N92.0: Excessive and frequent menstruation [...] Resulting Agency Comment [facility]: [facility] [address] [facility] [id number] Jeannette Mcghee MD LAB - URINALYSIS ORD ERABLES [facility] INSURANCE BILL [address] [place] [address] * (ABNORMAL) URINALYSIS REFLEX MICROSCOPIC REFLEX CULTURE (01/20/2022 3:30 PM CDT) Specific [place] UA 1.012 1.005 - 1.030 [facility] INSURANCE [...] Resulting Agency Comment Lab Testing performed at: [facility] [place] [address] [facility] [id number] Jeannette Mcghee MD LAB - URINALYSIS ORD ERABLES Performing Organization Address City/[facility]/ZIP Co de Phone Number [facility] INSURANCE BILL [address] [place] [address] * CHLAMYDIA + GC AMPLIFIED PROBE (STL) (03/03/2021 2:01 PM CDT) Chlamydia Amplified Probe Negative Negative 03/03/2021 10:40 PM CDT [facility] GC Amplified Probe Negative Negative 03/03/2021 10:40 PM CDT [facility] Microbiology PART OF UTERINE CERVIX / Unknown Collection / Unknown 03/03/2021 2:01 PM CDT 03/03/2021 2:15 PM CDT Narrative [facility] - 03/03/2021 10:40 PM CDT Results based on detection/no detection of ribosomal RNA by amplified method. Anuradha Kumar MD LAB - MICROBIOLOGY O RDERABLES [facility] [address] [place] [address], [facility] [phone] * PAP IG LB+HPV APTIMA (03/03/2021 2:01 PM CDT) Diagnosis Comment 03/07/2021 5:08 AM CDT [facility] Comment:NEGATIVE FOR INTRAEP ITHELIAL LESION OR MALIGNANCY. Specimen Adequacy Comment 5:08 AM CDT [facility] ([facility]) Comment: Satisfactory for evaluation. Endocervical and/or squamous metaplastic cells (endocervical component) are present. Performed by Comment 03/07/2021 5:08 AM CDT [facility] ([facility]) Comment:Yann Miles, Cyto technologist (ASCP) Comment . 03/07/2021 5:08 AM CDT [facility] ([facility]) Note Comment 03/07/2021 5:08 AM CDT [facility] ([facility]) Comment: The Pap smear is a screening test designed to aid in the detection of premalignant and malignant conditions of the uterine cervix. It is not a diagnostic procedure and should not be used as the sole means of detecting cervical cancer. Both false-positive and false-negative reports do occur. [facility] CPT Code Automation Comment 03/07/2021 5:08 AM CDT [facility] ([facility]) Comment: This liquid based ThinPrep(R) pap test was screened with the use of an image guided system. Human papillomavirus Aptima Negative Negative 03/07/2021 5:08 AM CDT [facility] ([facility]) Comment: This nucleic acid amplification test detects fourteen high-risk HPV types (16,18,31,33,35,39,45,51,52,56,58,59,66,68) without differentiation. Pathology/Cytolo gy PART OF UTERINE CERVIX / Unknown Collection / Unknown 03/03/2021 2:01 PM CDT 03/03/2021 2:14 PM CDT Narrative [facility] ([facility]) - 03/07/2021 5:08 AM CDT Performed at: 01 - [address] [id number] Life Educator: Joy Pyle MD, Phone: [phone] Performed at: 02 - [facility] [id number] Life Educator: Joy Pyle MD, Phone: [phone] Specimen Comment: No. of containers..01 ThinPrep Vial Anuradha Kumar MD LAB - PATHOLOGY/CYTO LOGY ORDERABLES [facility] ([facility]) [address] [place] [address] * TRICHOMONAS RAPID TEST (03/03/2021 2:01 PM CDT) Only the most recent of2 resultswithin the time period is included. Trichomonas Rapid Test Negative Negative 03/03/2021 2:45 PM CDT [facility] Microbiology VAGINAL SWAB / Unknown Collection / Unknown 03/03/2021 2:01 PM CDT 03/03/2021 2:15 PM CDT Anuradha Kumar MD LAB - MICROBIOLOGY O RDERABLES [facility] [address] [place] [address] * CARDIAC RHYTHM STRIP ORDER (11/07/2018 12:24 PM CDT) Narrative 11/07/2018 12:24 PM CDT Ordered by an unspecified provider. Scanned Document CARDIAC SERVICES ORD ERABLES * GROSS + MICRO EXAM (STL) (11/02/2018 1:38 PM CDT) Only the most recent of2 resultswithin the time period is included. Case Report Surgical Pathology Report Case: [id number] Authorizing Provider: Anuradha Kumar MD Collected: 11/02/2018 01:38 PM Ordering [facility]: [facility] Received: 11/02/2018 02:06 PM Pathologist: Sandi Vick MD Specimen: IUD, For gross only please 11/04/2018 10:16 AM CDT [facility] Final Diagnosis 1. Foreign object, intrauterine device, removal: -- Intrauterine device /AQ/jam 11/04/2018 10:16 AM CDT [facility] Clinical History 23 year old female 11/04/2018 10:16 AM CDT [facility] Gross Description The requisition and specimen [...] are taken. /KS/jam 11/04/2018 10:16 AM CDT [facility] Disclaimer All histochemical and/or immunohistochemical results are interpreted with controls that demonstrate appropriate staining reactions before reporting results. Note on use of immunocytochemistry reagents: This test was developed and its performance characteristic determined by [facility], Department of Laboratory Medicine. It has not been cleared or approved by the U.S. Food and Drug Administration (FDA). The FDA has determined that such clearance or approval is not necessary. The test is used for clinical purpose. It should not be regarded as investigational or for research. This laboratory is certified to perform high complexity testing. 11/04/2018 10:16 AM CDT [facility] Embedded Images 11/04/2018 10:16 AM CDT [facility] Pathology/Cytolo gy INTRAUTERINE CONTRACEPTIVE DEVICE SUBMITTED SPECIMEN / Unknown 11/02/2018 1:38 PM CDT 11/02/2018 2:06 PM CDT Anuradha Kumar MD LAB - PATHOLOGY/CYTO LOGY ORDERABLES [facility] [address] [place] [id number] * HCG URINE QUALITATIVE - POCT (IP) INTERFACED (11/02/2018 12:09 PM CDT) HCG Qual Urine Negative Negative 11/02/2018 12:11 PM CDT [facility] Urine URINE / Unknown 11/02/2018 1 2:09 PM CDT 11/02/2018 12:11 PM CDT Anuradha Kumar MD LAB - POINT OF CARE ORDERABLES [facility] [address] [place] [address] * HCG URINE QUAL POCT NOTIFICATION (11/02/2018 11:59 AM CDT) Comment Notification Label Only - See Separate Report 11/02/2018 1:00 PM CDT [facility] Urine URINE / Unknown 11/02/2018 1 1:59 AM CDT 11/02/2018 11:59 AM CDT Carlos Pina MD LAB - URINALYSIS OR DERABLES Performing Organization Address City/[facility]/ZIP Co de Phone Number [facility] [address] [place] [address] * AR REMOVE INTRAUTERINE DEVICE (10/30/2018 6:24 PM CDT) Narrative Lisa Contreras MD - 10/30/2018 6:24 PM CDT Lisa Contreras MD 10/30/2018 6:24 PM See PN Lisa Contreras MD PROCEDURE/MINOR SURG ICAL ORDERABLES * HCG URINE QUALITATIVE - POINT OF CARE (AMB) (10/28/2018) Pathologist [facility] HCG Qual Urine Negative Negative QC Verified Yes Yes Urine URINE / Unknown 10/28/2018 Lisa Contreras MD LAB - POINT OF CARE ORDERABLES * HIV-1 HIV-2 ANTIBODY + HIV P24 AG PANEL (01/07/2018 1:40 PM CDT) Only the most recent of2 resultswithin the time period is included. Pathologist [facility] HIV1/2 Ab + P24 Ag Non Reactive Non Reactive 01/07/2018 4:39 PM CDT [facility] Blood BLOOD SPECIMEN / Unknown Venipuncture / Unknown 01/07/2018 1:40 PM CDT 01/07/2018 1:47 PM CDT Narrative [facility] - 01/07/2018 4:39 PM CDT No Laboratory evidence of HIV infection. Terrie Saez MD LAB - CHEMISTRY HUGO JENKINS [facility] [address] [place] [address] * RPR (01/07/2018 1:40 PM CDT) Only the most recent of2 resultswithin the time period is included. RPR Non Reactive Non Reactive 01/08/2018 11:32 AM CDT [facility] Blood BLOOD SPECIMEN / Unknown Venipuncture / Unknown 01/07/2018 1:40 PM CDT 01/07/2018 1:47 PM CDT Terrie Saez MD LAB - CHEMISTRY HUGO GREGORY Performing Organization Address City/[facility]/ZIP Co de Phone Number [facility] [address] [place] [address] * CHLAMYDIA + GC AMPLIFIED PROBE (01/07/2018 1:40 PM CDT) Only the most recent of2 resultswithin the time period is included. [facility] Chlamydia Amplified Probe Negative Negative 01/10/2018 10:24 AM CDT [facility] GC Amplified Probe Negative Negative 01/10/2018 10:24 AM CDT [facility] Microbiology ENTIRE ENDOCERVIX / Unknown Collection / Unknown 01/07/2018 1:40 PM CDT 01/07/2018 1:47 PM CDT Narrative [facility] - 01/10/2018 10:24 AM CDT Results based on detection/no detection of ribosomal RNA by amplified method. Terrie Saez MD LAB - MICROBIOLOGY O RDERABLES Performing Organization Address City/[facility]/ZIP Co de Phone Number [facility] [address] [phone] * HEPATITIS SCREEN ACUTE (01/07/2018 1:40 PM CDT) Pathologist [facility] HAV Antibody IgM Non Reactive Non Reactive 01/07/2018 3:12 PM CDT [facility] HBsAg Non Reactive Non Reactive 01/07/2018 3:12 PM CDT [facility] HBc Antibody IgM Non Reactive Non Reactive 01/07/2018 3:12 PM CDT [facility] HCV Antibody Screen Non Reactive Non Reactive 01/07/2018 3:12 PM CDT [facility] HCV S/C Ratio 0.05 0.00 - 0.79 01/07/2018 3:12 PM CDT [facility] Comment: Hzyyzn-wx-gbinod ratio (S/CO) <0.80: Non Reactive Blood BLOOD SPECIMEN / Unknown Venipuncture / Unknown 01/07/2018 1:40 PM CDT 01/07/2018 1:47 PM CDT Narrative [facility] - 01/07/2018 3:12 PM CDT Non Reactive - Antibodies to Hepatitis C virus (HCV) were not detected, result does not exclude early acute HCV infection. Non Reactive - Antibodies to Hepatitis C virus (HCV) were not detected, result does not exclude early acute HCV infection. Terrie Saez MD LAB - CHEMISTRY ORDE GREGORY [facility] [address] [place] [phone] * HCG URINE QUALITATIVE - POCT (IP) [facility] (01/29/2017) Test Urine [facility] Comment:neg Urine specimen (specimen) 01/29/2017 Lisa Contreras MD LAB - POINT OF CARE ORDERABLES Performing Organization Address [facility]/ZIP Co de Phone Number [facility] * (ABNORMAL) PAP LB RFLX HPV ASCU (12/29/2016 10:29 AM CDT) Diagnosis Comment(A) 01/12/2017 8:11 PM CDT [facility] ([facility]) Comment: EPITHELIAL CELL ABNORMALITY. ATYPICAL SQUAMOUS CELLS OF UNDETERMINED SIGNIFICANCE. Recommendation Comment(A) 01/12/2017 8:11 PM CDT [facility] ([facility]) Comment:Suggest follow up as clinically appropriate. Specimen Adequacy Comment 017 8:11 PM CDT [facility] ([facility]) Comment: Satisfactory for evaluation. Endocervical and/or squamous metaplastic cells (endocervical component) are present. Areas of partially obscuring blood are present. Performed by Comment 01/12/2017 8:11 PM CDT [facility] ([facility]) Comment:Giselle Bateman, Cyto technologist (ASCP) Electronically Signed by Comment 01/12/2017 8:11 PM CDT [facility] ([facility]) Comment:Ann Santos MD, Pa thologist Comment . 01/12/2017 8:11 PM CDT [facility] Pathologist Provided ICD10 Comment 01/12/2017 8:11 PM CDT [facility] ([facility]) Comment:R87.610 Note Comment 01/12/2017 8:11 PM CDT [facility] Comment: The Pap smear is a screening test designed to aid in the detection of premalignant and malignant conditions of the uterine cervix. It is not a diagnostic procedure and should not be used as the sole means of detecting cervical cancer. Both false-positive and false-negative reports do occur. Note Comment 01/12/2017 8:11 PM CDT [facility] ([facility]) Comment:See below for HPV te sting results. Pathology/Cytolo gy PART OF UTERINE CERVIX / Unknown Collection / Unknown 12/29/2016 10:29 AM CDT 12/29/2016 10:43 AM CDT Narrative [facility] ([facility]) - 01/12/2017 8:11 PM CDT Performed at: [address] [place] [id number] Life Educator: Joy Pyle MD, Phone: [phone] Specimen Comment: Source.............Cervix Specimen Comment: LMP / Prev Treat...None Specimen Comment: No. of containers..01 ThinPrep Vial Lisa Contreras MD LAB - PATHOLOGY/CYTO LOGY ORDERABLES [facility] ([facility] [address] [place] [address] * HPV DNA PROBE HIGH RISK (12/29/2016 10:29 AM CDT) Human papillomavirus High Risk Negative Negative 01/12/2017 8:11 PM CDT [facility] Comment: This high-risk HPV test detects thirteen high-risk types (16/18/31/33/35/39/45/51/52/56/58/59/68) without differentiation. Pathology/Cytolo gy PART OF UTERINE CERVIX / Unknown Collection / Unknown 12/29/2016 10:29 AM CDT 12/29/2016 10:43 AM CDT Narrative [facility] ([facility]) - 01/12/2017 8:11 PM CDT Performed at: [address] [id number] Life Educator: Joy Pyle MD, Phone: [phone] Lisa Contreras MD LAB - MICROBIOLOGY O NORMA [facility] ([facility]) [address] [place] [address] * PATHOLOGY/GENETICS HISTORICAL-ONBASE (12/29/2016) 12/29/2016 Historical Provider LAB - CHEMISTRY O [place]MA [facility] [address] [place] [address], [facility] * (ABNORMAL) CBC W AUTO DIFFERENTIAL (12/24/2015 1:44 PM CDT) Only the most recent of7 resultswithin the time period is included. WBC 3.0(L) 4.4 - 10.7 x10E9/L 12/24/2015 2:00 PM CDT [facility] WBC Corrected x10E9/L 12/24/2015 2:00 PM CDT [facility] RBC 4.38 3.80 - 5.20 x10E12/L 12/24/2015 2:00 PM CDT [facility] Hemoglobin 12.3 12.0 - 15.6 gm/dL 12/24/2015 2:00 PM CDT [facility] Hematocrit 38.6 35.9 - 45.5 % 12/24/2015 2:00 PM CDT [facility] MCV 88.1 80.7 - 98.3 fl 12/24/2015 2:00 PM CDT [facility] MCH 28.1 26.7 - 34.0 pg 12/24/2015 2:00 PM CDT [facility] MCHC 31.9 30.8 - 35.9 gm/dL 12/24/2015 2:00 PM CDT [facility] Platelet Count 149(L) 153 - 416 x10E9/L 12/24/2015 2:00 PM CDT [facility] RDW-CV 13.0 12.1 - 14.9 % 12/24/2015 2:00 PM T [facility] MPV 10.8 9.4 - 12.9 fl 12/24/2015 2:00 PM T [facility] Neutrophils % 37.4(L) 44.0 - 73.0 % 12/24/2015 2:00 PM T [facility] Lymphocytes % 48.5(H) 20.0 - 43.0 % 12/24/2015 2:00 PM T [facility] Monocytes % 5.4 5.0 - 13.0 % 12/24/2015 2:00 PM T [facility] Eosinophils % 8.1(H) 0.0 - 6.0 % 12/24/2015 2:00 PM [facility] Basophils % 0.3 0.0 - 2.0 % 12/24/2015 2:00 PM [facility] Immature Granulocytes 0.3 0 - 1 % 12/24/2015 2:00 PM [facility] Neutrophil Absolute 1.11(L) 2.01 - 7.14 x10E9/L 12/24/2015 2:00 PM T [facility] Lymphocytes Absolute 1.44 1.07 - 3.94 x10E9/L 12/24/2015 2:00 PM T [facility] Monocytes Absolute 0.16(L) 0.26 - 1.07 x10E9/L 12/24/2015 2:00 PM T [facility] Eosinophils Absolute 0.24 0 - 0.47 x10E9/L 12/24/2015 2:00 PM [facility] Basophils Absolute 0.01 0 - 0.08 x10E9/L 12/24/2015 2:00 PM [facility] Immature Granulocytes Absolute 0.01 0.00 - 0.06 x10E9/L 12/24/2015 2:00 PM [facility] nRBC Auto 0 /100 WBC 12/24/2015 2:00 PM [facility] Blood BLOOD SPECIMEN / Unknown Venipuncture / Unknown 12/24/2015 1:44 PM CDT 12/24/2015 1:52 PM CDT Ekaterina Joseph POLICY ADVISER-SHRIMP PACKER LAB - HEMATOLO GY ORDERABLES Performing Organization Address [facility]/ZIP Co de Phone Number [facility] [address] [place] [address] * HCG URINE QUALITATIVE - POINT OF CARE (IP) (12/24/2015 1:29 PM CDT) HCG Qual Urine Negative Negative [facility] POCT TESTING QC Verified Yes Yes [facility] POC T TESTING Urine specimen (specimen) URINE / Unknown 12/24/2015 1:29 PM CDT Roula Moses POLICY ADVISER-SHRIMP PACKER LAB - POINT OF CA RE ORDERABLES Performing Organization Address [facility] Co de Phone Number [facility] POCT TESTING [address] [place] [address] * LAB RESULTS ORDER (11/18/2015 10:36 PM [...] Random 2.7 ug/mL 11/14/2015 1:14 AM CDT [facility] Blood BLOOD SPECIMEN / Unknown Venipuncture / Unknown 11/14/2015 12:24 AM CDT 11/14/2015 1:02 AM CDT Shanice Sepulveda MD LAB - CHEMISTRY O RDERABLES Performing Organization Address City/[facility]/ZIP Co de Phone Number [facility] [address] [place] [address] * CROSSMATCH RBC (11/13/2015 6:45 AM CDT) Only the most recent of2 resultswithin the time period is included. Pathologist [facility] Unit Donor # [id number] 11/15/2015 7:02 AM CDT [facility] Product Code E0336 11/15/2015 7:02 AM CDT [facility] Unit Description E0336 RBC, LR, CPD>AS1 11/15/2015 7:02 AM CDT [facility] ABO Donor Type A 11/15/2015 7:02 AM CDT [facility] Rh Type Unit POS 11/15/2015 7:02 AM CDT [facility] Crossmatch Interpretation Compatible 11/15/2015 7:02 AM T [facility] Unit Status Returned 11/15/2015 7:02 AM T [facility] Miscellaneous samples (specimen) BLOOD SPECIMEN / Unknown Venipuncture / Unknown 11/13/2015 6:45 AM CDT 11/13/2015 6:50 AM CDT Carlos Pina MD LAB - BLOOD BANK OR DERABLES [facility] [facility] [address] * (ABNORMAL) BLOOD GASES CORD GALINDO (ISTAT) (11/13/2015 6:26 AM CDT) [facility] pH Cord Venous POCT 7.26(L) 7.28 - 7.40 pH 11/13/2015 6:33 AM T [facility] pCO2 Cord Venous POCT 46(H) 35 - 45 mmHg 11/13/2015 6:33 AM [facility] pO2 Cord Venous POCT 21(L) 22 - 33 mmHg 11/13/2015 6:33 AM T [facility] HCO3 Cord Arterial POCT 21(L) 22 - 24 mmol/L 11/13/2015 6:33 AM [facility] BE Cord Venous POCT Calc -6 -6 - 2 mmol/L 11/13/2015 6:33 AM [facility] TCO2 Cord Venous POCT 22 22 - 30 mmol/L 11/13/2015 6:33 AM [facility] O2 Saturation % Cord Venous Calc POCT 28 % 11/13/2015 6:33 AM CDT [facility] Site CORD GALINDO 11/13/2015 6:33 AM CDT [facility] Sample iSTAT CORD V 11/13/2015 6:33 AM CDT [facility] Blood CORD BLOOD SPECIMEN / Unknown 11/13/2015 6:26 AM CDT 11/13/2015 6:33 AM CDT Shanice Sepulveda MD LAB - POINT OF CA RE ORDERABLES Performing Organization Address [facility] Co de Phone Number [facility] [address] [place] [address] * (ABNORMAL) BLOOD GASES CORD ART (ISTAT) (11/13/2015 6:22 AM CDT) pH Cord Arterial POCT 7.17(L) 7.20 - 7.34 pH 11/13/2015 6:33 AM [facility] pCO2 Cord Arterial POCT 61.5(H) 45 - 55 mmHg 11/13/2015 6:33 AM T [facility] pO2 Cord Arterial POCT <5(LL) 12 - 25 mmHg 11/13/2015 6:33 AM T [facility] HCO3 Cord Arterial POCT 22.5 15 - 29 mmol/L 11/13/2015 6:33 AM T [facility] BE Cord Arterial POCT -7(L) -2.9 - 8.3 mmol/L 11/13/2015 6:33 AM T [facility] TCO2 Cord Arterial POCT 24 mmol/L 11/13/2015 6:33 AM T [facility] O2 Saturation Cord Art % Calc POCT % 11/13/2015 6:33 AM CDT [facility] Site CORD ART 11/13/2015 6:33 AM CDT [facility] Sample iSTAT CORD A 11/13/2015 6:33 AM T [facility] Blood CORD BLOOD SPECIMEN / Unknown 11/13/2015 6:22 AM CDT 11/13/2015 6:33 AM CDT Shanice Sepulveda MD LAB - POINT OF CA RE ORDERABLES [facility] [address] [place] [phone] * NEURAXIAL BLOCK (11/12/2015 2:50 PM CDT) [...] CDT) ABO A 11/11/2015 11:24 PM CDT [facility] Rh Type Positive 11/11/2015 11:24 PM CDT [facility] Comment:History check perfor med. Retype required. Antibody Screen Negative 11/11/2015 11:24 PM CDT [facility] Miscellaneous samples (specimen) BLOOD SPECIMEN / Unknown Venipuncture / Unknown 11/11/2015 10:03 PM CDT 11/11/2015 10:41 PM CDT Elzbieta Momin MD LAB - BLOOD BANK ORD ERABLES Performing Organization Address [facility] Co de Phone Number [facility] [address] [place] [address] * GLUCOSE PROTEIN KETONE URINE - POINT [...] POINT OF CARE ORDERABLES Performing Organization Address [facility] Co de Phone Number [facility] [address] [place] [address] * (ABNORMAL) PLATELET COUNT AUTO (10/23/2015 9:19 AM CDT) Platelet Count 109(L) 153 - 416 x10E9/L 10/23/2015 9:29 AM CDT [facility] Blood BLOOD SPECIMEN / Unknown Venipuncture / Unknown 10/23/2015 9:19 AM CDT 10/23/2015 9:25 AM CDT Elzbieta Momin MD LAB - HEMATOLOGY ORD ERABLES Performing Organization Address [facility]/ZIP Co de Phone Number [facility] [address] [place] [address] * CULTURE STREP B (10/09/2015 9:00 AM CDT) Culture Negative for Beta Hemolytic Streptococcus Group B TAHIRA 10/12/2015 9:05 AM CDT [facility] MICROBIOLOGY Microbiology MISCELLANEOUS SAMPLES / Unknown Collection / Unknown 10/09/2015 9:00 AM CDT 10/09/2015 9:04 AM CDT Katelynn Alvarado MD LAB - MICROBIOLOGY O RDERABLES Performing Organization Address City/[facility]/ZIP Co de Phone Number [facility] MICROBIOLOGY [address] [phone] * GLUCOSE CHALLENGE (08/07/2015 9:19 AM CDT) [facility] Glucose Challenge 77 64 - 140 mg/dL 08/07/2015 10:33 AM CDT [facility] Glucose Challenge Time 08/07/2015 10:33 AM CDT [facility] Blood BLOOD SPECIMEN / Unknown Venipuncture / Unknown 08/07/2015 9:19 AM CDT 08/07/2015 9:55 AM CDT Michelle Bingham MD LAB - CHEMISTRY HUGO JENKINS Performing Organization Address [facility] Co de Phone Number [facility] [address] [place] [address] * SONOGRAM - COMPLETE (08/07/2015 8:47 AM CDT) Only the most recent of3 resultswithin the time period is included. Anatomical Region Laterality Modality Other 08/07/2015 8:47 AM CDT Narrative 08/07/2015 10:52 AM CDT [facility] PHONE: FAX: Pat. Name: PAULINE GALLEGO Pat. No: [id number] Study Date: 08/07/2015 8:47am , Age: 09 1995, 20 Pregnancies: 1 Height: 67 in Weight: 220 lb LMP: 01/21/2015 GA by LMP: 28w2d GA by 1st: 27w2d GA by US: 26w6d GA Selected: 27w2d (From First S) DAMIÁN: 11/04/2015 Referring MD: MD NATALIIA Nonprofit Director: Saima Santiago RDMS/LIVE CPT4: 12809 BMI: 34.45 Hist/Ind: Small for gestational age MEASUREMENTS & AGE GROWTH EVALUATION Measurement GA Range Srce %for GA Ratios ----- ---- ------- BPD 6.7 cm 27w0d (75y0f-20p1o) Hadl BPD 45% FL/BPD 0.77 (0.71 - 0.87) HC 24.6 cm 26w5d (20g9z-39k2s) Hadl HC 37% FL/AC 0.24 (0.20 - 0.24) AC 21.9 cm 26w3d (42v0v-66o1c) Hadl AC 31% HC/AC 1.12 (1.00 - 1.18) FL 5.2 cm 27w4d (18k8x-24t6n) Hadl FL 55% CI 0.76 (0.70 - 0.86) HL 4.5 cm 26w6d (28o6d-90s6i) Adi HL 42% GA for sonogram 26w6d (06b5r-34s0r) Weight Estimate: based on (BPD,HC,AC,FL) Avg Weight: [...] <Electronic Signature> 08/07/2015 10:48am Ronaldo Truong MD [facility] ORDERABLES Care Teams Jigger Machine Operator Relationship Specialty Start Date End Date [facility] PCP - General 11/12/22
--- OUTSIDE RECORDS SUMMARY | 2024-06-20 09:18 | XMS_ITS | Encounter Summary ---
Author Organization [facility] Address [address] [place] [address] Phone Care Team Providers Care Desktop Architect Name Role Phone No, Physician Primary Care Provider [phone] Miscellaneous, Not In File Primary Care Provider Unavailable No, Physician Primary Care Provider [phone] Karen Mosley MD Primary Care Provider [phone] No, Physician Primary Care Provider [phone] Encounter Details Date Type Department Care Team (Late st Contact Info) Description 09/01/2018 Telephone [facility] Pain Management [address] [place] [phone] Penelope Alan Social History Tobacco Use Types Packs/Day Years Used Date Smoking Tobacco: Never Smokeless Tobacco: Never Alcohol Use Standard Drinks/Week Comments No 0 (1 standard drink = 0.6 oz pur e alcohol) Comments Unknown Sex and Gender Information Value Date Recorded Sex Assigned at Not on file Legal Sex Female 11:25 AM 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
--- OUTSIDE RECORDS SUMMARY | 2024-06-20 09:18 | XMS_ITS | Clinical Summary ---
Author Organization [facility] Address [address] [place] [address] Care Team Providers Care Enterprise Architect Manager Name Role Phone Unavailable Primary Care Provider [...]
--- OUTSIDE RECORDS SUMMARY | 2024-06-20 09:18 | XMS_ITS | Referral Summary ---
Author Organization [facility] Address [facility] [place] [address] Care Team Providers Care Tenant Selector Name Role Phone No, Physician Primary Care Provider [phone] Encounters Date Type Department Care Team Description 05/31/2024 12:15 PM VISCOSE DEPARTMENT WORKER [facility] [address] [place] [id number] Iron deficiency anemia, unspecified iron deficiency anemia type (Primary Dx) 05/18/2024 Telephone [facility] Hematology [address] [place] [phone] Shanon Ortiz RN 05/18/2024 Orders Only [facility] Hematology [address] [place] [phone] Shanon Ortiz RN Iron deficiency anemia, unspecified iron deficiency anemia type (Primary Dx) 05/16/2024 Orders Only [facility] Hematology [address] [place] [phone] Nasra Anguiano Iron deficiency anemia, unspecified [...] (05/26/2018): Added automatically from request for surgery [id number] 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[facility]) 6 Overview (07/10/2018): Overview: Platelets 132 on [...] on file Legal Sex Female 11:25 AM VISCOSE DEPARTMENT WORKER Gender Identity Not on file Sexual Orientation Not on file Last Filed Vital Signs Vital Sign Reading Time Taken Comments Blood Pressure 103/68 05/31/2024 3:00 PM VISCOSE DEPARTMENT WORKER Pulse 93 05/31/2024 3:00 PM VISCOSE DEPARTMENT WORKER Temperature 37 C (98.6 F) 05/31/2024 3:00 PM VISCOSE DEPARTMENT WORKER Respiratory Rate 16 05/31/2024 3:00 PM VISCOSE DEPARTMENT WORKER Oxygen Saturation 100% 05/31/2024 3:00 PM VISCOSE DEPARTMENT WORKER Inhaled Oxygen Concentration - - Weight 97.4 kg (214 lb 12.8 oz) 025 12:18 PM VISCOSE DEPARTMENT WORKER Height 170.2 cm (5' 7 ) 02/15/2024 9:39 AM CDT Body Mass Index 33.64 02/15/2024 9:39 AM CDT Plan of Treatment Not on file Procedures Procedure Name Priority Date/Time Associated Diagnosis Comments IRON PROFILE W/ IBC Routine 05/17/2024 3 :04 PM VISCOSE DEPARTMENT WORKER Iron deficiency anemia, unspecified iron deficiency anemia type RETICULOCYTES Routine 05/17/2024 3:04 PM VISCOSE DEPARTMENT WORKER Iron deficiency anemia, unspecified iron deficiency anemia type FERRITIN Routine 05/17/2024 3:04 PM VISCOSE DEPARTMENT WORKER Iron deficiency anemia, unspecified iron deficiency anemia type CBC WITH AUTO DIFFERENTIAL Routine 05/17/2024 3:04 PM VISCOSE DEPARTMENT WORKER Iron deficiency anemia, unspecified iron deficiency anemia type PAP ONLY Routine 12/19/2019 12:00 PM CDT from Last 3 Months or Most Recently Relevant to Health Maintenance Results * (ABNORMAL) Iron profile w/ IBC (05/17/2024 3:04 PM VISCOSE DEPARTMENT WORKER) Pathologist [facility] Iron 22(L) 40 - 190 mcg/dL [facility] TIBC 370 250 - 450 mcg/dL (calc) [facility] Iron saturation 6(L) 16 - 45 % (calc) [facility] Blood 05/17/2024 3:04 PM VISCOSE DEPARTMENT WORKER 05/17/2024 3:04 PM VISCOSE DEPARTMENT WORKER us Lisa Eagle DATA CAPTURE CLERK LAB BLOOD ORDERABLES F inal Result [facility] [address] [place] [address] * (ABNORMAL) CBC with auto differential (05/17/2024 3:04 PM VISCOSE DEPARTMENT WORKER) Pathologist [facility] WBC 4.3 3.8 - 10.8 Thousand/u L [...] [facility] Blood 05/17/2024 3:04 PM VISCOSE DEPARTMENT WORKER 05/17/2024 3:04 PM VISCOSE DEPARTMENT WORKER Lisa Eagle NP LAB BLOOD ORDERABLES F inal Result [facility] [address] [place] [address] * Reticulocyte Count (05/17/2024 3:04 PM VISCOSE DEPARTMENT WORKER) Reticulocyte count, automated 0.9 % [facility] Reticulocyte, absolute 37,260 20,000 - 80,000 cells/uL [facility] Blood 05/17/2024 3:04 PM VISCOSE DEPARTMENT WORKER 05/17/2024 3:04 PM VISCOSE DEPARTMENT WORKER Lisa Tyesha Eagle DATA CAPTURE CLERK LAB BLOOD ORDERABLES F inal Result Performing Organization Address City/[facility]/ZIP Co de Phone Number [facility] [address] [facility] [place] [address] * (ABNORMAL) Ferritin (05/17/2024 3:04 PM VISCOSE DEPARTMENT WORKER) Ferritin 8(L) 16 - 154 ng/mL [facility] Comment: Your request to have a duplicate copy faxed has been acknowledged. Queued to: [id number] Blood 05/17/2024 3:04 PM VISCOSE DEPARTMENT WORKER 05/17/2024 3:04 PM VISCOSE DEPARTMENT WORKER Lisa Eagle DATA CAPTURE CLERK LAB BLOOD ORDERABLES F inal Result Performing Organization Address [facility] Co de Phone Number [facility] [address] [place] [address] * Pap Only (12/19/2019 12:00 PM CDT) 12/19/2019 12:0 0 PM CDT 12/19/2019 12:41 PM CDT Narrative 12/22/2019 2:30 PM CDT EPIC results best viewed via link to PDF [facility] Lisa Moon [facility] [place] [address] CYTOPATHOLOGY REPORT FINAL Patient Name: RASTA WARE Gender: F : 1995 (Age: 24) Address: [address] [place] [address] Hospital #: [id number] Service: ENGINEERING LAB TECHNICIAN Location: [facility] Patient Type: [facility] Ref Lab Taken: 12/19/2019 Received: 12/19/2019 [...] determined by the Surgical Pathology Department at [facility] as part of an ongoing quality officer program and in compliance with federally mandated [...] determined by the Surgical Pathology Department of [facility]. It has not been cleared or approved by the U. S. Food and Drug Administration. Mary Faulkner MD LAB CYTOLOGY ORDERABLES Fin al Result from Last 3 Months or Most Recently Relevant to Health Maintenance Insurance [facility] [employer] Address: [id number] [place] [address] [facility]PA [facility] Advance Directives For more information, please contact: [phone] * Full Code (Latest Code Status on File) Date Activated Date Inactivated Comments 12/16/2018 8:56 PM 12/20/2018 6:08 PM * Full Code Date Activated Date Inactivated Comments 07/06/2018 2:35 PM 07/06/2018 8:21 PM Care Teams Tenant Selector Relationship Specialty Start Date End Date No, Physician PCP - General 01/03/20
--- OUTSIDE RECORDS SUMMARY | 2024-06-20 09:18 | XMS_ITS | Clinical Summary ---
Author Organization [facility] Address [address] [place] [address] Care Team Providers Care Dietary Aid Name Role Phone Unavailable Primary Care Provider Unavailabl e Social History Tobacco Use Types Packs/Day Years Used Date Smoking Tobacco: Never Assessed Comments Unknown Sex and Gender Information Value Date Recorded Sex Assigned at Not on file Legal Sex Female 11:04 AM APPLICATION DEVELOPMENT INTERN Gender Identity Not on file Sexual Orientation [...]
--- OUTSIDE RECORDS SUMMARY | 2024-06-20 09:18 | XMS_ITS | Clinical Summary ---
Author Organization [facility] Address [address] [place] [address] Care Team Providers Care Mattress Stripper Name Role Phone No, Physician Primary Care Provider [phone] Allergies Active Allergy Reactions Criticality Noted Date [...] (05/26/2018): Added automatically from request for surgery [id number] 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[facility]) 6 Overview (07/10/2018): Overview: Platelets 132 on [...] Department Care Team Description 05/31/2024 12:15 PM X RAY PHYSICIAN [facility] [address] [place] [address] Iron deficiency anemia, unspecified iron deficiency anemia type (Primary Dx) 05/18/2024 Telephone [facility] Hematology [address] [place] [phone] Shanon Ortiz RN 05/18/2024 Orders Only [facility] Hematology [address] [place] [phone] Shanon Ortiz RN Iron deficiency anemia, unspecified iron deficiency anemia type (Primary Dx) 05/16/2024 Orders Only [facility] Hematology [address] [place] [phone] Nasra Anguiano Iron deficiency anemia, unspecified [...] on file Legal Sex Female 11:25 AM X RAY PHYSICIAN Gender Identity Not on file Sexual Orientation Not on file Obstetrics History Para Term AB IAB SAB Ectopic Multiple Livin g Live Births 1 Date Outcome GA Total Labor Labor/2nd/3rd Weight Sex Type Anes PTL Clau A1 A5 Name Clin Last Filed Vital Signs Vital Sign Reading Time Taken Comments Blood Pressure 103/68 05/31/2024 3:00 PM X RAY PHYSICIAN Pulse 93 05/31/2024 3:00 PM X RAY PHYSICIAN Temperature 37 C (98.6 F) 05/31/2024 3:00 PM X RAY PHYSICIAN Respiratory Rate 16 05/31/2024 3:00 PM X RAY PHYSICIAN Oxygen Saturation 100% 05/31/2024 3:00 PM X RAY PHYSICIAN Inhaled Oxygen Concentration - - Weight 97.4 kg (214 lb 12.8 oz) 025 12:18 PM X RAY PHYSICIAN Height 170.2 cm (5' 7 ) 02/15/2024 [...] W/ IBC Routine 05/17/2024 3 :04 PM X RAY PHYSICIAN Iron deficiency anemia, unspecified iron deficiency anemia type RETICULOCYTES Routine 05/17/2024 3:04 PM X RAY PHYSICIAN Iron deficiency anemia, unspecified iron deficiency anemia type FERRITIN Routine 05/17/2024 3:04 PM X RAY PHYSICIAN Iron deficiency anemia, unspecified iron deficiency anemia type CBC WITH AUTO DIFFERENTIAL Routine 05/17/2024 3:04 PM X RAY PHYSICIAN Iron deficiency anemia, unspecified iron deficiency anemia type PAP ONLY Routine 12/19/2019 12:00 PM CDT from Last 3 Months or Most Recently Relevant to Health Maintenance Results * (ABNORMAL) Iron profile w/ IBC (05/17/2024 3:04 PM X RAY PHYSICIAN) Pathologist [facility] Iron 22(L) 40 - 190 mcg/dL [facility] TIBC 370 250 - 450 mcg/dL (calc) [facility] Iron saturation 6(L) 16 - 45 % (calc) [facility] Blood 05/17/2024 3:04 PM X RAY PHYSICIAN 05/17/2024 3:04 PM X RAY PHYSICIAN us Lisa Eagle APRICOT PACKER LAB BLOOD ORDERABLES F inal Result [facility] [address] [facility] [place] [address] * (ABNORMAL) CBC with auto differential (05/17/2024 3:04 PM X RAY PHYSICIAN) Pathologist [facility] WBC 4.3 3.8 - 10.8 Thousand/u L [...] [facility] Blood 05/17/2024 3:04 PM X RAY PHYSICIAN 05/17/2024 3:04 PM X RAY PHYSICIAN Lisa Eagle APRICOT PACKER LAB BLOOD ORDERABLES F inal Result Performing Organization Address [facility] de Phone Number [facility] [address] [place] [address] * Reticulocyte Count (05/17/2024 3:04 PM X RAY PHYSICIAN) [facility] Reticulocyte count, automated 0.9 % [facility] Reticulocyte, absolute 37,260 20,000 - 80,000 cells/uL [facility] Blood 05/17/2024 3:04 PM X RAY PHYSICIAN 05/17/2024 3:04 PM X RAY PHYSICIAN Lisa Eagle APRICOT PACKER LAB BLOOD ORDERABLES F inal Result Performing Organization Address [facility] de Phone Number [facility] [address] [place] [address] * (ABNORMAL) Ferritin (05/17/2024 3:04 PM X RAY PHYSICIAN) Pathologist [facility] Ferritin 8(L) 16 - 154 ng/mL [facility] Comment: Your request to have a duplicate copy faxed has been acknowledged. Queued to: [id number] Blood 05/17/2024 3:04 PM X RAY PHYSICIAN 05/17/2024 3:04 PM X RAY PHYSICIAN Lisa Eagle APRICOT PACKER LAB BLOOD ORDERABLES F inal Result [facility] [address] [place] [address] * Pap Only (12/19/2019 12:00 PM CDT) 12/19/2019 12:0 0 PM CDT 12/19/2019 12:41 PM CDT Narrative 12/22/2019 2:30 PM CDT EPIC results best viewed via link to PDF [facility] Lisa Moon [facility] [place] [address] CYTOPATHOLOGY REPORT FINAL Patient Name: PAULINE WARE Gender: F : 1995 (Age: 24) Address: [address] [place] [address] Hospital #: [id number] Service: UPPER EXTREMITY SURGEON Location: [facility] Patient Type: [facility] Ref Lab Taken: 12/19/2019 Received: 12/19/2019 [...] by the Surgical Pathology Department at [facility] as part of an ongoing personnel quality assurance auditor program and in compliance with federally mandated [...] by the Surgical Pathology Department of [facility]. It has not been cleared or approved by the U. S. Food and Drug Administration. Mary Faulkner MD LAB CYTOLOGY ORDERABLES Fin al Result from Last 3 Months or Most Recently Relevant to Health Maintenance Insurance [employer] Address: [facility] [id number] [place] [id number] [facility] IDPA [facility] Advance Directives For more information, please contact: [phone] * Full Code (Latest Code Status on File) Date Activated Date Inactivated Comments 12/16/2018 8:56 PM 12/20/2018 6:08 PM * Full Code Date Activated Date Inactivated Comments 07/06/2018 2:35 PM 07/06/2018 8:21 PM Care Teams Mattress Stripper Relationship Specialty Start Date End Date No, Physician PCP - General 01/03/20
--- OUTSIDE RECORDS SUMMARY | 2024-06-20 09:18 | XMS_ITS | Encounter Summary ---
Author Organization [facility] Address [address] [place] [address] Phone Care Team Providers Care Sleeping Car Conductor Name Role Phone No, Physician Primary Care Provider [phone] Miscellaneous, Not In File Primary Care Provider Unavailable No, Physician Primary Care Provider [phone] Karen Mosley MD Primary Care Provider [phone] No, Physician Primary Care Provider [phone] Encounter Details Date Type Department Care Team (Late st Contact Info) Description 07/20/2018 Documentation [facility] Pain Management [facility] [place] [address] Penelope Alan Social History Tobacco Use Types Packs/Day Years Used Date Smoking Tobacco: Never Smokeless Tobacco: Never Alcohol Use Standard Drinks/Week Comments No 0 (1 standard drink = 0.6 oz pur e alcohol) Comments Unknown Sex and Gender Information Value Date Recorded Sex Assigned at Not on file Legal Sex Female 11:25 AM 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
--- OUTSIDE RECORDS SUMMARY | 2024-06-20 09:18 | XMS_ITS | Referral Summary ---
Author Organization [facility] [employer] Address [address] [place] [address] Care Team Providers Care Flight Engineer Name Role Phone Pcp, Quin Mejia Im-Fm Primary Care Provider Unavailable Source Comments [facility],non-owned Affiliates and Associated Physician Practices is amultiple site organization consisting of ambulatory clinics and hospital sitesin [place], [place], [place] and [place]. This disclosure is being madepursuant to the Care Everywhere program and may not contain all information available regarding this patient. Last updated 18.[facility] Allergies Active Allergy Reactions Criticality Noted Date [...] 03/03/2021 Immunizations Name Administration Dates Next Due [employer] primary monoval ent 12+ yr 0.3mL Purple [...] Comments Blood Pressure 116/62 03/31/2023 10:18 AM CEMENT CRUSHER OPERATOR Pulse 76 08/24/2022 9:25 AM CDT Temperature 36.6 C (97.8 F) 08/24/2022 8:51 AM CDT Respiratory Rate 16 08/24/2022 8:51 AM CDT Oxygen Saturation 100% 08/24/2022 8:51 AM CDT Inhaled Oxygen Concentration - - Weight 96.1 kg (211 lb 12.8 oz) 023 10:18 AM CEMENT CRUSHER OPERATOR Height 170.2 cm (5' 7 ) 03/31/2023 10:1 8 AM CEMENT CRUSHER OPERATOR Body Mass Index 33.17 03/31/2023 10:18 AM CEMENT CRUSHER OPERATOR Functional Status Functional Status Response Date of [...] Diagnosis Comment 03/07/2021 5:08 AM CDT [facility] ([facility]) Comment:NEGATIVE FOR INTRAEP ITHELIAL LESION OR MALIGNANCY. Specimen Adequacy Comment 021 5:08 AM CDT [facility] ([facility]) Comment: Satisfactory for evaluation. Endocervical and/or squamous metaplastic cells (endocervical component) are present. Performed by Comment 03/07/2021 5:08 AM CDT [facility] ([facility]) Comment:Yann Miles, Cyto technologist (ASCP) Comment . 03/07/2021 5:08 AM CDT [facility] ([facility]) Note Comment 03/07/2021 5:08 AM CDT [facility] ([facility]) Comment: The Pap smear is a screening test designed to aid in the detection of premalignant and malignant conditions of the uterine cervix. It is not a diagnostic procedure and should not be used as the sole means of detecting cervical cancer. Both false-positive and false-negative reports do occur. [facility] CPT Code Automation Comment 03/07/2021 5:08 AM CDT [facility] ([facility]) Comment: This liquid based ThinPrep(R) pap test was screened with the use of an image guided system. Human papillomavirus Aptima Negative Negative 03/07/2021 5:08 AM CDT [facility] ([facility]) Comment: This nucleic acid amplification test detects fourteen high-risk HPV types (16,18,31,33,35,39,45,51,52,56,58,59,66,68) without differentiation. Pathology/Cytolo gy PART OF UTERINE CERVIX / Unknown Collection / Unknown 03/03/2021 2:01 PM CDT 03/03/2021 2:14 PM CDT Narrative [facility] ([facility]) - 03/07/2021 5:08 AM CDT Performed at: 01 - [address] [id number] Blender Operator: Joy Pyle MD, Phone: [phone] Performed at: 02 - [address] [id number] Blender Operator: Joy Pyle MD, Phone: [phone] Specimen Comment: No. of containers..01 ThinPrep Vial Anuradha Kumar MD LAB - PATHOLOGY/CYTO LOGY ORDERABLES [facility] ([facility]) [address] [place] [address] * HIV-1 HIV-2 ANTIBODY + HIV P24 AG PANEL (01/07/2018 1:40 PM CDT) [facility] HIV1/2 Ab + P24 Ag Non Reactive Non Reactive 01/07/2018 4:39 PM CDT [facility] Blood BLOOD SPECIMEN / Unknown Venipuncture / Unknown 01/07/2018 1:40 PM CDT 01/07/2018 1:47 PM CDT Narrative [facility] - 01/07/2018 4:39 PM CDT No Laboratory evidence of HIV infection. Terrie Saez MD LAB - CHEMISTRY HUGO JENKINS [facility] [address] [place] [address] * HEPATITIS SCREEN ACUTE (01/07/2018 1:40 PM CDT) [facility] HAV Antibody IgM Non Reactive Non Reactive 01/07/2018 3:12 PM CDT [facility] HBsAg Non Reactive Non Reactive 01/07/2018 3:12 PM CDT [facility] HBc Antibody IgM Non Reactive Non Reactive 01/07/2018 3:12 PM CDT [facility] HCV Antibody Screen Non Reactive Non Reactive 01/07/2018 3:12 PM CDT [facility] HCV S/C Ratio 0.05 0.00 - 0.79 01/07/2018 3:12 PM CDT [facility] Comment: Vjpdrr-vf-pxsjhb ratio (S/CO) <0.80: Non Reactive Blood BLOOD SPECIMEN / Unknown Venipuncture / Unknown 01/07/2018 1:40 PM CDT 01/07/2018 1:47 PM CDT Narrative [facility] - 01/07/2018 3:12 PM CDT Non Reactive - Antibodies to Hepatitis C virus (HCV) were not detected, result does not exclude early acute HCV infection. Non Reactive - Antibodies to Hepatitis C virus (HCV) were not detected, result does not exclude early acute HCV infection. Terrie Saez MD LAB - CHEMISTRY HUGO Benitez Organization Address City/State/ZIP Co de Phone Number [facility] [address] [place], [place] [id number] from Last 3 Months or Most Recently Relevant to Health Maintenance Advance Directives * Full Code (Latest Code Status on File) Date Activated Date Inactivated Comments 11/13/2015 5:38 AM 11/17/2015 2:07 PM * Full Code Date Activated Date Inactivated Comments 11/11/2015 9:48 PM 11/13/2015 5:38 AM Care Teams Flight Engineer Relationship Specialty Start Date End Date PcpQuin PCP - General 11/12/22
--- OUTSIDE RECORDS SUMMARY | 2024-06-20 09:18 | XMS_ITS | Clinical Summary ---
Author Organization [facility] [employer] Address [address] [place] [address] Care Team Providers Care King Maker Name Role Phone Pcp, Quin Mejia Im-Fm Primary Care Provider Unavailable Source Comments [facility] [employer],non-owned Affiliates and Associated Physician Practices is amultiple site organization consisting of ambulatory clinics and hospital sitesin [place], [place] and [place]. This disclosure is being madepursuant to the Care Everywhere program and may not contain all information available regarding this patient. Last updated 18.[facility] [employer] Allergies Active Allergy Reactions Criticality Noted Date [...] 03/03/2021 Immunizations Name Administration Dates Next Due [email or web address] primary monoval ent 12+ yr 0.3mL Purple [...] Comments Blood Pressure 116/62 03/31/2023 10:18 AM TRAY SETTER Pulse 76 08/24/2022 9:25 AM CDT Temperature 36.6 C (97.8 F) 08/24/2022 8:51 AM CDT Respiratory Rate 16 08/24/2022 8:51 AM CDT Oxygen Saturation 100% 08/24/2022 8:51 AM CDT Inhaled Oxygen Concentration - - Weight 96.1 kg (211 lb 12.8 oz) 023 10:18 AM TRAY SETTER Height 170.2 cm (5' 7 ) 03/31/2023 10:1 8 AM TRAY SETTER Body Mass Index 33.17 03/31/2023 10:18 AM TRAY SETTER Plan of Treatment Health Maintenance Due Date [...] Diagnosis Comment 03/07/2021 5:08 AM CDT [facility] ([facility]) Comment:NEGATIVE FOR INTRAEP ITHELIAL LESION OR MALIGNANCY. Specimen Adequacy Comment 5:08 AM CDT [facility] ([facility]) Comment: Satisfactory for evaluation. Endocervical and/or squamous metaplastic cells (endocervical component) are present. Performed by Comment 03/07/2021 5:08 AM CDT [facility] ([facility]) Comment:Yann Miles, Cyto technologist (ASCP) Comment . 03/07/2021 5:08 AM CDT [facility] ([facility]) Note Comment 03/07/2021 5:08 AM CDT [facility] ([facility]) Comment: The Pap smear is a screening test designed to aid in the detection of premalignant and malignant conditions of the uterine cervix. It is not a diagnostic procedure and should not be used as the sole means of detecting cervical cancer. Both false-positive and false-negative reports do occur. IGLBP CPT Code Automation Comment 03/07/2021 5:08 AM CDT [facility] ([facility]) Comment: This liquid based ThinPrep(R) pap test was screened with the use of an image guided system. Human papillomavirus Aptima Negative Negative 03/07/2021 5:08 AM CDT [facility] ([facility]) Comment: This nucleic acid amplification test detects fourteen high-risk HPV types (16,18,31,33,35,39,45,51,52,56,58,59,66,68) without differentiation. Pathology/Cytolo gy PART OF UTERINE CERVIX / Unknown Collection / Unknown 03/03/2021 2:01 PM CDT 03/03/2021 2:14 PM CDT Narrative [facility] ([facility]) - 03/07/2021 5:08 AM CDT Performed at: 01 - [address] [id number] Sewer Repairer: Joy Pyle MD, Phone: [phone] Performed at: 02 - [address] [id number] Sewer Repairer: Joy Pyle MD, Phone: [phone] Specimen Comment: No. of containers..01 ThinPrep Vial Anuradha Kumar MD LAB - PATHOLOGY/CYTO LOGY ORDERABLES Performing Organization Address City/[facility]/ZIP Co de Phone Number [facility] ([facility]) [address] [place] [address] * HIV-1 HIV-2 ANTIBODY + HIV P24 AG PANEL (01/07/2018 1:40 PM CDT) HIV1/2 Ab + P24 Ag Non Reactive Non Reactive 01/07/2018 4:39 PM CDT [facility] Blood BLOOD SPECIMEN / Unknown Venipuncture / Unknown 01/07/2018 1:40 PM CDT 01/07/2018 1:47 PM CDT Narrative [facility] - 01/07/2018 4:39 PM CDT No Laboratory evidence of HIV infection. Terrie Saez MD LAB - CHEMISTRY HUGO JENKINS [facility] [address] [place] [address] * HEPATITIS SCREEN ACUTE (01/07/2018 1:40 PM CDT) HAV Antibody IgM Non Reactive Non Reactive 01/07/2018 3:12 PM CDT [facility] HBsAg Non Reactive Non Reactive 01/07/2018 3:12 PM CDT [facility] HBc Antibody IgM Non Reactive Non Reactive 01/07/2018 3:12 PM CDT [facility] HCV Antibody Screen Non Reactive Non Reactive 01/07/2018 3:12 PM CDT [facility] HCV S/C Ratio 0.05 0.00 - 0.79 01/07/2018 3:12 PM CDT [facility] Comment: Roirqm-cy-jnymty ratio (S/CO) <0.80: Non Reactive Blood BLOOD SPECIMEN / Unknown Venipuncture / Unknown 01/07/2018 1:40 PM CDT 01/07/2018 1:47 PM CDT Narrative [facility] - 01/07/2018 3:12 PM CDT Non Reactive - Antibodies to Hepatitis C virus (HCV) were not detected, result does not exclude early acute HCV infection. Non Reactive - Antibodies to Hepatitis C virus (HCV) were not detected, result does not exclude early acute HCV infection. Terrie Saez MD LAB - CHEMISTRY HUGO JENKINS [facility] Organization Address City/State/ZIP Co de Phone Number [facility] [address] [phone] from Last 3 Months or Most Recently Relevant to Health Maintenance Advance Directives * Full Code (Latest Code Status on File) Date Activated Date Inactivated Comments 11/13/2015 5:38 AM 11/17/2015 2:07 PM * Full Code Date Activated Date Inactivated Comments 11/11/2015 9:48 PM 11/13/2015 5:38 AM Care Teams King Maker Relationship Specialty Start Date End Date Quin Wintre Russ PCP - General 11/12/22
[2024-06-20 09:31] LABS: Influenza A QL RT-PCR Positive (Negative); Influenza B QL RT-PCR Negative (Negative); RSV RNA, RT-PCR Negative (Negative); SARS-CoV-2 RNA PCR Negative (Negative)
--- NOTE | 2024-06-20 09:37 | ED_ITS ---
HPI - General Adult General Chief complaint: Upper Respiratory Infection Stated complaint: body aches, runny nose, dizzy, cough Time Seen by Provider: 06/20/24 08:44 Source: patient Mode of arrival: ambulatory Limitations: no limitations History of Present Illness HPI narrative: 29-year-old status post gastric sleeve here with complaints of not feeling well, body aches, nausea, vomiting since 3:00 a.m. this morning. She also states that she has fever. She denies any shortness of breath. Onset (ago): hour(s) (6) Severity: moderate Pain Consistency: constant Relieving factors: none Exacerbating factors: none Related Data Home Medications ?Medication ?Instructions ?Recorded ?Confirmed ?Last Taken ?Type ergocalciferol (vitamin D2) 50 mcg 50 mcg PO DAILY PRN 03/23/24 04/05/24 Unknown History (2,000 unit) tablet iron infusion .Route 03/23/24 04/05/24 Unknown History tranexamic acid 650 mg tablet 650 mg PO Q12H 03/23/24 04/05/24 Unknown History Allergies Allergy/AdvReac Type Severity Reaction Status Date / Time amoxicillin (From Augmentin) AdvReac Nausea and Verified 06/20/24 08:47 Vomiting clavulanic acid (From AdvReac Nausea and Verified 06/20/24 08:47 Augmentin) Vomiting Review of Systems Review of Systems: All systems reviewed & are unremarkable except as noted in HPI and below Constitutional: Constitutional: Reports no additional constitutional complaints Eyes: Eyes: Reports no additional eye complaints Cardiovascular: Cardiovascular: Reports no additional cardiovascular complaints Respiratory: Respiratory: Reports no additional respiratory complaints Gastrointestinal: Gastrointestinal: Reports no additional gastrointestinal complaints Musculoskeletal: Musculoskeletal: Reports no additional musculoskeletal complaints Neurologic: Reports system reviewed and no additional complaints, except as documented [facility] Past Medical History Medical History Anemia Surgical History Surgical History H/O section H/O gastric sleeve Family History Family History Mother Thyroid disease Grandparent Hypertension Social History Social History Smoking status: Never smoker Alcohol intake: current Substance use: never Exam Narrative: GENERAL: Well-appearing, well-nourished, and in no acute distress. HEAD: Normocephalic, atraumatic. EYES: PERRLA and EOMI. ENT: Nares clear, no rhinorrhea or epistaxis. Mucous membranes moist. NECK: Supple. CHEST: Clear to auscultation. No respiratory distress. HEART: Regular rate and rhythm. No murmur heard. Normal peripheral pulses. ABDOMEN: Soft, nontender, nondistended, normal active bowel sounds. EXTREMITIES: Normal range of motion. No edema. SKIN: Warm, dry, no rash. NEURO: No focal deficits. Alert and oriented x3. PSYCH: Normal mood and affect. Course Course Emergency Course: Inform patient about her lab work. Did give a L of fluid as her request. Advised her to take Tamiflu as prescribed Vital Signs Vital signs: Vital Signs Temperature 38.4 C H 06/20/24 08:44 Pulse Rate 121 H 06/20/24 08:44 Respiratory Rate 06/20/24 08:44 Blood Pressure 133/76 06/20/24 08:44 Pulse Oximetry 100 06/20/24 08:44 Oxygen Delivery Room Air 06/20/24 08:44 Temperature 38.4 C H 06/20/24 08:44 Pulse Rate 121 H 06/20/24 08:44 Respiratory Rate 18 06/20/24 08:44 Blood Pressure 133/76 06/20/24 08:44 Pulse Oximetry 100 06/20/24 08:47 Oxygen Delivery Room Air 06/20/24 08:47 Medical Decision Making Vital Signs Vital Signs: Vital Signs Temperature 38.4 C H 06/20/24 08:44 Pulse Rate 121 H 06/20/24 08:44 Respiratory Rate 18 06/20/24 08:44 Blood Pressure 133/76 06/20/24 08:44 Pulse Oximetry 100 06/20/24 08:44 Oxygen Delivery Room Air 06/20/24 08:44 Temperature 38.4 C H 06/20/24 08:44 Pulse Rate 121 H 06/20/24 08:44 Respiratory Rate 18 06/20/24 08:44 Blood Pressure 133/76 06/20/24 08:44 Pulse Oximetry 100 06/20/24 08:47 Oxygen Delivery Room Air 02/18/25 08:47 Lab Data Labs: Lab Results 06/20/24 Range/Units 08:51 Influenza A (RT-PCR) Positive A (Negative) Influenza B (RT-PCR) Negative (Negative) RSV (RT-PCR) Negative (Negative) SARS-CoV-2 RNA (RT-PCR) Negative (Negative) Discharge Plan Discharge Clinical Impression: Influenza Patient Disposition: Home, Self-Care Condition: Stable Instructions: Influenza (DC) Patient Language: Swiss Prescriptions: New ondansetron 4 mg tablet,disintegrating 4 mg PO Q6-8H PRN (Reason: nausea and vomiting) Qty: 14 0RF oseltamivir [Tamiflu] 75 mg capsule 75 mg PO Q12H 5 Days Qty: 10 0RF No Action tranexamic acid 650 mg tablet 650 mg PO Q12H ergocalciferol (vitamin D2) 50 mcg (2,000 unit) tablet 50 mcg PO DAILY PRN iron infusion .Route Rx Instructions: as directed Follow-up/Referrals: Bo Medrano MD [Physician] - UNKNOWN,DOCTOR [Primary Care Provider] - Time of Disposition: 10:41
[2024-06-20] MEDS: MORPHINE SULFATE INJ (*CRX) 10 MG/ML AMP 6 MG IM (09:49)
[2024-06-20] MEDS: ONDANSETRON HCL ODT 4 MG TABLET PO (09:49)
[2024-06-20] MEDS: SODIUM CHLORIDE 0.9% IV 1,000 ML 999 ML IV CONT (10:07)
[2024-06-20 10:08] VITALS: BP 111/79; PULSE 113; RESP 18; O2SAT 100
[2024-06-20] MEDS: ACETAMINOPHEN 500 MG TABLET 1000 MG PO (10:38)
[2024-06-20 16:59] VITALS: BP 111/79; PULSE 113; RESP 18; TEMP 36.8; O2SAT 100
== END 2024-06-20 11:20 | disposition home or self-care (01) ==
PROVIDERS: Emergency Provider Family Medicine
DX: J10.1 Influenza due to other identified influenza virus with other respiratory manifestations (principal); Z20.822 Contact with and (suspected) exposure to COVID-19; D64.9 Anemia, unspecified
CPT/HCPCS: 87637; 96360; 96372; 99283; A9270; J2270; J7030

== ENCOUNTER 2025-01-02 10:17 | Emergency (ER) | payer OTHER, SELFPAY ==
[2025-01-02 10:24] VITALS: BP 112/74; PULSE 90; RESP 18; TEMP 36.4; O2SAT 100
[2025-01-02 10:37] LABS: EDUAAPPEAR Cloudy; EDUABILI Negative (Negative); EDUABLOOD Negative (Negative); EDUACOLOR1 Yellow; EDUAGLUCOSE Negative (Negative); EDUAKETONE Negative (Negative); EDUALEUKO 1+ (Negative); EDUANITRATE Negative (Negative); EDUAPH 6.0; EDUAPROTEIN Negative (Negative); EDUASPGRAVITY 1.010; EDUAUROBILI 0.2
--- OUTSIDE RECORDS SUMMARY | 2025-01-02 10:43 | XMS_ITS | Clinical Summary ---
Author Organization [facility] Address [address] [place] [address] Care Team Providers Care Secretary Of State Name Role Phone Unavailable Primary Care Provider [...] 3 - 3-dose series) 01/23/2008 11/28/2007, 09/27/2007 Human Papillomavirus (HPV) Immunization (2 - 3-dose series) 05/08/2009 04/10/2009 HPV/Cotest 2023 Cervical Cancer Screening (CCS) 03/03/2024 Pap Smear 03/03/2024 03/03/2021 Influenza Immunization (#1) 2025 10/0 05/2019, 04/11/2019, 04/06/2018, Additional history exists SARS-COV-2 Immunization ( season) 2025 05/07/2021, 09/19/2020 Respiratory Syncytial Virus (RSV) Immunization (Adult) (1 [...]
--- OUTSIDE RECORDS SUMMARY | 2025-01-02 10:45 | XMS_ITS | Clinical Summary ---
Author Organization [facility] Address [address] [place] [address] Care Team Providers Care Glaze Supervisor Name Role Phone No, Physician Primary Care Provider [phone] Allergies Active Allergy Reactions Criticality Noted Date Comments Amoxicillin-Pot Clavulanate Vomiting Low 05/26/2018 Clavulanic Acid Stomach upset Low 05/18/2018 Stomach/GI Upset Iron Dextran Other (See comments) Medium 11/06/2021 Itchy throat and rigors Medications ergocalciferol (VITAMIN D) 50,000 unit capsuleIndicati ons:Vitamin D Deficiency Take 1 capsule (50,000 Units total) by mouth every 30 (thirty) days 12 capsule 03/17/2024 Active Active Problems Problem Noted Date Diagnosed Date Iron deficiency anemia 07/16/2021 Arrest of descent, delivered, current hospitaliz ation 07/10/2018 S/P 07/10/2018 Morbid obesity due to excess calories 05/26/2018 Overview (05/26/2018): Added automatically from request for surgery [id number] Gestational thrombocytopenia 09/11/2015 Overview (07/10/2018): Overview: Platelets 132 on 08/07/15 [...] Encounters Date Type Department Care Team Description 10/05/2024 8:00 AM CDT Infusion [facility] [place] [address] [place] [address] Iron deficiency anemia, unspecified iron deficiency anemia [...] on file 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 Gender Identity Not on file Sexual Orientation Not on file Obstetrics History Para Term AB IAB SAB Ectopic Multiple Livin g Live Births 1 Date Outcome GA Total Labor Labor/2nd/3rd Weight Sex Type Anes PTL Clau A1 A5 Name Clin Last Filed Vital Signs Vital Sign Reading Time Taken Comments Blood Pressure 111/74 10/05/2024 8:29 AM CDT Pulse 81 10/05/2024 8:29 AM CDT Temperature 36.8 C (98.2 F) 10/05/2024 8:29 AM CDT Respiratory Rate 17 10/05/2024 8:29 AM CDT Oxygen Saturation 100% 10/05/2024 8:29 AM CDT Inhaled Oxygen Concentration - - Weight 95.7 kg (211 lb) 10/05/2024 8:29 AM CDT Height 170.2 cm (5' 7) 02/15/2024 9:39 AM CDT Body Mass Index 33.05 02/15/2024 9:39 AM CDT Plan of Treatment Health Maintenance Due Date Last Done Comments Depression Screening 1995 Hepatitis C Screening 1995 HPV Vaccines (2 - 3-dose series) 05/08/2009 04/10/2009 Varicella Vaccines (2 of 2 - 13+ 2-dose series) 05/08/2009 04/10/2009 Regular Well Visit/Exam 18-64 2011 Cervical Cancer Screening 12/18/2020 12/19/2019 Covid-19 Vaccine ( season) 2024 05/07/2021, 09/19/2020, 08/28/2020 Influenza Vaccine (#1) 2025 0, 04/11/2019, 04/06/2018, Additional history exists DTaP/Tdap/Td Vaccine (9 - Td or Tdap) 08/06/2025 08/07/2015, 04/10/2009, 09/27/2007, Additional history exists Hepatitis B Screening Completed 11/28/2007, 008 Pneumococcal vaccine <65 Aged Out No longer eligible based on patient's age to complete this topic Procedures Procedure Name Priority Date/Time Associated Diagnosis Comments PAP ONLY Routine 12/19/2019 12:00 PM CDT from Last 3 Months or Most Recently Relevant to Health Maintenance Results * Pap Only (12/19/2019 12:00 PM CDT) 12/19/2019 12:0 0 PM CDT 12/19/2019 12:41 PM CDT Narrative 12/22/2019 2:30 PM CDT [facility] results best viewed via link to PDF [facility] [place] [address] CYTOPATHOLOGY REPORT FINAL Patient Name: RASTA WARE Gender: F : 1995 (Age: 24) Address: [address] [place] [address] Hospital #: [id number] Service: FAMILY SERVICES COORDINATOR Location: [facility] Patient Type: [facility] Ref Lab Taken: 12/19/2019 Received: 12/19/2019 Accessioned: 12/20/2019 Reported: 12/22/2019 Physician(s): Mary Faulkner M.D. FINAL INTERPRETATION SOURCE OF SPECIMEN: Liquid based Thin Prep pap STATEMENT OF ADEQUACY: - Satisfactory for evaluation - Endocervical cells/transformation zone sample present GENERAL CATEGORY: - Negative for squamous intraepithelial lesion or malignancy cad/12/22/2019 14:30 Lnei Braga M.S.,CT(ASCP) Report Electronically Reviewed and Signed Out By Leni Braga M.S.,CT(ASCP) 12/22/2019 14:30:17 Cervicovaginal Cytology (Pap Test) Disclaimer: [...] determined by the Surgical Pathology Department at [facility] as part of an ongoing clinical quality analyst program and in compliance with federally mandated [...] determined by the Surgical Pathology Department of [facility]. It has not been cleared or approved by the U. S. Food and Drug Administration. Mary Faulkner MD LAB CYTOLOGY ORDERABLES Fin al Result from Last 3 Months or Most Recently Relevant to Health Maintenance Insurance [employer] [facility] [employer] [employer] Address: [address] [place] [address] [facility] [employer] [facility] Advance Directives For more information, please contact: [phone] * Full Code (Latest Code Status on File) Date Activated Date Inactivated Comments 12/16/2018 8:56 PM 12/20/2018 6:08 PM * Full Code Date Activated Date Inactivated Comments 07/06/2018 2:35 PM 07/06/2018 8:21 PM Care Teams Glaze Supervisor Relationship Specialty Start Date End Date No, Physician PCP - General 01/03/20
--- OUTSIDE RECORDS SUMMARY | 2025-01-02 10:45 | XMS_ITS | Encounter Summary ---
Author Organization [facility] Address [address] [place] [address] Phone Care Team Providers Care Patching Machine Operator Name Role Phone No, Physician Primary Care Provider [phone] Miscellaneous, Not In File Primary Care Provider Unavailable No, Physician Primary Care Provider [phone] Karen Mosley MD Primary Care Provider [phone] No, Physician Primary Care Provider [phone] Encounter Details Date Type Department Care Team (Late st Contact Info) Description 07/20/2018 Documentation [facility] Medicine Pain Management [address] [place] [address] Penelope Alan Social History Tobacco Use Types Packs/Day Years Used Date Smoking Tobacco: Never Smokeless Tobacco: Never Alcohol Use Standard Drinks/Week Comments No 0 (1 standard drink = 0.6 oz pur e alcohol) Comments Unknown Sex and Gender Information Value Date Recorded Sex Assigned at Not on file 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
--- OUTSIDE RECORDS SUMMARY | 2025-01-02 10:45 | XMS_ITS | Encounter Summary ---
Author Organization [facility] Address [address] [place] [address] Phone Care Team Providers Care Supervisor Pipeline Name Role Phone No, Physician Primary Care Provider [phone] Miscellaneous, Not In File Primary Care Provider Unavailable No, Physician Primary Care Provider [phone] Karen Mosley MD Primary Care Provider [phone] No, Physician Primary Care Provider [phone] Encounter Details Date Type Department Care Team (Late st Contact Info) Description 09/01/2018 Telephone [facility] Medicine Pain Management [address] [place] [address] Penelope Alan Social History Tobacco Use Types Packs/Day Years Used Date Smoking Tobacco: Never Smokeless Tobacco: Never Alcohol Use Standard Drinks/Week Comments No 0 (1 standard drink = 0.6 oz pur e alcohol) Comments Unknown Sex and Gender Information Value Date Recorded Sex Assigned at Not on file 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 Gender Identity Not on file Sexual Orientation Not on file documented as of this encounter Plan of Treatment Not on file documented as of this encounter Visit Diagnoses Not on filedocumented in this encounter Additional Health Concerns Infection Onset Date Last Indicated Resolved Time COVID: Suspected 02/07/2020 02/07/2020 02/08/2020 1:03 PM CDT COVID19 02/07/2020 02/07/2020 02/21/2020 3:0 7 AM CDT documented as of this encounter Care Teams Supervisor Pipeline Relationship Specialty Start Date End Date No, Physician PCP - General 11/30/17 12/04/18 Miscellaneous, Not In File PCP - General 12/05/18 9 No, Physician PCP - General 12/06/18 07/13/19 Karen Mosley MD [address] [place] [address] DR Espin[address] [address] PCP - General Internal Medicine 07/14/19 01/02/20 No, Physician PCP - General 01/03/20 documented as of this encounter
--- OUTSIDE RECORDS SUMMARY | 2025-01-02 10:45 | XMS_ITS | Clinical Summary ---
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
--- NOTE | 2025-01-02 11:03 | ED.FEMALEGU ---
HPI - Female Genitourinary General Chief complaint: Urogenital-Female Stated complaint: urinary irritation Time Seen by Provider: 01/02/25 10:45 Source: patient and RN notes reviewed Mode of arrival: ambulatory Limitations: no limitations History of Present Illness HPI Narrative: 29-year-old female presents Express Care complaining of vaginal spotting for last 4 days. Patient says she noticed some blood after she wipes after using the bathroom. Patient's said her last menstrual period was 1 week ago. Patient says she has a history of abnormal spotting after her period and was told she needs a biopsy of her uterus but has not gotten it done yet. Patient denies any urinary symptoms, fevers, body aches, chills, nausea, vomiting, abdominal pain, vaginal discharge, pelvic pain, or any other symptoms. Patient states she is not sexually active. Patient denies any concerns or or STIs. Related Data Home Medications ?Medication ?Instructions ?Recorded ?Confirmed ?Last Taken ?Type iron infusion .Route 03/23/24 04/05/24 Unknown History tranexamic acid 650 mg tablet 650 mg PO Q12H 03/23/24 04/05/24 Unknown History Allergies Allergy/AdvReac Type Severity Reaction Status Date / Time amoxicillin (From Augmentin) AdvReac Intermediate Nausea and Verified 01/02/25 10:32 Vomiting clavulanic acid (From AdvReac Intermediate Nausea and Verified 01/02/25 10:32 Augmentin) Vomiting Review of Systems Review of Systems: CONSTITUTIONAL: Denies fever, chills, or sweats. EYES: Denies visual changes, redness, or discharge. ENT: Denies rhinorrhea, congestion, sore throat, or otalgia. CARDIOVASCULAR: Denies chest pain, palpitations, or edema. RESPIRATORY: Denies cough or dyspnea. GASTROINTESTINAL: Denies abdominal pain, nausea, vomiting, or diarrhea. GENITOURINARY: Denies dysuria, vaginal discharge, pelvic pain, painful intercourse or hematuria. Positive for Vaginal spotting. SKIN: Denies rash or itching. MUSCULOSKELETAL: Denies back pain, joint pain, or myalgia. NEUROLOGIC: Denies headache, numbness, or weakness. PSYCHIATRIC: Denies anxiety or depression. All other systems reviewed are negative, except as documented in HPI. [facility] Past Medical History Medical History Anemia Surgical History Surgical History H/O section H/O gastric sleeve Family History Family History Mother Thyroid disease Grandparent Hypertension Social History Social History Smoking status: Never smoker Alcohol intake: current Substance use: never Comments At the time of my signature, I reviewed and agree with the nursing past medical, surgical, social, and family history. There is no relevant family history pertinent to the patient complaint. Exam Narrative: GENERAL: This is a well-nourished, well-developed adult, in no apparent distress. They are non ill-appearing, nontoxic appearing. HEAD: normocephalic, atraumatic. EYES: Sclera clear/white. Conjunctiva normal. Vision is grossly intact. Extraocular movements intact EARS: External ears normal, Hearing grossly intact. NOSE: External nose normal THROAT: Mucous membranes moist, NECK: Neck supple, CARDIOVASCULAR: Regular rate and rhythm RESPIRATORY: Respiratory rate normal, respiratory effort nonlabored, no respiratory distress GASTROINTESTINAL: Abdomen soft, non-tender, nondistended. SKIN: warm, Dry, intact with no suspicious lesions or rash, good texture and turgor. NEURO: awake, alert, and oriented to person, place and time. There were no obvious focal neurologic abnormalities. EXTREMITIES: No joint tenderness, effusion, or edema noted. Course Course Emergency Course: Portions of this record may have been created with voice recognition software Level of Care: Express Care Visit Vital Signs Vital signs: Vital Signs Temperature 97.6 F 01/02/25 10:24 Pulse Rate 90 01/02/25 10:24 Respiratory Rate 18 01/02/25 10:24 Blood Pressure 112/74 01/02/25 10:24 Pulse Oximetry 100 01/02/25 10:24 Oxygen Delivery Room Air 01/02/25 10:24 Temperature 97.6 F 01/02/25 10:24 Pulse Rate 90 01/02/25 10:24 Respiratory Rate 18 01/02/25 10:24 Blood Pressure 112/74 01/02/25 10:24 Pulse Oximetry 100 01/02/25 10:24 Oxygen Delivery Room Air 01/02/25 10:24 Reviewed MDM - Female Genitourinary MDM Narrative Medical decision making narrative: Urine dipstick shows 1+ leukocytes. Patient has no urinary symptoms. Urine culture is pending. Patient likely has abnormal vaginal spotting. Patient on a denies being sexually active denies any concern a STIs. Advised patient to follow-up with her OBGYN further evaluation Discussed physical exam findings. Advised supportive measures and signs/symptoms to go to the ER. Pt is appropriate for outpt treatment and f/u. Differential Diagnosis Differential diagnosis: Likely urinary tract infection, ovarian cyst, dysmenorrhea and other Lab Data Attestation: I reviewed the patient's lab results. Labs: Lab Results 01/02/25 Range/Units 10:35 POC Urine Color Yellow POC Urine Clarity Cloudy POC Urine pH 6.0 POC Ur Specif Lynch 1.010 POC Urine Protein Negative (Negative) POC Ur Glucose (UA) Negative (Negative) POC Urine Ketones Negative (Negative) POC Urine Blood Negative (Negative) POC Urine Nitrite Negative (Negative) POC Urine Bilirubin Negative (Negative) POC Urine Urobilinogen 0.2 POC U Leukocyte Esteras 1+ (Negative) Critical Care Time Critical Care Time Critical Care Time: No Discharge Plan Discharge Clinical Impression: Vaginal spotting Patient Disposition: Home Condition: Stable Instructions: Menorrhagia (ED) Additional Instructions: Your urine will be sent of for a culture to determine if bacteria is causing your symptoms. If the culture shows a UTI, you will be notified and an antibiotic will be called in for you. Follow-up with your OBGYN in 3-5 days. If you develops any abdominal pain, fevers, nausea, vomiting, large vaginal bleeding going through a pad an hour, passing large blood clots, or any serious concerns go to the ER immediately. Patient Language: Swedish Prescriptions: No Action tranexamic acid 650 mg tablet 650 mg PO Q12H iron infusion .Route Rx Instructions: as directed Follow-up/Referrals: PHYSICIAN,SECTION LEADER SCREEN PRINTING [Primary Care Provider, Internal Medicine] Time of Disposition: 11:02
== END 2025-01-02 11:03 | disposition home or self-care (01) ==
DX: N93.9 Abnormal uterine and vaginal bleeding, unspecified (principal); D64.9 Anemia, unspecified; Z98.84 Bariatric surgery status
CPT/HCPCS: 81003; 87086; 99213; G0463